=== PATIENT | female | born 2000 | race Caucasian/White ===

== ENCOUNTER 2020-03-08 10:19 | Emergency (ER) | payer MEDICAID, SELFPAY ==
[2020-03-08 10:26] VITALS: BP 109/64; PULSE 88; RESP 16; TEMP 36.6; O2SAT 98; BMI 28.3
--- NOTE | 2020-03-08 10:59 | ED.GENADULT ---
HPI - General Adult General Chief complaint: General Medical Stated complaint: COVID TESTING Time Seen by Provider: 03/08/20 10:22 History of Present Illness HPI narrative: Patient complains of body aches, feeling tired, mild runny nose and wants to be tested for COVID, she denies any close exposure Related Data Allergies Allergy/AdvReac Type Severity Reaction Status Date / Time No Known Allergies Allergy Unverified 01/24/20 19:23 [No Known Allergies*] Review of Systems Review of Systems: Review systems is positive for body aches fatigue and runny nose There is no cough no sputum no fever no chills no shortness of breath no chest pain, no sore throat no abdominal pain no nausea no vomiting no diarrhea, no skin rash Yes all other systems are reviewed and are negative PMFSH Past Medical History Source: nursing notes reviewed Medical History (Updated 03/08/20 @ 11:14 by NICHOLE Samuels) No known health problems Social History Social History Alcohol intake: never Smoked in Last 30 Days: No Use of substances other than those prescribed or required for medical reasons: No Advance Directives: No Advance Directives Information Provided: No Physical Exam Vital Signs: Vital Signs: Vital Signs Temp Pulse Resp BP Pulse Ox 03/08/20 10:26 97.8 F 88 16 109/64 98 Body Mass Index 28.3 General appearance is A&O x3 comfortable no acute distress Facial exam the eyes were not red, no discharge, no sinus tenderness The neck was supple The chest was clear to auscultation bilaterally, no respiratory distress, breath sounds were full and equal The heart was no murmurs rate and rhythm regular Extremities no edema, no calf tenderness No rash Course Course Course Narrative: Well-appearing patient was tested for COVID Discharge Plan Discharge Clinical Impression: Acute viral syndrome Patient Disposition: Home, Self-Care Additional Instructions: We will call you with COVID test results in 1-3 days For return to work you would need a negative COVID test and improvement in symptoms as the testing can miss some cases Return to ER any time any worse condition or any concerns Stand Alone Forms: Work/School Release Interventions: ED Discharge Assessment Last Done: 03/08/20 11:18 Discharge Date/Time: 03/08/20 11:34
== END 2020-03-08 11:34 | disposition home or self-care (01) ==
PROVIDERS: Physician Assistant Medical; Emergency Provider Emergency Medicine
DX: B34.9 Viral infection, unspecified (principal); Z11.59 Encounter for screening for other viral diseases
CPT/HCPCS: 99283; U0003

== ENCOUNTER → 2020-04-15 12:53 | Outpatient (BNVA) | payer MEDICAID, SELFPAY | PROVIDERS: Visit Provider Advanced Practice Midwife | DX: Z32.01 Encounter for pregnancy test, result positive (principal); O26.891 Other specified pregnancy related conditions, first trimester; N92.6 Irregular menstruation, unspecified; Z3A.12 12 weeks gestation of pregnancy | CPT/HCPCS: 81025; 99212 ==

== ENCOUNTER → 2020-04-22 10:08 | Outpatient (BNVA) | payer MEDICAID, SELFPAY | PROVIDERS: Visit Provider Advanced Practice Midwife | DX: Z76.89 Persons encountering health services in other specified circumstances (principal) ==

== ENCOUNTER 2020-04-25 12:50 | Outpatient (REF) | payer MEDICAID, SELFPAY ==
--- NOTE | 2020-04-25 12:57 | US_ITS ---
EXAMINATION: OBSTETRICAL ULTRASOUND, Follow up HISTORY: 19-year-old with unknown LMP COMPARISON: None in this TECHNIQUE: Real time transabdominal imaging with color and M-mode Doppler. PRESENTATION: Breech PLACENTA LOCATION: Posterior without previa AMNIOTIC FLUID: Normal MEASUREMENTS: 1. Biparietal Diameter: 2.8 cm; 15.1 wks 2. Head Circumference: 10.7 cm; 15.1 wks 3. Abdominal Circumference: 8.3 cm; 14.5 wks 4. Femur Length: 1.6 cm; 14.4 wks 5. Heart Rate: 142 beats per minute GESTATIONAL AGE: 1. Established GA: N/A wks 2. GA from [facility]: 15.0 wks ESTIMATED DATE OF DELIVERY: 1. Established KRISTIAN: N/A 2. KRISTIAN from [facility]: 10/17/2020 US/US OB limited IMPRESSION: 1. Single active fetus 2. Biometry is consistent with 15.0 weeks. The best KRISTIAN is 10/17/2020 based on today's examination. RECOMMENDATIONS: 1. f/u in approximately 4 weeks for survey. Thank you very much for this referral.
== END 2020-04-25 12:51 | disposition home or self-care (01) ==
LOC: HO.US 12:50
PROVIDERS: Visit Provider Advanced Practice Midwife
DX: O26.842 Uterine size-date discrepancy, second trimester (principal); Z3A.15 15 weeks gestation of pregnancy
CPT/HCPCS: 76815

== ENCOUNTER → 2020-04-29 13:59 | Outpatient (BNVA) | payer MEDICAID, SELFPAY | PROVIDERS: Visit Provider Advanced Practice Midwife | DX: Z34.82 Encounter for supervision of other normal pregnancy, second trimester (principal) | CPT/HCPCS: 99212 ==

== ENCOUNTER 2020-05-07 10:52 | Outpatient (REF) | payer MEDICAID, SELFPAY ==
[2020-05-10 08:47] LABS: C. trachomatis RNA TMA NOT DETECTED (NOT DETECTED); N. gonorrhoeae RNA TMA NOT DETECTED (NOT DETECTED)
== END 2020-05-07 10:53 | disposition home or self-care (01) ==
LOC: HO.LAB 10:52
PROVIDERS: Visit Provider Advanced Practice Midwife
DX: O99.282 Endocrine, nutritional and metabolic diseases complicating pregnancy, second trimester (principal); O99.342 Other mental disorders complicating pregnancy, second trimester; Z3A.18 18 weeks gestation of pregnancy
CPT/HCPCS: 87491; 87591; 90686; 99212

== ENCOUNTER 2020-05-23 13:21 | Outpatient (REF) | payer MEDICAID, SELFPAY ==
--- NOTE | 2020-05-23 13:43 | US_ITS ---
EXAMINATION: US OBSTETRICAL CLINICAL INFORMATION: 19-year-old at 19.0 weeks of gestation Suspected anomaly COMPARISON: 04/25/2020 TECHNIQUE: Real-time transabdominal ultrasound was performed using C1-5 megahertz transducer. FINDINGS: A single, active, fetus is seen in breech presentation. The placenta is posterior, and the amniotic fluid volume is wnl. MEASUREMENTS: 1. Biparietal Diameter: 3.9 cm; 18.0 wks 2. Occipital Frontal Diameter: 5.6 cm 3. Head Circumference: 16.0 cm; 19.0 wks 4. Abdominal Circumference: 13.3 cm; 18.6 wks 5. Femur Length: 2.8 cm; 18.5 wks 6. Humerus Length: 2.9 cm; 19.3 wks 7. Tibia Length: 2.7 cm; 19.5 wks 8. Ulna Length: 0.8 cm; 20.2 wks 9. Lateral ventricle: 0.6 cm 10. Cerebellum: 1.9 cm; 19.2 wks 11. Cisterna Magna: 0.5 cm 12. Nuchal Fold: 4.12 mm 13. Heart Rate: 144 beats per minute Rt ovary: normal Lt ovary: normal Cervical length 3.6 cm on T/A. GESTATIONAL AGE: 1. Established GA: 19.0 wks 2. GA from [facility]: 18.5 wks ESTIMATED DATE OF DELIVERY: 1. Established KRISTIAN: 10/17/2020 2. KRISTIAN from [facility]: 10/19/2020 ANATOMY: The visualized anatomy includes but not limited to: 1. Cranium: Normal 2. Intracranial anatomy: cavum septum pellucidi, lateral ventricles, choroid plexus, cerebellum, posterior fossa, third and fourth ventricles. 3. face: orbits, lip/palate, profile, nasal bone 4. Heart: four-chamber view of the heart, ventricular septum, foramen ovale, pulmonary vein, left and right outflow tracts, three-vessel view, 3 vessel trachea view, aortic and ductal arches, situs.. 5. Diaphragm: Normal 6. Abdominal wall: Normal 7. Cord Insertion: Normal 8. Spine: Cervical, thoracic, lumbar, sacral. 9. Stomach: Normal size and shape 10. Right Kidney: Normal 11. Left Kidney: Normal 12. 3 vessel cord: Normal 13. Upper extremity: Open hands, fifth digit. 14. Lower extremity: Tibia, fibula, bilateral feet. 15. Bladder: Normal 16. Genitalia: Male, patient aware US/US OB /maternal detail IMPRESSION: 1. Single, living, intrauterine with appropriate biometry. 2. Normal survey DISCUSSION: I reviewed today's ultrasound findings. We discussed the limitations of ultrasound in diagnosing aneuploidy and other congenital abnormalities. I reviewed the differences between screening test and diagnostic test. Amniocentesis was discussed and declined. She was informed that the baseline incidence of congenital abnormalities is approximately 3-5%. Not all these conditions are diagnosable in utero. RECOMMENDATIONS: No further ultrasound has been scheduled today. Thank you for allowing me to participate in her care. Total time 25 minutes (3,10,7)
[2020-05-23 16:29] LABS: MANUAL DIFF FLAG NO
[2020-05-23 16:39] LABS: Basophils Absolute Auto 0.1 X10*3/uL (0.0-0.2); Basophils Percent Auto 0.6 % (0-2); Eosinophils Absolute Auto 0.1 X10*3/uL (0.0-0.4); Eosinophils Percent Auto 1.3 % (0-4); Hematocrit 40.1 % (37-47); Hemoglobin 13.4 g/dl (12.0-16.0); Imm Gran Abs Auto 0.02 X10*3/uL (0.00-0.03); Imm Gran Pct Auto 0.2 % (0.0-0.4); Lymphocytes Absolute Auto 1.6 X10*3/uL (1.2-4.9); Lymphocytes Percent Auto 18.3 % (20-40); Mean Corpuscular HGB Conc 33.4 g/dl (31.0-35.0); Mean Corpuscular Hemoglobin 29.8 pg (27.0-33.0); Mean Corpuscular Volume 89.3 fL (80-98); Mean Platelet Volume 10.8 fL (9.4-12.3); Monocytes Absolute Auto 0.8 X10*3/uL (0.1-1.2); Neutrophils Absolute Auto 6.1 X10*3/uL (2.0-8.3); Neutrophils Percent Auto 70.6 % (45-73); Platelet Count 249 X10*3/uL (160-400); Red Blood Count 4.49 X10*6/uL (4.20-5.50); Red Cell Distribution Width 12.1 % (11.0-16.0); White Blood Count 8.6 X10*3/uL (4.8-10.8)
[2020-05-23 17:29] LABS: Syphilis Screen Nonreactive (Nonreactive)
[2020-05-23 17:35] LABS: TSH reflex Free T4 3.48 mIU/mL (0.32-4.0)
[2020-05-23 17:53] LABS: Amphetamine Screen Urine Not Detected (Not Detect); Barbiturates, Urine Not Detected (Not Detect); Benzodiazepines Screen Urine Not Detected (Not Detect); Cannabinoid Screen Urine Not Detected (Not Detect); Cocaine Screen Urine Not Detected (Not Detect); Opiate Screen Urine Not Detected (Not Detect); Phencyclidine Screen Urine Not Detected (Not Detect)
[2020-05-24 21:52] LABS: Rubella IgG Antibody 7.55 Index
[2020-05-26 08:20] LABS: HBsAGNum1 0.19 S/CO (0.00-0.99); HIV AB/AG Nonreactive (Nonreactive); HIV Num 1 0.09 S/CO (0.00-0.99); Hepatitis B Surface Antigen Negative (Negative)
[2020-05-26 09:05] LABS: ~HepC Num1 0.08 S/CO (0.00-0.79); ~Hepatitis C Antibody Nonreactive (Nonreactive)
[2020-05-26 16:32] LABS: C. trachomatis RNA TMA NOT DETECTED (NOT DETECTED); N. gonorrhoeae RNA TMA NOT DETECTED (NOT DETECTED)
== END 2020-05-23 13:22 | disposition home or self-care (01) ==
LOC: HO.US 13:21
PROVIDERS: Visit Provider Advanced Practice Midwife
DX: O35.9XX0 Maternal care for (suspected) fetal abnormality and damage, unspecified, not applicable or unspecified (principal); Z3A.19 19 weeks gestation of pregnancy
CPT/HCPCS: 76811; 80307; 84443; 85025; 86762; 86780; 86787; 86803; 86850; 86900; 86901; 87086; 87340; 87389; 87491; 87591

== ENCOUNTER → 2020-06-05 12:50 | Outpatient (BNVA) | payer MEDICAID, SELFPAY | PROVIDERS: Visit Provider Advanced Practice Midwife | DX: Z34.92 Encounter for supervision of normal pregnancy, unspecified, second trimester (principal); E66.9 Obesity, unspecified | CPT/HCPCS: 81003; 99212 ==

== ENCOUNTER → 2020-07-02 13:17 | Outpatient (BNVA) | payer MEDICAID, SELFPAY | PROVIDERS: Visit Provider Advanced Practice Midwife | DX: Z34.92 Encounter for supervision of normal pregnancy, unspecified, second trimester (principal) | CPT/HCPCS: 81003; 99212 ==

== ENCOUNTER → 2020-07-24 13:34 | Outpatient (BNVA) | payer MEDICAID, SELFPAY | PROVIDERS: Visit Provider Advanced Practice Midwife | DX: Z34.93 Encounter for supervision of normal pregnancy, unspecified, third trimester (principal); Z13.31 Encounter for screening for depression; Z3A.27 27 weeks gestation of pregnancy | CPT/HCPCS: 81003; 99212 ==

== ENCOUNTER → 2020-08-21 09:55 | Outpatient (BNVA) | payer MEDICAID, SELFPAY | PROVIDERS: Visit Provider Advanced Practice Midwife | DX: Z34.93 Encounter for supervision of normal pregnancy, unspecified, third trimester (principal); Z3A.31 31 weeks gestation of pregnancy | CPT/HCPCS: 99212 ==

== ENCOUNTER 2020-10-03 14:57 | Outpatient (REF) | payer MEDICAID, SELFPAY ==
[2020-10-04 02:28] LABS: CT PCR NOT DETECTED (Not Detect.); NG PCR NOT DETECTED (Not Detect.)
== END 2020-10-03 14:58 | disposition home or self-care (01) ==
LOC: HO.LAB 14:57
PROVIDERS: Visit Provider Advanced Practice Midwife
DX: O99.213 Obesity complicating pregnancy, third trimester (principal); E66.9 Obesity, unspecified; Z3A.38 38 weeks gestation of pregnancy
CPT/HCPCS: 87081; 87491; 87591; 99212

== ENCOUNTER 2020-10-10 10:53 | Outpatient (REF) | payer MEDICAID, SELFPAY ==
[2020-10-10 14:30] LABS: Hematocrit 40.1 % (37-47); Hemoglobin 13.3 g/dl (12.0-16.0); Mean Corpuscular HGB Conc 33.2 g/dl (31.0-35.0); Mean Corpuscular Hemoglobin 28.6 pg (27.0-33.0); Mean Corpuscular Volume 86.2 fL (80-98); Mean Platelet Volume 12.2 fL (9.4-12.3); Platelet Count 188 X10*3/uL (160-400); Red Blood Count 4.65 X10*6/uL (4.20-5.50); Red Cell Distribution Width 13.1 % (11.0-16.0); White Blood Count 8.7 X10*3/uL (4.8-10.8)
[2020-10-10 14:52] LABS: Glucose 1 Hour PP 50gm Dose 76 mg/dL (60-140)
[2020-10-10 14:59] LABS: Syphilis Screen Nonreactive (Nonreactive)
[2020-10-11 12:47] LABS: CT PCR NOT DETECTED (Not Detect.); NG PCR NOT DETECTED (Not Detect.)
== END 2020-10-10 10:54 | disposition home or self-care (01) ==
LOC: HO.LAB 10:53
PROVIDERS: Advanced Practice Midwife; Absent Provider Advanced Practice Midwife; Visit Provider Advanced Practice Midwife
DX: Z34.93 Encounter for supervision of normal pregnancy, unspecified, third trimester (principal); Z20.2 Contact with and (suspected) exposure to infections with a predominantly sexual mode of transmission
CPT/HCPCS: 36415; 81003; 85027; 86780; 87491; 87591; 99212

== ENCOUNTER → 2020-10-17 14:37 | Outpatient (BNVA) | payer MEDICAID, SELFPAY | PROVIDERS: Visit Provider Advanced Practice Midwife | DX: Z34.93 Encounter for supervision of normal pregnancy, unspecified, third trimester (principal); Z3A.40 40 weeks gestation of pregnancy | CPT/HCPCS: 81003; 99212 ==

== ENCOUNTER 2020-11-14 12:35 | Outpatient (REF) | payer MEDICAID, SELFPAY ==
--- NOTE | ~2020-11-14 | XR_ITS ---
EXAMINATION: XR CHEST CLINICAL INFORMATION: Shortness of breath. COMPARISON: None TECHNIQUE: 2 views of the chest were obtained. FINDINGS: The lungs are clear. The cardiomediastinal silhouette is normal in size. There is no pleural effusion or pneumothorax. No acute osseous abnormality. XR/XR chest 2V IMPRESSION: No acute cardiopulmonary findings.
== END 2020-11-14 12:36 | disposition home or self-care (01) ==
LOC: HO.XRAY 12:35
PROVIDERS: PCP Registered Nurse; Visit Provider Nurse Practitioner Family
DX: R06.02 Shortness of breath (principal); R09.89 Other specified symptoms and signs involving the circulatory and respiratory systems
CPT/HCPCS: 71046

== ENCOUNTER 2020-11-28 14:03 | Outpatient (REF) | payer MEDICAID, SELFPAY | END 2020-11-28 14:04 | disposition home or self-care (01) | LOC: HO.LAB 14:03 | PROVIDERS: Visit Provider Advanced Practice Midwife | DX: Z39.2 Encounter for routine postpartum follow-up (principal); Z30.09 Encounter for other general counseling and advice on contraception; Z30.011 Encounter for initial prescription of contraceptive pills | CPT/HCPCS: 88142; 99212 ==

== ENCOUNTER 2021-01-17 09:29 | Emergency (ER) | payer MEDICAID, SELFPAY ==
--- NOTE | ~2021-01-17 | XR_ITS ---
EXAMINATION: XR CHEST CLINICAL INFORMATION: Difficulty breathing COMPARISON: Chest 11/14/2020 TECHNIQUE: Frontal view of the chest was obtained. FINDINGS: The lungs are well-expanded and clear of acute process. The heart size and pulmonary vascularity is normal. No gross bony abnormality seen. XR/XR chest 1V IMPRESSION: Unremarkable chest exam.
--- NOTE | ~2021-01-17 | CT_ITS ---
EXAMINATION: CT ANGIOGRAM OF THE CHEST WITH AND WITHOUT CONTRAST (CT PULMONARY ANGIOGRAM FOR PE) CLINICAL INFORMATION: Reason for Exam S/P Post Pastrum C Sob/Chest Discomfort ? Pe COMPARISON: CXR from 01/17/2021 TECHNIQUE: Prior to contrast administration, noncontrast localization images were obtained. Subsequently, multidetector volumetric imaging was performed from the thoracic inlet to below the diaphragms following the administration of 65 mL Omnipaque 350 intravenous contrast. No contrast reaction reported. Sagittal, coronal, and MIP oblique sagittal reformatted images were obtained on the CT workstation, uploaded to PACS, and reviewed. This CT examination was performed using dose optimization techniques as appropriate, variously including the following: *Automated exposure control *Adjustment of mA and/or kV according to patient size (this includes techniques or standardized protocols for targeted exams where dose is matched to indication/reason for exam; i.e. extremities or head) *Use of iterative reconstruction technique DLP: Total exam dose-length product 272 mGy-cm FINDINGS: LUNGS AND PLEURA: Lungs are well expanded and clear. No pulmonary consolidation, edema or pleural effusion. No pneumothorax. QUALITY OF STUDY/CONTRAST BOLUS: Satisfactory. CARDIOVASCULAR: Pulmonary arteries are normal in size. No embolic filling defects within the main, lobar or segmental vessels. The heart size is normal. No pericardial effusion. Thoracic aorta is normal; no aneurysm or dissection. MEDIASTINUM/LOWER NECK: The esophagus is grossly normal. No mediastinal mass. There is some residual thymic tissue in the anterior mediastinum. LYMPHATICS: No pathologic sized axillary, hilar or mediastinal lymph nodes. UPPER ABDOMEN: Normal. No contrast reflux into the inferior vena cava. OSSEOUS STRUCTURES: No acute or suspicious osseous abnormality. CT/CT angio chest PE protocol IMPRESSION: No acute imaging abnormalities within the chest. No evidence of pulmonary edema, embolism or pneumonia.
[2021-01-17 10:14] VITALS: BP 115/68; PULSE 114; RESP 18; TEMP 37.4; O2SAT 97; BMI 33.9
[2021-01-17 10:42] LABS: IDNOW Serial# 9DD0AD1C; Strep A Nucleic Acid Negative (Negative)
--- NOTE | 2021-01-17 11:03 | ED_ITS ---
HPI - URI/Sore Throat General Chief Complaint: General Medical Stated Complaint: flu like symptons, difficulty breathing Time Seen by Provider: 01/17/21 09:47 Source: patient Mode of arrival: ambulatory Limitations: no limitations History of Present Illness HPI Narrative: 20-year-old female who is currently had a full-term fetus on 10/18/20 no complications who is currently bottle feeding her infant presenting to the ED with complaints of upper respiratory symptoms which include subjective fevers, chills, fatigue, malaise, body aches, sore throat, cough with chest congestion and shortness of breath with deep inspiration for the past few days worse today. Reports that her entire family/household has similar symptoms although she feels like she may be the worst at this point. She denies any recent travel or any other sick contacts. She reports that her family including her mother have been tested for COVID her mother was tested yesterday and was negative and everyone else as tested negative. She denies any measured fevers, dizziness, change in vision, nausea/vomiting, chest pain, dyspnea on exertion, orthopnea, palpitations, abdominal pain, back pain, dysuria, hematuria, black or bloody stools, diarrhea or constipation any focal weakness or any other symptoms complaints or concerns at this time. MD elicited complaint: cough and sore throat Pertinent past history: other ( 10/18/2020) Onset (ago): day(s) (For the past few days worse today) Consistency: constant and progressively worsening Severity: moderate Exacerbating factors: swallowing and deep breaths Relieving factors: nothing Context: sick contacts and recent hospitalization (On 10/18/2020 at [facility]) Associated symptoms: fever, chills, myalgias, rhinorrhea, nasal congestion, sore throat, cough and shortness of breath Treatments prior to arrival: none Related Data Home Medications Medication Instructions Recorded Confirmed prenat.vits,bethel,lwe-ipkh-ludlw 1 tab PO DAILY 04/29/20 10/03/20 Previous Rx's Medication Instructions Recorded levonorgestrel-ethinyl estradiol 1 tab PO DAILY #84 tab 11/28/20 0.1 mg-20 mcg tablet albuterol sulfate 90 mcg/actuation 1 inh INHALATION QID PRN #8.5 g 01/17/21 aerosol inhaler azithromycin 250 mg tablet See Rx Instructions .ROUTE 01/17/21 .COMPLEX #6 tab codeine 10 mg-guaifenesin 100 mg/5 5 ml PO Q6H PRN #120 ml 01/17/21 mL oral liquid (Guaifenesin AC) cyclobenzaprine 10 mg tablet 10 mg PO Q8H #10 tab 01/17/21 Allergies Allergy/AdvReac Type Severity Reaction Status Date / Time No Known Allergies Allergy Verified 11/28/20 14:34 [No Known Allergies*] Review of Systems Review of Systems: Constitutional : Positive subjective fevers/chills/fatigue/malaise, No Weight loss, No Night Sweats ENT/Mouth: Positive sore throat, No ear pain, No Difficulty swallowing Cardiovascular : Positive shortness of breath, No Chest Pain, No Dyspnea on Exertion, No Orthopnea, No Edema, No Palpitations Respiratory : Positive Cough, No Sputum, No Wheezing Gastrointestinal : No Nausea, No Vomiting, No abdominal pain, No Diarrhea, No blood streaked emesis, No coffee-ground emesis, No gross hematemesis, No blood streak stool, No gross hematochezia, No Melena Genitourinary : No irregular bleeding, No Dysuria, No Urinary Frequency, No Hematuria,No Urinary Incontinence, No Urgency, No Flank Pain Musculoskeletal : No joint pain, No Myalgias, No Joint Swelling Skin : No Skin Lesions, No rash Neuro : Positive intermittent headaches, No Weakness, No Numbness, No Paresthesias, No Loss of Consciousness, No Dizziness Psych : No Social Issues, Heme/Lymph: No Bruising, No Bleeding,No Lymphadenopathy Endocrine : No Polyuria, No Polydipsia, No Temperature Intolerance Yes all other systems are reviewed and are negative [facility] Past Medical History Attestation statement: The following information was validated with the patient. Medical History No known health problems Family History Family History Mother No problems noted. Father No problems noted. Maternal Grandfather No problems noted. Maternal Grandmother Hx of diabetes mellitus Paternal Grandfather Hx of coronary artery disease Hx of diabetes mellitus Hx of primary hypertension Paternal Grandmother No problems noted. Sister No problems noted. Paternal Aunt No problems noted. Social History Social History Household Members: Significant Other Alcohol intake: never Advance Directives: No Advance Directives Information Provided: No Current occupational status: employed Current occupational exposures/hazards: No Sexual orientation: Straight/Heterosexual Physical Exam Vital Signs: Vital Signs: Last Vital Signs Temp 99.3 F 01/17/21 10:14 Pulse 94 01/17/21 13:06 Resp 19 01/17/21 13:06 BP 122/71 01/17/21 13:06 Pulse Ox 99 01/17/21 13:06 Body Mass Index 33.9 vital signs have been reviewed as normal and appeared to be correct. Blood pressure normal. Heart rate tachycardic at 114. Respiration rate normal. Temperature normal. Oxygen saturation normal. Appearance: Alert. Oriented X3. No acute distress. Head: Normal external exam. Normocephalic. Atraumatic. Eyes: PERRLA. EOMI. Conjunctiva and sclera normal. Eyelids normal. ENT: EAC normal. TM's Normal. Posterior pharynx mildly erythematous. No exudate is noted. Uvula midline. Moist mucous membranes. No trismus noted. No drooling noted. No muffled voice noted. No stridor. No foreign bodies noted. Neck: Normal inspection. Neck supple. FROM. No adenopathy. Thyroid Normal. No meningeal signs. No neck mass noted. CVS: Normal heart rate and rhythm. Heart sound normal. Pulses normal throughout. No murmurs/rales/gallops. Respiratory: Patient reports pain with deep inspiration otherwise No respiratory distress. Breath sounds normal. No wheezes/rales/rhonchi noted. Chest nontender. No accessory muscle usage noted or decreased air movement noted. Abdomen: Soft and nontender. Bowel sounds normal in all 4 quadrants. No distention noted. No organomegaly noted. No visible injury noted. Back: Full range of motion noted. No rashes/lesion/induration/fluctuance or signs of infection noted. Skin: Skin warm and dry. Normal skin color. Normal skin turgor. No rashes/lesions/lacerations noted. Extremities: No lower extremity edema. No calf tenderness is noted. Extremities exhibit normal range of motion. Extremities nontender. Neuro: Oriented X 3. No motor deficit. No sensory deficit. Reflexes normal. Normal steady gait. No focal neuro deficits noted. Vascular: + radial pulses/+ 2 distal pedal pulses/+2 dorsalis pedis b/l. Normal cap refill. No cyanosis noted to upper extremity nails and lower extremity toes nails. Course Course Course Narrative: 11am - 20-year-old female currently had a full-term fetus on 10/18/2020 no complications presenting to the ED with URI complaints over the past few days worse today. Positive sick contacts at home. They were tested negative for COVID. She is not vaccinated for COVID. Denies recent travel. Plan: Labs including D-dimer if elevated she will have a CTA of chest for PE, chest x-ray, COVID/RSV/flu swab, rapid strep, UA, UHCG. Provide 975 mg of Tylenol and 10 mg of Decadron then re-evaluate. Reevaluation(s) Reevaluation #1: - patient with an elevated white blood cell count at 14,000. Otherwise all other labs are within normal limits. UA within normal limits no evidence of UTI. UHCG negative for . Patient negative for COVID/RSV/flu. Respiratory panel added and pending at this time. Chest x-ray within normal limits no acute processes were noted. CTA of chest for PE negative for PE or any other acute processes. - therefore patient most likely with upper respiratory infection. Will DC home with symptomatic treatment along with instructions return if any new or worsening symptoms to follow up with primary care provider and to self isolate for at least 7-10 days I will give her a work note. Patient understands agrees with this plan. Time: 15:18 MDM - URI/Sore Throat Medical Records Attestation: I reviewed the patient's medical records. Lab Data Attestation: I reviewed the patient's lab results. Result diagrams: 01/17/21 11:18 01/17/21 11:18 Labs: Lab Results 01/17/21 01/17/21 01/17/21 Range/Units 10:30 10:30 11:17 WBC (4.8-10.8) X10*3/uL RBC (4.20-5.50) X10*6/uL Hgb (12.0-16.0) g/dl Hct (37-47) % MCV (80-98) fL MCH (27.0-33.0) pg MCHC (31.0-35.0) g/dl RDW (11.0-16.0) % Plt Count (160-400) X10*3/uL MPV (9.4-12.3) fL Immature Gran % (Auto) (0.0-0.4) % Neut % (Auto) (45-73) % Lymph % (Auto) (20-40) % [place] % (Auto) (2-11) % Eos % (Auto) (0-4) % Baso % (Auto) (0-2) % Lymph # (Auto) (1.2-4.9) X10*3/uL [place] # (Auto) (0.1-1.2) X10*3/uL Eos # (Auto) (0.0-0.4) X10*3/uL Baso # (Auto) (0.0-0.2) X10*3/uL Abs Immat Gran (auto) (0.00-0.03) X10*3/uL Absolute Neuts (auto) (2.0-8.3) X10*3/uL Absolute Nucleated RBC (0.0-0.012) X10*3/uL Nucleated RBC % (auto) (0.0-0.2) /100WBC PT 11.8 (9.9-13.0) SEC INR 1.0 (0.9-1.1) D-Dimer 657 NG/ML Sodium (135-145) mmol/L Potassium (3.3-5.1) mmol/L Chloride (96-108) mmol/L Carbon Dioxide (22-29) mmol/L Anion Gap (12-20) BUN (9-16) mg/dL Creatinine (0.5-1.4) mg/dL Estim Creat Clear Calc Estimated GFR Random Glucose (60-115) mg/dL Calcium (8.4-10.2) mg/dL Magnesium (1.6-2.6) mg/dL Total Bilirubin (0.0-1.0) mg/dL AST (5-31) U/L ALT (0-31) U/L Alkaline Phosphatase (39-117) U/L Total Protein (6.5-8.0) g/dL Albumin (3.5-5.0) g/dL Urine Color Urine Appearance Urine pH (5.0-8.0) Ur Specific [place] (1.005-1.025) Urine Protein (NEG-TRACE) MG/DL Urine Glucose (UA) (NEG) MG/DL Urine Ketones (NEG) MG/DL Urine Blood (NEG) Urine Nitrite (NEG) Ur Leukocyte Esterase (NEG) Urine Test (NEGATIVE) Coronavirus (PCR) NEGATIVE (Negative) Influenza Type A (PCR) NEGATIVE (Negative) Influenza Type B (PCR) NEGATIVE (Negative) RSV RNA Qual (PCR) NEGATIVE (Negative) S. pyogenes GrpA LADONNA Negative (Negative) 01/17/21 01/17/21 01/17/21 Range/Units 11:18 11:18 11:41 WBC 14.7 H (4.8-10.8) X10*3/uL RBC 5.01 (4.20-5.50) X10*6/uL Hgb 15.0 (12.0-16.0) g/dl Hct 44.7 (37-47) % MCV 89.2 (80-98) fL MCH 29.9 (27.0-33.0) pg MCHC 33.6 (31.0-35.0) g/dl RDW 13.3 (11.0-16.0) % Plt Count 269 D (160-400) X10*3/uL MPV 10.0 (9.4-12.3) fL Immature Gran % (Auto) 0.3 (0.0-0.4) % Neut % (Auto) 82.1 H (45-73) % Lymph % (Auto) 6.6 L (20-40) % [place] % (Auto) 5.1 (2-11) % Eos % (Auto) 5.3 H (0-4) % Baso % (Auto) 0.6 (0-2) % Lymph # (Auto) 1.0 L (1.2-4.9) X10*3/uL [place] # (Auto) 0.8 (0.1-1.2) X10*3/uL Eos # (Auto) 0.8 H (0.0-0.4) X10*3/uL Baso # (Auto) 0.1 (0.0-0.2) X10*3/uL Abs Immat Gran (auto) 0.05 H (0.00-0.03) X10*3/uL Absolute Neuts (auto) 12.0 H (2.0-8.3) X10*3/uL Absolute Nucleated RBC 0.000 (0.0-0.012) X10*3/uL Nucleated RBC % (auto) 0.0 (0.0-0.2) /100WBC PT (9.9-13.0) SEC INR (0.9-1.1) D-Dimer NG/ML Sodium 138 (135-145) mmol/L Potassium 4.1 (3.3-5.1) mmol/L Chloride 107 (96-108) mmol/L Carbon Dioxide 23 (22-29) mmol/L Anion Gap 12 (12-20) BUN 7 L (9-16) mg/dL Creatinine 0.68 (0.5-1.4) mg/dL Estim Creat Clear Calc 136.8 Estimated GFR > 60 Random Glucose 95 (60-115) mg/dL Calcium 9.7 (8.4-10.2) mg/dL Magnesium 1.9 (1.6-2.6) mg/dL Total Bilirubin 0.5 (0.0-1.0) mg/dL AST 18 (5-31) U/L ALT 14 (0-31) U/L Alkaline Phosphatase 109 (39-117) U/L Total Protein 7.1 (6.5-8.0) g/dL Albumin 4.4 (3.5-5.0) g/dL Urine Color STRAW Urine Appearance CLEAR Urine pH 6.5 (5.0-8.0) Ur Specific [place] <= 1.005 (1.005-1.025) Urine Protein NEG (NEG-TRACE) MG/DL Urine Glucose (UA) NEG (NEG) MG/DL Urine Ketones NEG (NEG) MG/DL Urine Blood NEG (NEG) Urine Nitrite NEG (NEG) Ur Leukocyte Esterase NEG (NEG) Urine Test (NEGATIVE) Coronavirus (PCR) (Negative) Influenza Type A (PCR) (Negative) Influenza Type B (PCR) (Negative) RSV RNA Qual (PCR) (Negative) S. pyogenes GrpA LADONNA (Negative) 01/17/21 Range/Units 11:49 WBC (4.8-10.8) X10*3/uL RBC (4.20-5.50) X10*6/uL Hgb (12.0-16.0) g/dl Hct (37-47) % MCV (80-98) fL MCH (27.0-33.0) pg MCHC (31.0-35.0) g/dl RDW (11.0-16.0) % Plt Count (160-400) X10*3/uL MPV (9.4-12.3) fL Immature Gran % (Auto) (0.0-0.4) % Neut % (Auto) (45-73) % Lymph % (Auto) (20-40) % [place] % (Auto) (2-11) % Eos % (Auto) (0-4) % Baso % (Auto) (0-2) % Lymph # (Auto) (1.2-4.9) X10*3/uL [place] # (Auto) (0.1-1.2) X10*3/uL Eos # (Auto) (0.0-0.4) X10*3/uL Baso # (Auto) (0.0-0.2) X10*3/uL Abs Immat Gran (auto) (0.00-0.03) X10*3/uL Absolute Neuts (auto) (2.0-8.3) X10*3/uL Absolute Nucleated RBC (0.0-0.012) X10*3/uL Nucleated RBC % (auto) (0.0-0.2) /100WBC PT (9.9-13.0) SEC INR (0.9-1.1) D-Dimer NG/ML Sodium (135-145) mmol/L Potassium (3.3-5.1) mmol/L Chloride (96-108) mmol/L Carbon Dioxide (22-29) mmol/L Anion Gap (12-20) BUN (9-16) mg/dL Creatinine (0.5-1.4) mg/dL Estim Creat Clear Calc Estimated GFR Random Glucose (60-115) mg/dL Calcium (8.4-10.2) mg/dL Magnesium (1.6-2.6) mg/dL Total Bilirubin (0.0-1.0) mg/dL AST (5-31) U/L ALT (0-31) U/L Alkaline Phosphatase (39-117) U/L Total Protein (6.5-8.0) g/dL Albumin (3.5-5.0) g/dL Urine Color Urine Appearance Urine pH (5.0-8.0) Ur Specific [place] (1.005-1.025) Urine Protein (NEG-TRACE) MG/DL Urine Glucose (UA) (NEG) MG/DL Urine Ketones (NEG) MG/DL Urine Blood (NEG) Urine Nitrite (NEG) Ur Leukocyte Esterase (NEG) Urine Test NEGATIVE (NEGATIVE) Coronavirus (PCR) (Negative) Influenza Type A (PCR) (Negative) Influenza Type B (PCR) (Negative) RSV RNA Qual (PCR) (Negative) S. pyogenes GrpA LADONNA (Negative) Imaging Data Chest x-ray: Attestation: I personally reviewed and interpreted this imaging study as follows: Radiologist's impression: FINDINGS: The lungs are well-expanded and clear of acute process. The heart size and pulmonary vascularity is normal. No gross bony abnormality seen. XR/XR chest 1V IMPRESSION: Unremarkable chest exam. CTA of chest for PE: Attestation: I personally reviewed and interpreted this imaging study as follows: Radiologist's impression: FINDINGS: LUNGS AND PLEURA: Lungs are well expanded and clear. No pulmonary consolidation, edema or pleural effusion. No pneumothorax. QUALITY OF STUDY/CONTRAST BOLUS: Satisfactory. CARDIOVASCULAR: Pulmonary arteries are normal in size. No embolic filling defects within the main, lobar or segmental vessels. The heart size is normal. No pericardial effusion. Thoracic aorta is normal; no aneurysm or dissection. MEDIASTINUM/LOWER NECK: The esophagus is grossly normal. No mediastinal mass. There is some residual thymic tissue in the anterior mediastinum. LYMPHATICS: No pathologic sized axillary, hilar or mediastinal lymph nodes. UPPER ABDOMEN: Normal. No contrast reflux into the inferior vena cava. OSSEOUS STRUCTURES: No acute or suspicious osseous abnormality.? CT/CT angio chest PE protocol IMPRESSION: No acute imaging abnormalities within the chest. No evidence of pulmonary edema, embolism or pneumonia. ECG Data Attestation: I personally reviewed and interpreted this ECG as follows: ECG interpretation date: 01/17/21 ECG interpretation time: 11:38 Interpretation: Sinus tachycardia with a ventricular rate of 107 with a normal NE interval normal QRS duration normal QT/QTC interval. No acute ischemic change are noted. Critical Care Time Critical Care Time Critical Care Time: Yes Total Critical Care Time: 60 Attestation: I personally attest to this time spent taking care of the patient Discharge Plan Discharge Clinical Impression: Upper respiratory infection Patient Disposition: Home, Self-Care Instructions: Upper Respiratory Infection (ED) Prescriptions: New cyclobenzaprine 10 mg tablet 10 mg PO Q8H Qty: 10 RF: 0 azithromycin 250 mg tablet See Rx Instructions .ROUTE .COMPLEX Qty: 6 RF: 0 codeine-guaifenesin [Guaifenesin AC] 10-100 mg/5 mL liquid 5 ml PO Q6H PRN (Reason: cold symptoms) Qty: 120 RF: 0 albuterol sulfate 90 mcg/actuation HFA aerosol inhaler 1 inh inhalation QID PRN (Reason: shortness of breath or wheezing) Qty: 8.5 RF: 0 No Action prenat.vits,bethel,[id number] Tablet 1 tab PO DAILY RF: 0 levonorgestrel-ethinyl estrad 0.1-20 mg-mcg tablet 1 tab PO DAILY Qty: 84 RF: 4 Referrals: [facility] [Primary Care Provider] - 2 days Stand Alone Forms: Work/School Release Print Language: French
--- NOTE | 2021-01-17 11:07 | ECG_ITS ---
Test Reason : DYSPNEA Blood Pressure : / mmHG Vent. Rate : 107 BPM Atrial Rate : 107 BPM P-R Int : 134 ms QRS Dur : 080 ms QT Int : 324 ms P-R-T Axes : 043 027 009 degrees QTc Int : 432 ms Sinus tachycardia Otherwise normal ECG No previous ECGs available Referred By: Tova Escalona Electronically Signed By:LARA SOUTH
[2021-01-17 11:17] LABS: Influenza A PCR NEGATIVE (Negative); Influenza B PCR NEGATIVE (Negative); Resp Syncy Virus RNA Qual PCR NEGATIVE (Negative); SARS COV2 PCR INHOUSE NEGATIVE (Negative)
[2021-01-17 11:24] LABS: MANUAL DIFF FLAG NO
[2021-01-17 11:32] LABS: Prothrombin Time 11.8 SEC (9.9-13.0)
[2021-01-17 11:34] LABS: Basophils Absolute Auto 0.1 X10*3/uL (0.0-0.2); Basophils Percent Auto 0.6 % (0-2); Eosinophils Absolute Auto 0.8 X10*3/uL (0.0-0.4); Eosinophils Percent Auto 5.3 % (0-4); Hematocrit 44.7 % (37-47); Imm Gran Abs Auto 0.05 X10*3/uL (0.00-0.03); Imm Gran Pct Auto 0.3 % (0.0-0.4); Lymphocytes Percent Auto 6.6 % (20-40); Mean Corpuscular HGB Conc 33.6 g/dl (31.0-35.0); Mean Corpuscular Hemoglobin 29.9 pg (27.0-33.0); Mean Corpuscular Volume 89.2 fL (80-98); Monocytes Absolute Auto 0.8 X10*3/uL (0.1-1.2); Monocytes Percent Auto 5.1 % (2-11); Neutrophils Percent Auto 82.1 % (45-73); Platelet Count 269 X10*3/uL (160-400); Red Blood Count 5.01 X10*6/uL (4.20-5.50); Red Cell Distribution Width 13.3 % (11.0-16.0); White Blood Count 14.7 X10*3/uL (4.8-10.8)
[2021-01-17 11:35] LABS: D Dimer 657 NG/ML
[2021-01-17 11:40] LABS: Alanine Aminotransferase 14 U/L (0-31); Albumin Level 4.4 g/dL (3.5-5.0); Alkaline Phosphatase 109 U/L (39-117); Anion Gap 12 (12-20); Aspartate Amino Transferase 18 U/L (5-31); Bilirubin Total 0.5 mg/dL (0.0-1.0); Blood Urea Nitrogen 7 mg/dL (9-16); Calcium 9.7 mg/dL (8.4-10.2); Carbon Dioxide 23 mmol/L (22-29); Chloride 107 mmol/L (96-108); Creatinine Clr Calc Pharmacy 136.8; Estimated Glomerular Filt Rate > 60; Glucose Random 95 mg/dL (60-115); Magnesium 1.9 mg/dL (1.6-2.6); Potassium 4.1 mmol/L (3.3-5.1); Sodium 138 mmol/L (135-145); Total Protein 7.1 g/dL (6.5-8.0)
[2021-01-17 11:55] LABS: Appearance Urine CLEAR; Color Urine STRAW; Glucose Urine UA NEG (NEG); Leukocyte Esterase Urine NEG (NEG); Nitrite Urine NEG (NEG); PH 6.5 (5.0-8.0); Specific Gravity - Urine <= 1.005 (1.005-1.025); Urine Blood NEG (NEG); Urine Ketones NEG (NEG); Urine Protein NEG (NEG-TRACE)
[2021-01-17] MEDS: dexAMETHasone 2 MG TABLET 10 MG PO (12:13)
[2021-01-17] MEDS: Acetaminophen 325 MG TABLET 975 MG PO (12:13)
[2021-01-17 12:39] LABS: UPreg QC Valid YES; Urine Pregnancy NEGATIVE (NEGATIVE)
[2021-01-17 13:06] VITALS: BP 122/71; PULSE 94; RESP 19; O2SAT 99
[2021-01-17] MEDS: iohexoL 350 MG/ML 100 ML INFUS..BTL IV (13:46)
[2021-01-17 14:31] LABS: Adenovirus PCR Not Detected (Not Detect.); Bordetella parapertussis PCR Not Detected (Not Detect.); Bordetella pertussis PCR Not Detected (Not Detect.); Chlamydia pneumoniae PCR Not Detected (Not Detect.); Coronavirus 229E PCR Not Detected (Not Detect.); Coronavirus HKU1 PCR Not Detected (Not Detect.); Coronavirus NL63 PCR Not Detected (Not Detect.); Coronavirus OC43 PCR Not Detected (Not Detect.); Human metapneumovirus PCR Not Detected (Not Detect.); Influenza A PCR Not Detected (Not Detect.); Influenza B PCR Not Detected (Not Detect.); Mycoplasma pneumoniae PCR Not Detected (Not Detect.); Parainfluenza 1 PCR Not Detected (Not Detect.); Parainfluenza 2 PCR Not Detected (Not Detect.); Parainfluenza 3 PCR Not Detected (Not Detect.); Parainfluenza 4 PCR Not Detected (Not Detect.); RSV PCR Not Detected (Not Detect.); SARS-CoV-2 PCR Not Detected (Not Detect.)
[2021-01-18 07:09] LABS: Rhino/Enterovirus PCR Detected (Not Detect.)
== END 2021-01-17 15:30 | disposition home or self-care (01) ==
PROVIDERS: Physician Assistant Medical; Emergency Provider Emergency Medicine
DX: J06.9 Acute upper respiratory infection, unspecified (principal); Z20.822 Contact with and (suspected) exposure to COVID-19; R00.0 Tachycardia, unspecified; R50.9 Fever, unspecified; R06.02 Shortness of breath; J02.9 Acute pharyngitis, unspecified
CPT/HCPCS: 0241U; 36415; 71045; 71275; 80053; 81003; 81025; 83735; 85025; 85379; 85610; 87633; 87651; 93005; 99284; 99291; J8540; Q9967

== ENCOUNTER 2021-02-10 13:12 | Outpatient (REF) | payer MEDICAID, SELFPAY | END 2021-02-10 13:13 | disposition home or self-care (01) | LOC: HO.LAB 13:12 | PROVIDERS: Visit Provider Internal Medicine | DX: Z20.822 Contact with and (suspected) exposure to COVID-19 (principal) | CPT/HCPCS: C9803; U0003; U0005 ==

== ENCOUNTER 2021-03-11 07:54 | Emergency (ER) | payer MEDICAID, SELFPAY ==
[2021-03-11 08:10] VITALS: BP 142/76; PULSE 78; RESP 20; TEMP 36.6; O2SAT 98; BMI 34.7
--- NOTE | 2021-03-11 09:10 | ED.GENADULT ---
HPI - General Adult General Chief complaint: General Medical Stated complaint: cough, sore throat, runny nose Time Seen by Provider: 03/11/21 08:55 Source: patient and family (Spouse) Mode of arrival: ambulatory Limitations: no limitations History of Present Illness HPI narrative: 20-year-old female came in for evaluation of runny nose, sore throat, dry coughing. Symptoms started 2 days ago, for months baby son has similar symptoms, no other sick, no recent travel, no fever, no chills no chest pain, no abdominal pain. No recent exposure to sick contacts. Related Data Home Medications Medication Instructions Recorded Confirmed prenat.vits,bethel,[id number] 1 tab PO DAILY 04/29/20 10/03/20 Previous Rx's Medication Instructions Recorded levonorgestrel-ethinyl estradiol 1 tab PO DAILY #84 tab 11/28/20 0.1 mg-20 mcg tablet albuterol sulfate 90 mcg/actuation 1 inh INHALATION QID PRN #8.5 g 01/17/21 aerosol inhaler azithromycin 250 mg tablet See Rx Instructions .ROUTE 01/17/21 .COMPLEX #6 tab codeine 10 mg-guaifenesin 100 mg/5 5 ml PO Q6H PRN #120 ml 01/17/21 mL oral liquid (Guaifenesin AC) cyclobenzaprine 10 mg tablet 10 mg PO Q8H #10 tab 01/17/21 Allergies Allergy/AdvReac Type Severity Reaction Status Date / Time No Known Allergies Allergy Verified 11/28/20 14:34 [No Known Allergies*] Review of Systems Review of Systems: All other systems are reviewed and are negative Constitutional: Reports as per HPI and Reports no additional constitutional complaints Eyes: Reports as per HPI and Reports no additional eye complaints Reports system reviewed and no additional complaints, except as documented Cardiovascular: Reports as per HPI and Reports no additional cardiovascular complaints Respiratory: Reports as per HPI and Reports no additional respiratory complaints Gastrointestinal: Reports as per HPI and Reports no additional gastrointestinal complaints Genitourinary: Reports no additional female genitourinary complaints Musculoskeletal: Reports no additional musculoskeletal complaints Skin/Breast: Reports system reviewed and no additional complaints, except as docu Psychiatric: Reports no additional psychiatric complaints Endocrine: Reports no additional endocrine complaints Hematologic/Lymphatic: Reports no additional hematologic/lymphatic complaints Allergic/Immunologic: Reports no additional allergic/immunologic complaints Reports system reviewed and no additional complaints, except as documented and Reports Abnormal speech present [facility] Past Medical History Medical History No known health problems Family History Family History Mother No problems noted. Father No problems noted. Maternal Grandfather No problems noted. Maternal Grandmother Hx of diabetes mellitus Paternal Grandfather Hx of coronary artery disease Hx of diabetes mellitus Hx of primary hypertension Paternal Grandmother No problems noted. Sister No problems noted. Paternal Aunt No problems noted. Social History Social History Household Members: Significant Other Alcohol intake: never Advance Directives: No Advance Directives Information Provided: No Patient : No Current occupational status: employed Current occupational exposures/hazards: No Sexual orientation: Straight/Heterosexual Physical Exam Vital Signs: Vital Signs: Last Vital Signs Temp 97.8 F 03/11/21 08:10 Pulse 78 03/11/21 08:10 Resp 20 03/11/21 08:10 BP 142/76 H 03/11/21 08:10 Pulse Ox 98 03/11/21 08:10 Body Mass Index 34.7 Vital signs have been reviewed as appeared to be correct. Blood pressure normal. Heart rate normal. Respiration rate normal. Temperature normal. Oxygen saturation normal. Appearance: Alert. Oriented X3. No acute distress. Head: Normal external exam. Normocephalic. Atraumatic. No Glez signs noted. No raccoon eyes noted Eyes: PERRLA. EOMI. Conjunctiva and sclera normal. Eyelids normal. ENT: TM's Normal. Pharynx normal. Uvula midline. Moist mucous membranes. No trismus noted. No drooling noted. No muffled voice noted. Neck: Normal inspection. Neck supple. FROM. No adenopathy. Thyroid Normal. No meningeal signs. No neck mass noted. CVS: Normal heart rate and rhythm. Heart sound normal. No murmurs noted. Pulses normal throughout. Respiratory: No respiratory distress. Painless inspiration. Breath sounds normal. No wheezes/rales/rhonchi noted. Chest nontender. No accessory muscle usage noted or decreased air movement noted. Abdomen: Soft and nontender. Bowel sounds normal in all 4 quadrants. No distention noted. No organomegaly noted. No visible injury noted. Back: No CVA tenderness. Full range of motion noted. Skin: Skin warm and dry. Normal skin color. Normal skin turgor. No rashes/lesions/lacerations noted. Extremities: No lower extremity edema. Extremities exhibit normal range of motion. Extremities nontender. Neuro: Oriented X 3. Cranial nerve exam: II-XII are grossly intact No motor deficit. No sensory deficit. Reflexes normal. Course Course Course Narrative: Assessment and plan. 20-year-old female came in for upper respiratory symptoms, patient with viral upper respiratory infection. Reassure and discharge. Discharge Plan Discharge Clinical Impression: Viral infection Patient Disposition: Home, Self-Care Instructions: Viral Syndrome (ED) Prescriptions: No Action cyclobenzaprine 10 mg tablet 10 mg PO Q8H Qty: 10 RF: 0 azithromycin 250 mg tablet See Rx Instructions .ROUTE .COMPLEX Qty: 6 RF: 0 codeine-guaifenesin [Guaifenesin AC] 10-100 mg/5 mL liquid 5 ml PO Q6H PRN (Reason: cold symptoms) Qty: 120 RF: 0 albuterol sulfate 90 mcg/actuation HFA aerosol inhaler 1 inh inhalation QID PRN (Reason: shortness of breath or wheezing) Qty: 8.5 RF: 0 prenat.vits,bethel,[id number] Tablet 1 tab PO DAILY RF: 0 levonorgestrel-ethinyl estrad 0.1-20 mg-mcg tablet 1 tab PO DAILY Qty: 84 RF: 4 Referrals: [facility] [Primary Care Provider] - 2 days
[2021-03-11 09:44] LABS: IDNOW Serial# 9DD0AD1C; Strep A Nucleic Acid Negative (Negative)
[2021-03-11 10:11] LABS: Influenza A PCR NEGATIVE (Negative); Influenza B PCR NEGATIVE (Negative); Resp Syncy Virus RNA Qual PCR NEGATIVE (Negative); SARS COV2 PCR INHOUSE NEGATIVE (Negative)
== END 2021-03-11 10:52 | disposition home or self-care (01) ==
PROVIDERS: Emergency Provider Emergency Medicine
DX: B34.9 Viral infection, unspecified (principal); Z20.822 Contact with and (suspected) exposure to COVID-19
CPT/HCPCS: 0241U; 36415; 87651; 99283

== ENCOUNTER 2021-07-30 13:27 | Emergency (ER) | payer MEDICAID, SELFPAY ==
[2021-07-30 14:29] VITALS: BP 122/65; PULSE 65; RESP 18; TEMP 37; O2SAT 100; BMI 31.7
--- NOTE | 2021-07-30 14:44 | ED.FEMALEGU ---
HPI - Female Genitourinary General Chief complaint: Urogenital-Female Stated complaint: ?UTI Time Seen by Provider: 07/30/21 14:34 Source: patient Mode of arrival: ambulatory Limitations: no limitations History of Present Illness HPI Narrative: 21-year-old female here with reports of urinary urgency, frequency and burning for the last 1 week. Patient tells me she was tested for STDs on Tuesday of this week and was negative. She believe she may have a urinary tract infection and is requesting testing and treatment. Patient denies any flank pain, fever, vomiting. Related Data Home Medications Medication Instructions Recorded Confirmed prenat.vits,bethel,[id number] 1 tab PO DAILY 04/29/20 10/03/20 Previous Rx's Medication Instructions Recorded levonorgestrel-ethinyl estradiol 1 tab PO DAILY #84 tab 11/28/20 0.1 mg-20 mcg tablet albuterol sulfate 90 mcg/actuation 1 inh INHALATION QID PRN #8.5 g 01/17/21 aerosol inhaler azithromycin 250 mg tablet See Rx Instructions .ROUTE 01/17/21 .COMPLEX #6 tab codeine 10 mg-guaifenesin 100 mg/5 5 ml PO Q6H PRN #120 ml 01/17/21 mL oral liquid (Guaifenesin AC) cyclobenzaprine 10 mg tablet 10 mg PO Q8H #10 tab 01/17/21 doxycycline monohydrate 100 mg 100 mg PO BID #14 tab 07/30/21 tablet Allergies Allergy/AdvReac Type Severity Reaction Status Date / Time No Known Allergies Allergy Verified 11/28/20 14:34 [No Known Allergies*] Review of Systems Review of Systems: Yes all other systems are reviewed and are negative Constitutional: Constitutional: Reports no additional constitutional complaints, Denies body ache(s), Denies chills, Denies fever(s), Denies headache(s) and Denies weakness Eyes: Eyes: Reports no additional eye complaints and Denies change in vision ENT: Reports system reviewed and no additional complaints, except as documented, Denies dizziness, Denies headache(s), Denies nasal congestion, Denies nasal discharge and Denies neck pain Cardiovascular: Cardiovascular: Reports no additional cardiovascular complaints, Denies chest pain, Denies leg edema and Denies dyspnea Respiratory: Respiratory: Reports no additional respiratory complaints, Denies cough and Denies dyspnea Gastrointestinal: Gastrointestinal: Reports no additional gastrointestinal complaints, Denies abdominal pain, Denies diarrhea, Denies nausea and Denies vomiting Genitourinary: Genitourinary: Reports no additional female genitourinary complaints, Reports dysuria, Denies flank pain, Denies urinary incontinence, Reports urinary urgency and Denies vaginal discharge Comments: Urinary frequency Musculoskeletal: Musculoskeletal: Reports no additional musculoskeletal complaints, Denies back pain, Denies arthralgias, Denies joint swelling, Denies neck pain, Denies numbness and Denies tingling Integumentary/Breasts: Skin/Breast: Reports system reviewed and no additional complaints, except as docu and Denies rash Neurologic: Reports system reviewed and no additional complaints, except as documented, Denies Abnormal speech present, Denies dizziness, Denies headache(s), Denies numbness, Denies tingling and Denies weakness PMFSH Past Medical History Attestation statement: The following information was validated with the patient. Source: old records reviewed and nursing notes reviewed Medical History No known health problems Family History Family History Mother No problems noted. Father No problems noted. Maternal Grandfather No problems noted. Maternal Grandmother Hx of diabetes mellitus Paternal Grandfather Hx of coronary artery disease Hx of diabetes mellitus Hx of primary hypertension Paternal Grandmother No problems noted. Sister No problems noted. Paternal Aunt No problems noted. Social History Social History Household Members: Significant Other Alcohol intake: never Advance Directives: No Advance Directives Information Provided: Yes Current occupational status: employed Current occupational exposures/hazards: No Sexual orientation: Straight/Heterosexual Physical Exam Vital Signs: Vital Signs: Last Vital Signs Temp 98.6 F 07/30/21 14:29 Pulse 64 07/30/21 17:01 Resp 18 07/30/21 17:01 BP 120/66 07/30/21 17:01 Pulse Ox 100 07/30/21 17:01 BMI result Body Mass Index 31.7 Const: General: cooperative, healthy appearing, comfortable and no acute distress Orientation/consciousness: patient oriented x3 Limitations: no limitations HEENT: Head: Yes normal to inspection Ears: hearing grossly normal bilaterally General nose exam: Normal external nose present Face and sinus: Yes normal facial exam Mouth: Normal oral and palatal mucosa present Throat: Yes posterior oropharynx normal Eyes: General: appearance normal, both eyes and all related structures Pupils: Equal, round and reactive pupils present Neck: Neck: Yes normal visual inspection Chest: Chest palpation & inspection: normal inspection of the chest Resp: Effort & Inspection: normal respiratory effort Auscultation: clear to auscultation bilaterally Cardio: Rate: regular rate Rhythm: regular rhythm Peripheral pulses: Peripheral pulses 2+ throughout GI: Inspection: Yes normal to inspection Palpation (GI): Soft to palpation and nontender Auscultation: normal bowel sounds : General: Yes no CVA tenderness Back/Spine/Pelvis: Back: no CVA tenderness Thoracic/Lumbar Spine: thoracic and lumbar spine normal to inspection Skin: General skin exam: no rashes or lesions noted Neuro: General: patient oriented x3, no focal motor deficits and normal sensation to monofilament Cranial nerves: Yes Equal, round and reactive pupils present Cognition (Neuro): normal cognition Speech: No Abnormal speech present Gait exam (Neuro): Normal gait present Motor exam (neuro): 5/5 motor strength present throughout Extrem: General: Yes normal to inspection Course Course Course Narrative: 21-year-old female here with complaints of urinary frequency, urgency and dysuria for the last 1 week. Patient was tested for STDs on Tuesday and was negative. Will send UA, urine and reassess [id number] negative for UTI. Will send STI testing Patient will be treated prophylactically with ceftriaxone 500 mg IM and will be sent home with doxycycline 100 mg b.i.d. for 7 days. Reviewed worrisome signs and symptoms of when to return to the emergency department. Comfortable discharge home. MDM - Female Genitourinary Medical Records Attestation: I reviewed the patient's medical records. Lab Data Attestation: I reviewed the patient's lab results. Labs: Lab Results 07/30/21 07/30/21 Range/Units 15:07 15:08 Urine Color YELLOW Urine Appearance CLEAR Urine pH 6.5 (5.0-8.0) Ur Specific [place] 1.010 (1.005-1.025) Urine Protein NEG (NEG-TRACE) MG/DL Urine Glucose (UA) NEG (NEG) MG/DL Urine Ketones NEG (NEG) MG/DL Urine Blood 3+ H (NEG) Urine Nitrite NEG (NEG) Ur Leukocyte Esterase NEG (NEG) Urine RBC 1-4 (0) /HPF Urine WBC 0 (0-4) /HPF Ur Squamous Epith Cells 1+ /LPF Urine Bacteria 1+ /LPF Urine Test NEGATIVE (NEGATIVE) Discharge Plan Discharge Clinical Impression: Concern about STD in female without diagnosis Patient Disposition: Home, Self-Care Instructions: Sexually Transmitted Diseases (ED) Additional Instructions: Your urine did not show any signs of a urinary tract infection We sent testing for STDs we will not have these results for 1-2 days. We will call you if you are positive. We are treating you prophylactically with antibiotics Prescriptions: New doxycycline monohydrate 100 mg tablet 100 mg PO BID Qty: 14 0RF No Action cyclobenzaprine 10 mg tablet 10 mg PO Q8H Qty: 10 0RF azithromycin 250 mg tablet See Rx Instructions .ROUTE .COMPLEX Qty: 6 0RF Rx Instructions: take 500 mg today (day 1), then 250 mg for 4 days (days 2-5) codeine-guaifenesin [Guaifenesin AC] 10-100 mg/5 mL liquid 5 ml PO Q6H PRN (Reason: cold symptoms) Qty: 120 0RF albuterol sulfate 90 mcg/actuation HFA aerosol inhaler 1 inh inhalation QID PRN (Reason: shortness of breath or wheezing) Qty: 8.5 0RF prenat.vits,bethel,[id number] Tablet 1 tab PO DAILY 0RF levonorgestrel-ethinyl estrad 0.1-20 mg-mcg tablet 1 tab PO DAILY Qty: 84 4RF Referrals: [facility] [Primary Care Provider] - 1 week
[2021-07-30 15:20] LABS: Appearance Urine CLEAR; Color Urine YELLOW; Glucose Urine UA NEG (NEG); Leukocyte Esterase Urine NEG (NEG); Nitrite Urine NEG (NEG); PH 6.5 (5.0-8.0); UACC Culture Trigger NO; Urine Blood 3+ (NEG); Urine Ketones NEG (NEG); Urine Protein NEG (NEG-TRACE)
[2021-07-30 15:22] LABS: UPreg QC Valid YES; Urine Pregnancy NEGATIVE (NEGATIVE)
[2021-07-30 15:33] LABS: Bacteria Urine 1+ /LPF; Squamous Epithelial Cell Urine 1+ /LPF; WBC Urine 0 /HPF (0-4)
[2021-07-30 17:01] VITALS: BP 120/66; PULSE 64; RESP 18; O2SAT 100
[2021-07-30] MEDS: cefTRIAXone sodium 500 MG, Lidocaine HCl 1 % MPF 1 ML IM (17:11)
[2021-07-30 21:42] LABS: CT PCR NOT DETECTED (Not Detect.); NG PCR NOT DETECTED (Not Detect.)
[2021-07-31 09:02] LABS: BV Int Neg Control Negative (Negative); BV Int Pos Control Positive (Positive)
== END 2021-07-30 17:16 | disposition home or self-care (01) ==
PROVIDERS: Nurse Practitioner Family; Emergency Provider Emergency Medicine
DX: Z20.2 Contact with and (suspected) exposure to infections with a predominantly sexual mode of transmission (principal)
CPT/HCPCS: 81001; 81025; 87480; 87491; 87510; 87591; 87660; 96372; 99284; J0696

== ENCOUNTER 2021-08-26 15:32 | Emergency (ER) | payer MEDICAID, SELFPAY ==
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
[2021-08-26 16:17] VITALS: BP 104/61; PULSE 76; RESP 19; TEMP 36.1; O2SAT 97; BMI 30.4
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
== END 2021-08-26 18:04 | disposition home or self-care (01) ==
PROVIDERS: Emergency Provider Emergency Medicine
DX: S09.90XA Unspecified injury of head, initial encounter (principal); S29.011A Strain of muscle and tendon of front wall of thorax, initial encounter; S02.5XXA Fracture of tooth (traumatic), initial encounter for closed fracture; T14.8XXA Other injury of unspecified body region, initial encounter; S66.919A Strain of unspecified muscle, fascia and tendon at wrist and hand level, unspecified hand, initial encounter; Y04.2XXA Assault by strike against or bumped into by another person, initial encounter; Y93.9 Activity, unspecified; Y92.009 Unspecified place in unspecified non-institutional (private) residence as the place of occurrence of the external cause; Y99.9 Unspecified external cause status
CPT/HCPCS: 70450; 70486; 71111; 72125; 73060; 73130; 99283; 99291

== ENCOUNTER 2022-01-02 12:45 | Emergency (ER) | payer MEDICAID, SELFPAY ==
--- NOTE | ~2022-01-02 | XR_ITS ---
EXAMINATION: XR CHEST CLINICAL INFORMATION: Cough COMPARISON: August 26, 2021 TECHNIQUE: Frontal view of the chest was obtained. FINDINGS: No significant abnormality is noted involving the heart, lungs, mediastinum, bony thorax or soft tissues. XR/XR chest 1V IMPRESSION: No acute parenchymal disease.
[2022-01-02 12:47] VITALS: BP 117/69; PULSE 102; RESP 17; TEMP 35.8; O2SAT 97; BMI 27.0
[2022-01-02 13:47] LABS: COVID-19 Test Negative (Negative); IDNOW Serial# 16C4AD1C; Influenza A Negative (Negative); Influenza B2 Negative (Negative)
--- NOTE | 2022-01-02 13:53 | ED.URI ---
HPI - URI/Sore Throat General Chief Complaint: Upper Respiratory Symptoms Stated Complaint: Cough Time Seen by Provider: 01/02/22 13:16 Source: patient Mode of arrival: ambulatory Limitations: no limitations History of Present Illness HPI Narrative: 21-year-old female who denies any medical history presenting to the ER with complaints of nasal congestion/rhinorrhea, itchy throat, cough with wheezing and shortness of breath for the past week worse today. Reports that her daughter has similar symptoms. They deny any other sick contacts. She denies any measured fevers, chills, dizziness, headaches, neck pain/stiffness, chest pain, dyspnea on exertion, orthopnea, palpitations, paresthesias, nausea/vomiting/diarrhea constipation, black or bloody stools, abdominal pain, back pain, flank pain, dysuria, hematuria, abnormal vaginal discharge, lower extremity edema or calf tenderness, recent travel or any other symptoms complaints or concerns at this time. MD elicited complaint: cough, sore throat, rhinorrhea and nasal congestion Onset (ago): week(s) (1) Consistency: constant and progressively worsening Severity: moderate Description of mucous: clear, watery and yellow Able to tolerate fluids by mouth: Yes Exacerbating factors: swallowing and deep breaths Relieving factors: nothing Context: sick contacts (Daughter with similar since) Associated symptoms: myalgias, rhinorrhea, nasal congestion, sore throat, cough and shortness of breath Treatments prior to arrival: none Related Data Home Medications Medication Instructions Recorded Confirmed prenat.vits,bethel,[id number] 1 tab PO DAILY 04/29/20 10/03/20 Previous Rx's Medication Instructions Recorded levonorgestrel-ethinyl estradiol 1 tab PO DAILY #84 tabs 11/28/20 0.1 mg-20 mcg tablet albuterol sulfate 90 mcg/actuation 1 inh inhalation QID PRN shortness 01/17/21 aerosol inhaler of breath or wheezing #8.5 grams azithromycin 250 mg tablet See Rx Instructions PO .COMPLEX #6 01/17/21 tabs codeine 10 mg-guaifenesin 100 mg/5 5 ml PO Q6H PRN cold symptoms #120 01/17/21 mL oral liquid (Guaifenesin AC) mL cyclobenzaprine 10 mg tablet 10 mg PO Q8H Muscle spasm #10 tabs 01/17/21 doxycycline monohydrate 100 mg 100 mg PO BID #14 tabs 07/30/21 tablet metronidazole 500 mg tablet 500 mg PO BID 7 days #14 tabs 08/04/21 acetaminophen 500 mg tablet 1,000 mg PO QID PRN fever or pain 08/26/21 (Tylenol Extra Strength) #14 tabs cyclobenzaprine 10 mg tablet 10 mg PO Q8H PRN Muscle spasm #14 08/26/21 tabs albuterol sulfate 90 mcg/actuation 1 inh inhalation QID PRN shortness 01/02/22 aerosol inhaler of breath or wheezing #8.5 grams amoxicillin 875 mg-potassium 1 tab PO BID 7 days #14 tabs 01/02/22 clavulanate 125 mg tablet guaifenesin 200 mg/5 mL oral liquid 200 mg (5 mL) PO Q4H PRN 01/02/22 congestion #118 mL prednisone 20 mg tablet 40 mg PO DAILY Bronchospasm 5 days 01/02/22 #10 tabs Allergies Allergy/AdvReac Type Severity Reaction Status Date / Time No Known Allergies Allergy Verified 08/26/21 16:36 [No Known Allergies*] Review of Systems Review of Systems: Constitutional : No Weight loss, No Fever, No Chills, No Night Sweats, + Fatigue, + Malaise ENT/Mouth : No Hearing loss, No Ear Pain, + Nasal Congestion, No Sinus Pain, No Hoarseness, + sore throat, + Rhinorrhea, No Swallowing Difficulty Eyes: No Eye Pain, No Swelling, No Redness, No Foreign Body, No Discharge, No Vision Changes Cardiovascular : No Chest Pain, + SOB, No Dyspnea on Exertion, No Orthopnea, No Edema, No Palpitations Respiratory : + Cough, No Sputum, + Wheezing, No Smoke Exposure, + Dyspnea Gastrointestinal : No Nausea, No Vomiting, No Diarrhea, No Constipation, No abdominal Pain, No Hematochezia, No Melena Genitourinary : no irregular bleeding, No Dysuria, No Urinary Frequency, No Hematuria, No Urinary Incontinence, No Urgency, No Flank Pain, No Urinary Flow Changes, No Hesitancy Musculoskeletal : No joint pain, + Myalgias, No Joint Swelling Skin : No Skin Lesions, No rash Neuro : No Weakness, No Numbness, No Paresthesias, No Loss of Consciousness, No Dizziness, No Headache Psych : No Anxiety/Panic, No Depression, No SI/HI/AH/VH, No Social Issues, Heme/Lymph: No Bruising, No Bleeding,No Lymphadenopathy Endocrine : No Polyuria, No Polydipsia, No Temperature Intolerance Yes all other systems are reviewed and are negative [facility] Past Medical History Attestation statement: The following information was validated with the patient. Source: old records reviewed and nursing notes reviewed Medical History No known health problems Family History Family History Mother No problems noted. Father No problems noted. Maternal Grandfather No problems noted. Maternal Grandmother Hx of diabetes mellitus Paternal Grandfather Hx of coronary artery disease Hx of diabetes mellitus Hx of primary hypertension Paternal Grandmother No problems noted. Sister No problems noted. Paternal Aunt No problems noted. Social History Social History Household Members: Significant Other Alcohol intake: never Advance Directives: Yes Advance Directives Information Provided: Yes Advance Directives on File: No Current occupational status: employed Current occupational exposures/hazards: No Sexual orientation: Straight/Heterosexual Physical Exam Vital Signs: Vital Signs: Last Vital Signs Temp 96.5 F L 01/02/22 12:47 Pulse 102 H 01/02/22 12:47 Resp 17 01/02/22 12:47 BP 117/69 01/02/22 12:47 Pulse Ox 97 01/02/22 12:47 O2 Del Method 01/02/22 12:47 BMI result Body Mass Index 27.0 vital signs have been reviewed as normal and appeared to be correct. Blood pressure normal. Heart rate 102. Respiration rate normal. Temperature 96.5. Oxygen saturation normal. Appearance: Alert. Oriented X3. No acute distress. Head: Normal external exam. Normocephalic. Atraumatic. Eyes: PERRLA. EOMI. Conjunctiva and sclera normal. Eyelids normal. ENT: EAC normal. TM's Normal. Posterior pharynx/tonsils mildly erythematous although no exudate is noted. Soft and hard palate within normal limits. The rest of the pharynx is within normal limits. Uvula midline. Moist mucous membranes. No lesions/ulcerations or masses noted on the tongue. Normal voice. No trismus noted. No drooling noted. No muffled voice noted. Patient tolerating secretions well. Neck: Normal inspection. Neck supple. FROM. No adenopathy. Thyroid Normal. No tracheal deviation noted. No crepitus is noted. No meningeal signs. No neck mass noted. No signs of trauma noted. CVS: Normal heart rate and rhythm. Heart sound normal. Pulses normal throughout. No murmurs/rales/gallops. Respiratory: No respiratory distress. Painless inspiration. Breath sounds normal. No wheezes/rales/rhonchi noted. Chest nontender. No crepitus is noted. No accessory muscle usage noted or decreased air movement noted. No signs of trauma. Abdomen: Soft and nontender. Nondistended. No guarding. No rigidity. Bowel sounds normal in all 4 quadrants. No distention noted. No organomegaly noted. Back: No CVA tenderness. Full range of motion noted. Nontender. Skin: Skin warm and dry. Normal skin color. Normal skin turgor. No rashes/lesions/lacerations noted. Extremities: No lower extremity edema. No calf tenderness is noted. Extremities exhibit normal range of motion and nontender. Neuro: Oriented X 3. No motor deficit. No sensory deficit. Reflexes normal. Normal steady gait. No focal neuro deficits noted. CN's II-XII intact bilaterally? Vascular: + radial pulses/+ 2 distal pedal pulses/+2 dorsalis pedis b/l. Normal cap refill. No cyanosis noted to upper extremity nails and lower extremity toes nails. Course Course Course Narrative: 13pm - 21-year-old female who denies any medical history presenting to the ER with complaints of nasal congestion/rhinorrhea, itchy throat, cough with wheezing and shortness of breath for the past week worse today. Reports that her daughter has similar symptoms. Plan: Will obtain COVID/strep swab and a chest x-ray. Provide Robitussin 10 mL without codeine, 60 mg of prednisone and albuterol inhaler/2 puffs a re-evaluate. Reevaluation(s) Reevaluation #1: - chest x-ray negative. Patient negative for COVID. Patient negative for influenza. Patient negative for strep. Patient URI/upper respiratory infection. Will DC home with symptomatic treatment instructions return if any new or worsening symptoms follow up with primary care provider. Patient understands agrees with this plan. Time: 14:22 MDM - URI/Sore Throat Medical Records Attestation: I reviewed the patient's medical records. Lab Data Attestation: I reviewed the patient's lab results. Labs: Lab Results 01/02/22 01/02/22 Range/Units 12:58 12:58 COVID-19 (EDWIGE) Negative (Negative) COVID-19 Clin Com See Note Influenza Type A ([facility]ONNA) Negative (Negative) Influenza Type B ([facility]ADONNA) Negative (Negative) Influenza A & B Note See Note Imaging Data Chest x-ray: Attestation: I personally reviewed and interpreted this imaging study as follows: Radiologist's impression: FINDINGS: No significant abnormality is noted involving the heart, lungs, mediastinum, bony thorax or soft tissues. XR/XR chest 1V IMPRESSION: No acute parenchymal disease. Discharge Plan Discharge Clinical Impression: Upper respiratory infection Patient Disposition: Home, Self-Care Instructions: Upper Respiratory Infection (ED) Prescriptions: New amoxicillin-pot clavulanate 875-125 mg tablet 1 tab PO BID 7 Days Qty: 14 0RF guaifenesin 200 mg/5 mL liquid 200 mg PO Q4H PRN (Reason: congestion) Qty: 118 0RF prednisone 20 mg tablet 40 mg PO DAILY 5 Days Qty: 10 0RF albuterol sulfate 90 mcg/actuation HFA aerosol inhaler 1 inh inhalation QID PRN (Reason: shortness of breath or wheezing) Qty: 8.5 0RF No Action cyclobenzaprine 10 mg tablet 10 mg PO Q8H Qty: 10 0RF azithromycin 250 mg tablet See Rx Instructions .ROUTE .COMPLEX Qty: 6 0RF Rx Instructions: take 500 mg today (day 1), then 250 mg for 4 days (days 2-5) codeine-guaifenesin [Guaifenesin AC] 10-100 mg/5 mL liquid 5 ml PO Q6H PRN (Reason: cold symptoms) Qty: 120 0RF albuterol sulfate 90 mcg/actuation HFA aerosol inhaler 1 inh inhalation QID PRN (Reason: shortness of breath or wheezing) Qty: 8.5 0RF doxycycline monohydrate 100 mg tablet 100 mg PO BID Qty: 14 0RF metronidazole 500 mg tablet 500 mg PO BID 7 Days Qty: 14 0RF acetaminophen [Tylenol Extra Strength] 500 mg tablet 1,000 mg PO QID PRN (Reason: fever or pain) Qty: 14 0RF cyclobenzaprine 10 mg tablet 10 mg PO Q8H PRN (Reason: Muscle spasm) Qty: 14 0RF prenat.vits,bethel,[id number] Tablet 1 tab PO DAILY levonorgestrel-ethinyl estrad 0.1-20 mg-mcg tablet 1 tab PO DAILY Qty: 84 4RF Referrals: [facility] [Primary Care Provider] - 2 days Stand Alone Forms: Work/School Release
[2022-01-02] MEDS: guaiFENesin 200 MG/10 ML 10 ML LIQUID PO (14:05)
[2022-01-02] MEDS: predniSONE 20 MG TABLET 60 MG PO (14:05)
[2022-01-02 14:23] LABS: IDNOW Serial# 08D9AD1C; Strep A Nucleic Acid Negative (Negative)
[2022-01-02] MEDS: Albuterol Sulfate 90 MCG 8 GM INHALER 2 PUFF INHALE (14:27)
[2022-01-02 14:29] VITALS: PULSE 99; RESP 16; O2SAT 80
== END 2022-01-02 14:45 | disposition home or self-care (01) ==
PROVIDERS: Physician Assistant Medical; Emergency Provider Emergency Medicine
DX: J06.9 Acute upper respiratory infection, unspecified (principal); Z20.822 Contact with and (suspected) exposure to COVID-19; J02.9 Acute pharyngitis, unspecified; R06.02 Shortness of breath
CPT/HCPCS: 36415; 71045; 87502; 87635; 87651; 94640; 99283; 99284

== ENCOUNTER 2022-02-23 12:54 | Emergency (ER) | payer MEDICAID, SELFPAY ==
[2022-02-23 13:06] VITALS: BP 106/65; PULSE 87; RESP 19; TEMP 36.6; O2SAT 98; BMI 27.3
--- NOTE | 2022-02-23 15:42 | ED_ITS ---
HPI - Eye Problem General Chief complaint: Eye Problems Stated complaint: L eye swollen Time Seen by Provider: 02/23/22 15:09 Source: patient Mode of arrival: ambulatory Limitations: no limitations History of Present Illness HPI Narrative: 21-year-old female who presents emergency department for evaluation of left eye swelling rhinorrhea and cough. Patient states that she has been sick since 02/19/2022 (5 days prior to evaluation). She states that her symptoms started with a runny nose and a nonproductive cough. She then developed swelling of her left eye. She states that yesterday her left eye was swollen shut and there was a crusty discharge on her eye lasts is. She states she continues to have swelling of her left upper eyelid with mild, pressure-like pain. She denied fever, chills, blurred vision or change in her vision. She states she occasionally gets short of breath and was told that she might have asthma but her PCP does not concur with this diagnosis. The patient does not wear contact lenses. Her two children are here in the emergency department. One child has chickenpox and RSV. The second child has RSV. chief complaint: eye redness Onset (ago): day(s) (4) Onset description: gradual Duration: constant Location: left eye Eye Symptoms: redness and pain Place: home Mechanism: none Severity: mild If Pain, Quality: burning Associated symptoms: cough, rhinorrhea and shortness of breath Treatments Prior to Arrival: none Related Data Home Medications Medication Instructions Recorded Confirmed prenat.vits,bethel,[id number] 1 tab PO DAILY 04/29/20 10/03/20 Previous Rx's Medication Instructions Recorded levonorgestrel-ethinyl estradiol 1 tab PO DAILY #84 tabs 11/28/20 0.1 mg-20 mcg tablet albuterol sulfate 90 mcg/actuation 1 inh inhalation QID PRN shortness 01/17/21 aerosol inhaler of breath or wheezing #8.5 grams azithromycin 250 mg tablet See Rx Instructions PO .COMPLEX #6 01/17/21 tabs codeine 10 mg-guaifenesin 100 mg/5 5 ml PO Q6H PRN cold symptoms #120 01/17/21 mL oral liquid (Guaifenesin AC) mL cyclobenzaprine 10 mg tablet 10 mg PO Q8H Muscle spasm #10 tabs 01/17/21 doxycycline monohydrate 100 mg 100 mg PO BID #14 tabs 07/30/21 tablet metronidazole 500 mg tablet 500 mg PO BID 7 days #14 tabs 08/04/21 acetaminophen 500 mg tablet 1,000 mg PO QID PRN fever or pain 08/26/21 (Tylenol Extra Strength) #14 tabs cyclobenzaprine 10 mg tablet 10 mg PO Q8H PRN Muscle spasm #14 08/26/21 tabs albuterol sulfate 90 mcg/actuation 1 inh inhalation QID PRN shortness 01/02/22 aerosol inhaler of breath or wheezing #8.5 grams amoxicillin 875 mg-potassium 1 tab PO BID 7 days #14 tabs 01/02/22 clavulanate 125 mg tablet guaifenesin 200 mg/5 mL oral liquid 200 mg (5 mL) PO Q4H PRN 01/02/22 congestion #118 mL prednisone 20 mg tablet 40 mg PO DAILY Bronchospasm 5 days 01/02/22 #10 tabs erythromycin 5 mg/gram (0.5 %) eye 0.5 inch ophthalmic (eye) TID 7 02/23/22 ointment days #3.5 grams Allergies Allergy/AdvReac Type Severity Reaction Status Date / Time No Known Allergies Allergy Verified 08/26/21 16:36 [No Known Allergies*] Review of Systems Review of Systems: Yes all other systems are reviewed and are negative [facility] Past Medical History [facility] Narrative: Past medical history: None. Past surgical history: None. Social history: She denies tobacco use. She occasionally drinks alcohol. She smokes marijuana daily. Medical History No known health problems Family History Family History Mother No problems noted. Father No problems noted. Maternal Grandfather No problems noted. Maternal Grandmother Hx of diabetes mellitus Paternal Grandfather Hx of coronary artery disease Hx of diabetes mellitus Hx of primary hypertension Paternal Grandmother No problems noted. Sister No problems noted. Paternal Aunt No problems noted. Social History Social History Household Members: Significant Other Alcohol intake: never Advance Directives: No Advance Directives Information Provided: No Current occupational status: employed Current occupational exposures/hazards: No Sexual orientation: Straight/Heterosexual Physical Exam Vital Signs: Vital Signs: Last Vital Signs Temp 98 F 02/23/22 13:06 Pulse 87 02/23/22 13:06 Resp 19 02/23/22 13:06 BP 106/65 02/23/22 13:06 Pulse Ox 98 02/23/22 13:06 O2 Del Method 02/23/22 13:06 BMI result Body Mass Index 27.3 Const: General: cooperative and no acute distress Orientation/consciousness: oriented to person and oriented to place Limitations: no limitations HEENT: Head: Yes normal to inspection, Yes normocephalic and Yes atraumatic Ears: external ears normal General nose exam: Normal external nose present Face and sinus: Yes normal facial exam Mouth: Normal oral and palatal mucosa present Throat: Yes posterior oropharynx normal Eyes: Alignment and Position: alignment normal Periorbital: periorbital findings normal Eyelids: Yes eyelid abnormality (Symmetric swelling upper lid, yellow crust noted on eyelashes) Conjunctivae: conjunctival abnormal left conjunctival injection Sclerae: sclerae normal Pupils: Equal, round and reactive pupils present Neck: Neck: Yes normal visual inspection, Yes no lymphadenopathy, Yes trachea midline and Yes supple Chest: Chest palpation & inspection: normal inspection of the chest and normal palpation of entire chest wall Resp: Effort & Inspection: normal respiratory effort and able to speak in complete sentences Auscultation: clear to auscultation bilaterally Cardio: Rate: regular rate Rhythm: regular rhythm Heart sounds: S1 normal heart sound present, S2 normal heart sound present and no murmurs GI: Inspection: Yes normal to inspection Palpation (GI): Soft to palpation, nontender and no guarding Auscultation: normal bowel sounds : General: Yes no CVA tenderness Back/Spine/Pelvis: Back: no CVA tenderness Skin: General skin exam: no rashes or lesions noted Neuro: General: oriented to person and oriented to place Cranial nerves: Yes CN's II-XII intact bilaterally and Yes Equal, round and reactive pupils present Cognition (Neuro): normal cognition Extrem: General: Yes normal to inspection Psych: Appearance: grossly normal Speech and movement: Normal speech and movement present Affect: normal affect Attitude: cooperative Course Course Course Narrative: 21-year-old female who presents emergency department for evaluation of rhinorrhea, cough and swelling over left upper eyelid with crusting of the left upper eyelash time 2-3 days. The patient's 2 children are here one with RSV and the 2nd with RSV and chickenpox. Patient's physical examination is consistent with left conjunctivitis. I did prescribe erythromycin ointment for the patient. She was given printed and verbal instructions and discharged home. Discharge Plan Discharge Clinical Impression: Conjunctivitis Qualifiers: Conjunctivitis type: acute Acute conjunctivitis type: unspecified Laterality: left Qualified Code(s): H10.32 - Unspecified acute conjunctivitis, left eye Patient Disposition: Home, Self-Care Instructions: Conjunctivitis (ED) Additional Instructions: You most likely have a viral infection causing your runny nose and cough, especially since both her children have RSV.. You do have an infection of your eyelid and the the white part of your eye. Apply asmall amount of baby shampoo to a small amount of warm water. Use a Q-tip to clean both your upper and lower eyelashes. Then apply the erythromycin to the upper and lower eyelashes and blink to get the erythromycin in your eye as well Then apply a warm washcloth for 15 minutes. Repeat this process 3 times a day for 1 week Follow-up with your doctor in 2 days. Please return to the emergency department if your symptoms get worse or if you develop any symptoms that are concerning to you. Prescriptions: New erythromycin 5 mg/gram (0.5 %) ointment 0.5 inch ophthalmic (eye) TID 7 Days Qty: 3.5 0RF Rx Instructions: Left eye No Action cyclobenzaprine 10 mg tablet 10 mg PO Q8H Qty: 10 0RF azithromycin 250 mg tablet See Rx Instructions .ROUTE .COMPLEX Qty: 6 0RF Rx Instructions: take 500 mg today (day 1), then 250 mg for 4 days (days 2-5) codeine-guaifenesin [Guaifenesin AC] 10-100 mg/5 mL liquid 5 ml PO Q6H PRN (Reason: cold symptoms) Qty: 120 0RF albuterol sulfate 90 mcg/actuation HFA aerosol inhaler 1 inh inhalation QID PRN (Reason: shortness of breath or wheezing) Qty: 8.5 0RF amoxicillin-pot clavulanate 875-125 mg tablet 1 tab PO BID 7 Days Qty: 14 0RF guaifenesin 200 mg/5 mL liquid 200 mg PO Q4H PRN (Reason: congestion) Qty: 118 0RF prednisone 20 mg tablet 40 mg PO DAILY 5 Days Qty: 10 0RF albuterol sulfate 90 mcg/actuation HFA aerosol inhaler 1 inh inhalation QID PRN (Reason: shortness of breath or wheezing) Qty: 8.5 0RF doxycycline monohydrate 100 mg tablet 100 mg PO BID Qty: 14 0RF metronidazole 500 mg tablet 500 mg PO BID 7 Days Qty: 14 0RF acetaminophen [Tylenol Extra Strength] 500 mg tablet 1,000 mg PO QID PRN (Reason: fever or pain) Qty: 14 0RF cyclobenzaprine 10 mg tablet 10 mg PO Q8H PRN (Reason: Muscle spasm) Qty: 14 0RF prenat.vits,bethel,[id number] Tablet 1 tab PO DAILY levonorgestrel-ethinyl estrad 0.1-20 mg-mcg tablet 1 tab PO DAILY Qty: 84 4RF
== END 2022-02-23 16:21 | disposition home or self-care (01) ==
PROVIDERS: Emergency Provider Emergency Medicine Emergency Medical Services
DX: H10.32 Unspecified acute conjunctivitis, left eye (principal); Z79.899 Other long term (current) drug therapy
CPT/HCPCS: 99283

== ENCOUNTER 2022-04-08 17:15 | Emergency (ER) | payer MEDICAID, SELFPAY ==
[2022-04-08 17:50] VITALS: BP 120/62; PULSE 66; RESP 16; TEMP 36.6; O2SAT 100; BMI 27.3
[2022-04-08 19:33] LABS: MANUAL DIFF FLAG NO
[2022-04-08 19:34] LABS: Basophils Absolute Auto 0.1 X10*3/uL (0.0-0.2); Basophils Percent Auto 1.1 % (0-2); Eosinophils Absolute Auto 0.1 X10*3/uL (0.0-0.4); Eosinophils Percent Auto 0.9 % (0-4); Hematocrit 43.5 % (37.0-47.0); Hemoglobin 14.5 g/dl (12.0-16.0); Imm Gran Abs Auto 0.01 X10*3/uL (0.00-0.03); Imm Gran Pct Auto 0.1 % (0.0-0.4); Lymphocytes Absolute Auto 2.2 X10*3/uL (1.2-4.9); Lymphocytes Percent Auto 25.2 % (20-40); Mean Corpuscular HGB Conc 33.3 g/dl (31.0-35.0); Mean Corpuscular Hemoglobin 29.7 pg (27.0-33.0); Mean Corpuscular Volume 89.1 fL (80.0-98.0); Mean Platelet Volume 9.9 fL (9.4-12.3); Monocytes Absolute Auto 0.8 X10*3/uL (0.1-1.2); Monocytes Percent Auto 8.7 % (2-11); Neutrophils Absolute Auto 5.7 x10*3/uL (2.0-8.3); Platelet Count 297 X10*3/uL (160-400); Red Blood Count 4.88 X10*6/uL (4.20-5.50); Red Cell Distribution Width 11.9 % (11.0-16.0); White Blood Count 8.9 X10*3/uL (4.8-10.8)
[2022-04-08 19:36] LABS: Appearance Urine Clear; Color Urine Yellow; Glucose Urine UA Negative (Negative); Leukocyte Esterase Urine Negative (Negative); Nitrite Urine Negative (Negative); PH 6.5 (5.0-9.0); Specific Gravity - Urine 1.025 (1.005-1.025); UMIC TRIGGER UACC YES; Urine Blood Moderate (2+) (Negative); Urine Ketones Negative (Negative); Urine Protein Negative (Neg-Trace)
[2022-04-08 19:38] LABS: UPreg QC Valid YES; Urine Pregnancy NEGATIVE (NEGATIVE)
[2022-04-08 19:42] LABS: Partial Thromboplastin Time 31.9 SEC (26.0-36.4)
[2022-04-08 19:43] LABS: Bacteria Urine 1+ (None Seen); Hyaline Casts Urine 0-2 /LPF (0-2); WBC Urine 0-5 /HPF (0-5)
[2022-04-08 20:22] LABS: Alanine Aminotransferase 6 U/L (0-31); Albumin Level 4.6 g/dL (3.5-5.0); Alkaline Phosphatase 89 U/L (39-117); Anion Gap 11 (12-20); Aspartate Amino Transferase 11 U/L (5-31); Bilirubin Total 0.2 mg/dL (0.0-1.0); Blood Urea Nitrogen 12 mg/dL (9-16); Calcium 9.9 mg/dL (8.4-10.2); Carbon Dioxide 27 mmol/L (22-29); Chloride 103 mmol/L (96-108); Estimated Glomerular Filt Rate > 60; Glucose Random 71 mg/dL (60-115); HCG Quantitative < 2 mIU/mL; Potassium 3.9 mmol/L (3.3-5.1); Sodium 137 mmol/L (135-145); Total Protein 7.2 g/dL (6.5-8.0)
--- NOTE | 2022-04-08 22:12 | ED.FEMALEGU ---
HPI - Female Genitourinary General Chief complaint: Urogenital-Female Stated complaint: vaginal bleeding ? Time Seen by Provider: 04/08/22 22:12 Source: patient Mode of arrival: ambulatory Limitations: no limitations History of Present Illness HPI Narrative: 21-year-old female presents for vaginal bleeding, abnormal vaginal discharge, and cramping. She did have a Depo-Provera shot in the beginning of February, and states that this is an abnormal cycle for her. She is concerned about miscarriage in at this time. MD elicited complaint: vaginal bleeding and vaginal discharge Onset (ago): day(s) (2) Severity: mild Quality of pain: cramping Consistency: intermittent Vaginal discharge: other (White tissue) Vaginal bleeding: scant Exacerbating factors: none Relieving factors: none Associated symptoms: denies other symptoms Treatment prior to arrival: none Patient : No Related Data Home Medications Medication Instructions Recorded Confirmed prenat.vits,bethel,[id number] 1 tab PO DAILY 04/29/20 10/03/20 Previous Rx's Medication Instructions Recorded levonorgestrel-ethinyl estradiol 1 tab PO DAILY #84 tabs 11/28/20 0.1 mg-20 mcg tablet albuterol sulfate 90 mcg/actuation 1 inh inhalation QID PRN shortness 01/17/21 aerosol inhaler of breath or wheezing #8.5 grams azithromycin 250 mg tablet See Rx Instructions PO .COMPLEX #6 01/17/21 tabs codeine 10 mg-guaifenesin 100 mg/5 5 ml PO Q6H PRN cold symptoms #120 01/17/21 mL oral liquid (Guaifenesin AC) mL cyclobenzaprine 10 mg tablet 10 mg PO Q8H Muscle spasm #10 tabs 01/17/21 doxycycline monohydrate 100 mg 100 mg PO BID #14 tabs 07/30/21 tablet metronidazole 500 mg tablet 500 mg PO BID 7 days #14 tabs 08/04/21 acetaminophen 500 mg tablet 1,000 mg PO QID PRN fever or pain 08/26/21 (Tylenol Extra Strength) #14 tabs cyclobenzaprine 10 mg tablet 10 mg PO Q8H PRN Muscle spasm #14 08/26/21 tabs albuterol sulfate 90 mcg/actuation 1 inh inhalation QID PRN shortness 01/02/22 aerosol inhaler of breath or wheezing #8.5 grams amoxicillin 875 mg-potassium 1 tab PO BID 7 days #14 tabs 01/02/22 clavulanate 125 mg tablet guaifenesin 200 mg/5 mL oral liquid 200 mg (5 mL) PO Q4H PRN 01/02/22 congestion #118 mL prednisone 20 mg tablet 40 mg PO DAILY Bronchospasm 5 days 01/02/22 #10 tabs erythromycin 5 mg/gram (0.5 %) eye 0.5 inch ophthalmic (eye) TID 7 02/23/22 ointment days #3.5 grams Allergies Allergy/AdvReac Type Severity Reaction Status Date / Time No Known Allergies Allergy Verified 08/26/21 16:36 [No Known Allergies*] Review of Systems Review of Systems: Constitutional: No Fever, No Chills ENT/Mouth: No sore throat, No Rhinorrhea Eyes: No Eye Pain, No Redness Cardiovascular: No Chest Pain, No SOB Respiratory: No Cough, No Sputum, No Wheezing Gastrointestinal: positive Nausea, No Vomiting, No Diarrhea, positive abdominal pain, Genitourinary: positive irregular bleeding, positive cramping, No Dysuria, No Urinary Frequency, no pelvic pain Musculoskeletal: No Myalgias Skin: No rash Neuro: No Weakness, No Headache Psych: No Anxiety/Panic, No Depression Heme/Lymph: No bruising, No Lymphadenopathy Endocrine: No Polyuria, No Polydipsia Yes all other systems are reviewed and are negative [facility] Past Medical History Attestation statement: The following information was validated with the patient. Source: old records reviewed Medical History No known health problems Family History Family History Mother No problems noted. Father No problems noted. Maternal Grandfather No problems noted. Maternal Grandmother Hx of diabetes mellitus Paternal Grandfather Hx of coronary artery disease Hx of diabetes mellitus Hx of primary hypertension Paternal Grandmother No problems noted. Sister No problems noted. Paternal Aunt No problems noted. Social History Social History Household Members: Significant Other Alcohol intake: never Advance Directives: No Patient : No Current occupational status: employed Current occupational exposures/hazards: No Sexual orientation: Straight/Heterosexual Physical Exam Vital Signs: Vital Signs: Last Vital Signs Temp 98.3 F 04/08/22 22:18 Pulse 61 04/08/22 22:18 Resp 16 04/08/22 22:18 BP 104/56 L 04/08/22 22:18 Pulse Ox 100 04/08/22 22:18 O2 Del Method 04/08/22 22:18 BMI result Body Mass Index 27.3 Appearance: Alert. Oriented X3. No acute distress. Eyes: Pupils equal, round and reactive to light. ENT: Pharynx normal. Neck: Normal inspection. Neck supple. CVS: Normal heart rate and rhythm. Pulses normal. Respiratory: No respiratory distress. Breath sounds normal. Abdomen: Soft and nontender. Skin: Skin warm and dry. Normal skin color. Normal skin turgor. Extremities: Gait well balanced well coordinated. Neuro: No motor deficit. No sensory deficit. Cranial nerves 2-12 intact. Course Course Course Narrative: 21-year-old female presents for abnormal vaginal bleeding. States that she had some white tissue clumps and was concerned about miscarriage. Patient's labs were drawn while she was in the emergency department waiting room, hCG was negative, less than 2. Patient is on the Depo-Provera shot, and does have abnormal menstrual cycle. H&H is within normal limits, other lab values are within normal limits. At this time considering hCG is negative, and patient does not have any adnexal pain, ectopic miscarriage are ruled out. Patient does not have any significant vaginal bleeding at this time, pelvic exam was deferred by this patient. Patient verbalized understanding of and agrees to plan of care discharge home. Verbalized understanding of signs symptoms indicating need for emergent intervention MDM - Female Genitourinary MDM Narrative Medical decision making narrative: Miscarriage, ectopic Differential Diagnosis Differential diagnosis: Likely cervicitis, vaginitis and dysmenorrhea Medical Records Attestation: I reviewed the patient's medical records. Lab Data Attestation: I reviewed the patient's lab results. Result diagrams: 04/08/22 19:24 04/08/22 19:24 Labs: Lab Results 04/08/22 04/08/22 12 Range/Units 19:24 19:24 19:24 WBC 8.9 (4.8-10.8) X10*3/uL RBC 4.88 (4.20-5.50) X10*6/uL Hgb 14.5 (12.0-16.0) g/dl Hct 43.5 (37.0-47.0) % MCV 89.1 (80.0-98.0) fL MCH 29.7 (27.0-33.0) pg MCHC 33.3 (31.0-35.0) g/dl RDW 11.9 (11.0-16.0) % Plt Count 297 (160-400) X10*3/uL MPV 9.9 (9.4-12.3) fL Immature Gran % (Auto) 0.1 (0.0-0.4) % Neut % (Auto) 64.0 (45-73) % Lymph % (Auto) 25.2 (20-40) % [place] % (Auto) 8.7 (2-11) % Eos % (Auto) 0.9 (0-4) % Baso % (Auto) 1.1 (0-2) % Lymph # (Auto) 2.2 (1.2-4.9) X10*3/uL [place] # (Auto) 0.8 (0.1-1.2) X10*3/uL Eos # (Auto) 0.1 (0.0-0.4) X10*3/uL Baso # (Auto) 0.1 (0.0-0.2) X10*3/uL Abs Immat Gran (auto) 0.01 (0.00-0.03) X10*3/uL Absolute Neuts (auto) 5.7 (2.0-8.3) x10*3/uL Absolute Nucleated RBC 0.000 (0.0-0.012) X10*3/uL Nucleated RBC % (auto) 0.0 (0.0-0.2) /100WBC PT 12.0 (10.0-13.1) SEC INR 1.0 (0.9-1.1) APTT 31.9 (26.0-36.4) SEC Sodium 137 (135-145) mmol/L Potassium 3.9 (3.3-5.1) mmol/L Chloride 103 (96-108) mmol/L Carbon Dioxide 27 (22-29) mmol/L Anion Gap 11 L (12-20) BUN 12 (9-16) mg/dL Creatinine 0.78 (0.5-1.4) mg/dL Estim Creat Clear Calc 106.0 Estimated GFR > 60 Random Glucose 71 (60-115) mg/dL Calcium 9.9 (8.4-10.2) mg/dL Total Bilirubin 0.2 (0.0-1.0) mg/dL AST 11 (5-31) U/L ALT 6 (0-31) U/L Alkaline Phosphatase 89 (39-117) U/L Total Protein 7.2 (6.5-8.0) g/dL Albumin 4.6 (3.5-5.0) g/dL Beta HCG, Quant < 2 mIU/mL Urine Color Urine Appearance Urine pH (5.0-9.0) Ur Specific Frost (1.005-1.025) Urine Protein (Neg-Trace) mg/dL Urine Glucose (UA) (Negative) mg/dL Urine Ketones (Negative) mg/dL Urine Blood (Negative) Urine Nitrite (Negative) Ur Leukocyte Esterase (Negative) Urine RBC (0-2) /HPF Urine WBC (0-5) /HPF Ur Squamous Epith Cells (0-2) /HPF Urine Bacteria (None Seen) Hyaline Casts (0-2) /LPF Urine Test (NEGATIVE) Blood Type 04/08/22 04/08/22 04/08/22 Range/Units 19:24 19:24 19:24 WBC (4.8-10.8) X10*3/uL RBC (4.20-5.50) X10*6/uL Hgb (12.0-16.0) g/dl Hct (37.0-47.0) % MCV (80.0-98.0) fL MCH (27.0-33.0) pg MCHC (31.0-35.0) g/dl RDW (11.0-16.0) % Plt Count (160-400) X10*3/uL MPV (9.4-12.3) fL Immature Gran % (Auto) (0.0-0.4) % Neut % (Auto) (45-73) % Lymph % (Auto) (20-40) % [place] % (Auto) (2-11) % Eos % (Auto) (0-4) % Baso % (Auto) (0-2) % Lymph # (Auto) (1.2-4.9) X10*3/uL [place] # (Auto) (0.1-1.2) X10*3/uL Eos # (Auto) (0.0-0.4) X10*3/uL Baso # (Auto) (0.0-0.2) X10*3/uL Abs Immat Gran (auto) (0.00-0.03) X10*3/uL Absolute Neuts (auto) (2.0-8.3) x10*3/uL Absolute Nucleated RBC (0.0-0.012) X10*3/uL Nucleated RBC % (auto) (0.0-0.2) /100WBC PT (10.0-13.1) SEC INR (0.9-1.1) APTT (26.0-36.4) SEC Sodium (135-145) mmol/L Potassium (3.3-5.1) mmol/L Chloride (96-108) mmol/L Carbon Dioxide (22-29) mmol/L Anion Gap (12-20) BUN (9-16) mg/dL Creatinine (0.5-1.4) mg/dL Estim Creat Clear Calc Estimated GFR Random Glucose (60-115) mg/dL Calcium (8.4-10.2) mg/dL Total Bilirubin (0.0-1.0) mg/dL AST (5-31) U/L ALT (0-31) U/L Alkaline Phosphatase (39-117) U/L Total Protein (6.5-8.0) g/dL Albumin (3.5-5.0) g/dL Beta HCG, Quant mIU/mL Urine Color Yellow Urine Appearance Clear Urine pH 6.5 (5.0-9.0) Ur Specific Frost 1.025 (1.005-1.025) Urine Protein Negative (Neg-Trace) mg/dL Urine Glucose (UA) Negative (Negative) mg/dL Urine Ketones Negative (Negative) mg/dL Urine Blood Moderate (2+) H (Negative) Urine Nitrite Negative (Negative) Ur Leukocyte Esterase Negative (Negative) Urine RBC 3-5 H (0-2) /HPF Urine WBC 0-5 (0-5) /HPF Ur Squamous Epith Cells 6-10 (0-2) /HPF Urine Bacteria 1+ (None Seen) Hyaline Casts 0-2 (0-2) /LPF Urine Test NEGATIVE (NEGATIVE) Blood Type O Positive Discharge Plan Discharge Clinical Impression: Abnormal vaginal bleeding Patient Disposition: Home, Self-Care Instructions: Dysfunctional Uterine Bleeding (ED) Additional Instructions: You were evaluated for abnormal vaginal bleeding. Your hCG level is 0. Follow-up with contact center rep and your primary care physician for further workup. Thank you for choosing this emergency department for evaluation. Please follow-up with primary care physician as needed. Return to the emergency department for any new, concerning, or worsening symptoms. Prescriptions: No Action cyclobenzaprine 10 mg tablet 10 mg PO Q8H Qty: 10 0RF azithromycin 250 mg tablet See Rx Instructions .ROUTE .COMPLEX Qty: 6 0RF Rx Instructions: take 500 mg today (day 1), then 250 mg for 4 days (days 2-5) codeine-guaifenesin [Guaifenesin AC] 10-100 mg/5 mL liquid 5 ml PO Q6H PRN (Reason: cold symptoms) Qty: 120 0RF albuterol sulfate 90 mcg/actuation HFA aerosol inhaler 1 inh inhalation QID PRN (Reason: shortness of breath or wheezing) Qty: 8.5 0RF amoxicillin-pot clavulanate 875-125 mg tablet 1 tab PO BID 7 Days Qty: 14 0RF guaifenesin 200 mg/5 mL liquid 200 mg PO Q4H PRN (Reason: congestion) Qty: 118 0RF prednisone 20 mg tablet 40 mg PO DAILY 5 Days Qty: 10 0RF albuterol sulfate 90 mcg/actuation HFA aerosol inhaler 1 inh inhalation QID PRN (Reason: shortness of breath or wheezing) Qty: 8.5 0RF erythromycin 5 mg/gram (0.5 %) ointment 0.5 inch ophthalmic (eye) TID 7 Days Qty: 3.5 0RF Rx Instructions: Left eye doxycycline monohydrate 100 mg tablet 100 mg PO BID Qty: 14 0RF metronidazole 500 mg tablet 500 mg PO BID 7 Days Qty: 14 0RF acetaminophen [Tylenol Extra Strength] 500 mg tablet 1,000 mg PO QID PRN (Reason: fever or pain) Qty: 14 0RF cyclobenzaprine 10 mg tablet 10 mg PO Q8H PRN (Reason: Muscle spasm) Qty: 14 0RF prenat.vits,bethel,[id number] Tablet 1 tab PO DAILY levonorgestrel-ethinyl estrad 0.1-20 mg-mcg tablet 1 tab PO DAILY Qty: 84 4RF Interventions: ED Discharge Assessment Last Done: 04/08/22 22:46 Discharge Date/Time: 04/08/22 22:47
[2022-04-08 22:18] VITALS: BP 104/56; PULSE 61; RESP 16; TEMP 36.8; O2SAT 100
== END 2022-04-08 22:47 | disposition home or self-care (01) ==
PROVIDERS: Physician Assistant; Emergency Provider Emergency Medicine
DX: N93.9 Abnormal uterine and vaginal bleeding, unspecified (principal)
CPT/HCPCS: 36415; 80053; 81001; 81025; 84702; 85025; 85610; 85730; 86900; 86901; 99283

== ENCOUNTER 2023-01-25 11:45 | Outpatient (REF) | payer MEDICAID, SELFPAY | END 2023-01-25 11:46 | disposition home or self-care (01) | LOC: HO.HHCLNP 11:45 | PROVIDERS: Visit Provider Registered Nurse | DX: N89.8 Other specified noninflammatory disorders of vagina (principal) | CPT/HCPCS: 36415; 81513 ==

== ENCOUNTER 2023-02-24 18:55 | Outpatient (REF) | payer MEDICAID, SELFPAY ==
[2023-02-25 08:55] LABS: CT PCR NOT DETECTED (Not Detect.); NG PCR NOT DETECTED (Not Detect.)
[2023-02-25 11:14] LABS: BV Int Neg Control Negative (Negative); BV Int Pos Control Positive (Positive)
== END 2023-02-24 18:56 | disposition home or self-care (01) ==
LOC: HO.HHCLNP 18:55
PROVIDERS: Visit Provider Family Medicine
DX: N76.0 Acute vaginitis (principal); B96.89 Other specified bacterial agents as the cause of diseases classified elsewhere
CPT/HCPCS: 0353U; 87480; 87510; 87660

== ENCOUNTER 2023-04-06 14:26 | Outpatient (REF) | payer MEDICAID, SELFPAY ==
[2023-04-09 14:38] LABS: TS Negative Control Passed; TS Panel A 0; TS Panel B 1; TS Positive Control Passed; TSpotTB Negative (Negative)
== END 2023-04-06 14:27 | disposition home or self-care (01) ==
LOC: HO.HHCL 14:26
PROVIDERS: Visit Provider Registered Nurse
DX: Z11.1 Encounter for screening for respiratory tuberculosis (principal)
CPT/HCPCS: 36415; 86481

== ENCOUNTER 2023-07-04 13:55 | Outpatient (REF) | payer MEDICAID, SELFPAY ==
[2023-07-04 16:15] LABS: MANUAL DIFF FLAG NO
[2023-07-04 16:35] LABS: Basophils Absolute Auto 0.1 X10*3/uL (0.0-0.2); Basophils Percent Auto 0.9 % (0-2); Eosinophils Absolute Auto 0.1 X10*3/uL (0.0-0.4); Eosinophils Percent Auto 1.5 % (0-4); Hematocrit 42.7 % (37.0-47.0); Hemoglobin 14.1 g/dl (12.0-16.0); Imm Gran Abs Auto 0.02 X10*3/uL (0.00-0.03); Imm Gran Pct Auto 0.3 % (0.0-0.4); Lymphocytes Percent Auto 26.1 % (20-40); Mean Corpuscular Hemoglobin 29.4 pg (27.0-33.0); Mean Platelet Volume 10.5 fL (9.4-12.3); Monocytes Absolute Auto 0.7 X10*3/uL (0.1-1.2); Monocytes Percent Auto 9.7 % (2-11); Neutrophils Absolute Auto 4.6 x10*3/uL (2.0-8.3); Neutrophils Percent Auto 61.5 % (45-73); Platelet Count 280 X10*3/uL (160-400); Red Cell Distribution Width 12.7 % (11.0-16.0); White Blood Count 7.5 X10*3/uL (4.8-10.8)
[2023-07-04 16:52] LABS: Alanine Aminotransferase < 5 U/L (0-31); Albumin Level 4.4 g/dL (3.5-5.0); Alkaline Phosphatase 81 U/L (39-117); Anion Gap 11 (12-20); Aspartate Amino Transferase 12 U/L (5-31); Bilirubin Total 0.4 mg/dL (0.0-1.0); Blood Urea Nitrogen 10 mg/dL (9-16); Calcium 9.5 mg/dL (8.4-10.2); Carbon Dioxide 27 mmol/L (22-29); Chloride 104 mmol/L (96-108); Estimated Glomerular Filt Rate > 60; Glucose Random 85 mg/dL (60-115); Sodium 138 mmol/L (135-145); Total Protein 6.9 g/dL (6.5-8.0)
[2023-07-04 17:07] LABS: TSH reflex Free T4 2.24 uIU/mL (0.32-4.0)
[2023-07-05 11:48] LABS: CT PCR NOT DETECTED (Not Detect.); NG PCR NOT DETECTED (Not Detect.)
== END 2023-07-04 13:56 | disposition home or self-care (01) ==
LOC: HO.HHCL 13:55
PROVIDERS: Visit Provider Nurse Practitioner Family
DX: R10.2 Pelvic and perineal pain (principal); R53.83 Other fatigue
CPT/HCPCS: 0353U; 36415; 80053; 84443; 85025

== ENCOUNTER 2023-09-23 16:13 | Outpatient (REF) | payer MEDICAID, SELFPAY ==
[2023-09-24 09:35] LABS: Bacterial Vaginosis PCR POSITIVE (Negative); Candida Group PCR NOT DETECTED (Not Detect); Candida glab krusei PCR NOT DETECTED (Not Detect); Trichomonas vaginalis PCR NOT DETECTED (Not Detect)
== END 2023-09-23 16:14 | disposition home or self-care (01) ==
LOC: HO.HHCLNP 16:13
PROVIDERS: Visit Provider Registered Nurse
DX: N89.8 Other specified noninflammatory disorders of vagina (principal)
CPT/HCPCS: 0352U

== ENCOUNTER 2024-01-03 17:05 | Outpatient (REF) | payer MEDICAID, SELFPAY ==
[2024-01-03 18:27] LABS: Bacterial Vaginosis PCR POSITIVE (Negative); Candida Group PCR NOT DETECTED (Not Detect); Candida glab krusei PCR NOT DETECTED (Not Detect); Trichomonas vaginalis PCR NOT DETECTED (Not Detect)
[2024-01-03 18:57] LABS: CT PCR NOT DETECTED (Not Detect.); NG PCR NOT DETECTED (Not Detect.)
== END 2024-01-03 17:06 | disposition home or self-care (01) ==
LOC: HO.HHCLNP 17:05
PROVIDERS: Visit Provider Nurse Practitioner Family
DX: N89.8 Other specified noninflammatory disorders of vagina (principal)
CPT/HCPCS: 0352U; 87070; 87491; 87591

== ENCOUNTER 2024-02-17 10:07 | Outpatient (REF) | payer MEDICAID, SELFPAY ==
[2024-02-17 12:08] LABS: HBS Num1 5.95 mIU/mL (0-7.99); HBsAGNum1 0.38 S/CO (0.00-0.99); HIV AB/AG Nonreactive (Nonreactive); HIV Num 1 0.06 S/CO (0.00-0.99); Hepatitis B Surface Antigen Negative (Negative); ~HepC Num1 0.11 S/CO (0.00-0.79); ~Hepatitis B Surface Antibody NONREACTIVE (Nonreactive); ~Hepatitis C Antibody Nonreactive (Nonreactive)
[2024-02-18 05:24] LABS: CT PCR NOT DETECTED (Not Detect.); NG PCR NOT DETECTED (Not Detect.)
[2024-02-18 11:58] LABS: Bacterial Vaginosis PCR POSITIVE (Negative); Candida Group PCR DETECTED (Not Detect); Candida glab krusei PCR NOT DETECTED (Not Detect); Trichomonas vaginalis PCR NOT DETECTED (Not Detect)
[2024-02-21 12:43] LABS: RPR Rapid Plasma Reagin NON-REACTIVE (NON-REACTIVE)
== END 2024-02-17 10:08 | disposition home or self-care (01) ==
LOC: HO.HHCL 10:07
PROVIDERS: Visit Provider Family Medicine
DX: Z11.3 Encounter for screening for infections with a predominantly sexual mode of transmission (principal); N89.8 Other specified noninflammatory disorders of vagina
CPT/HCPCS: 0352U; 36415; 86592; 86706; 86803; 87340; 87389; 87491; 87591

== ENCOUNTER 2024-05-23 16:39 | Outpatient (REF) | payer MEDICAID, SELFPAY ==
[2024-05-23 20:10] LABS: Bacterial Vaginosis PCR POSITIVE (Negative); Candida Group PCR NOT DETECTED (Not Detect); Candida glab krusei PCR NOT DETECTED (Not Detect); Trichomonas vaginalis PCR NOT DETECTED (Not Detect)
== END 2024-05-23 16:40 | disposition home or self-care (01) ==
LOC: HO.HHCLNP 16:39
PROVIDERS: Visit Provider Advanced Practice Midwife
DX: N89.8 Other specified noninflammatory disorders of vagina (principal)
CPT/HCPCS: 81515

== ENCOUNTER 2024-07-18 09:09 | Outpatient (REF) | payer MEDICAID, SELFPAY ==
--- OUTSIDE RECORDS SUMMARY | 2024-07-18 09:47 | XMS_ITS | Clinical Summary ---
Author Organization [facility] it Address [address] [place] [address] Care Team Providers Care Bus Steward Name Role Phone Unavailable Primary Care Provider Unavailabl e Surgical History Surgery Date Site/Laterality Comments OTHER SURGICAL HISTORY PROCEDURE: DENIES PREVIOUS SURGERY Medical History Medical History Date Comments Obesity DX:Obesity Social History Tobacco Use Types Packs/Day Years Used Date Smoking Tobacco: Never Assessed Comments Unknown Sex and Gender Information Value Date Recorded Sex Assigned at Not on file Legal Sex Female 5:00 AM EST Gender Identity Not on file Sexual Orientation Not on file Obstetrics History Plan of Treatment Health Maintenance Due Date Last Done Comments HPV Vaccines (1 - 3-dose series) 2014 DTaP,Tdap,and Td Vaccines (1 - Tdap) 2018 Hepatitis B Vaccines (1 of 3 - 19+ 3-dose series) 2018 Cervical Cancer Screening: P ap Smear 2020 COVID-19 Vaccine ( - 2023-2 5 season) 2024 Influenza Vaccine (#1) 2024 HIB Vaccines Aged Out No longer eligi ble based on patient's age to complete this topic Hepatitis A Vaccines Aged Out No long er eligible based on patient's age to complete this topic IPV Vaccines Aged Out No longer eligi ble based on patient's age to complete this topic MMR Vaccines Aged Out No longer eligi ble based on patient's age to complete this topic Meningococcal ACWY Vaccine Aged Out N o longer eligible based on patient's age to complete this topic Meningococcal B Vacine Aged Out No lo nger eligible based on patient's age to complete this topic Pneumococcal Vaccine: Pediat rics (0 to 5 Years) and At-Risk Patients (6 to 64 Years) Aged Out No longer eligible b ased on patient's age to complete this topic RSV Immunization Patients Un [place] 20 months Aged Out No longer eligible b ased on patient's age to complete this topic Varicella Vaccines Aged Out No longer eligible based on patient's age to complete this topic
--- OUTSIDE RECORDS SUMMARY | 2024-07-18 09:47 | XMS_ITS | Clinical Summary ---
Author Organization [employer] Address [address] [facility] 7t [place] [address] Care Team Providers Care Recreational Assistant Name Role Phone Karon Powell [facility] Primary Care Provider [phone] Allergies No known active allergies Medications emtricitabine-ten ofovir DF (Truvada) 200-300 MG tablet Take 1 tablet by mouth at bed time. 2 Active fluticasone (Flonase Allergy Relief) 50 MCG/ACT nasal spray Administer 2 sprays into affected nostril(s) at bed time. 2 Active loratadine (Claritin) 10 MG tablet Take 1 tablet by mouth at bed time. 2 Active Methylcellulose, Laxative, (Citrucel) 500 MG tablet Take 2 capsules by mouth in the morning. 2 Active polyethylene glycol, PEG, 3350 (MiraLax) 17 GM/SCOOP powder Take 17 g by mouth 1 (one) time each day. 2 Active Fzwfql-FR-Rdjhcdn n-Petrolatum 1-0.25-14.4-15 % cream Apply to area 2x daily 2 Active hydrocortisone (Anusol-HC) 2.5 % rectal creamIndications: External hemorrhoids Apply small quantity to skin around anus twice daily 28 g 3 Active Additional Information Patient not taking.Reported on 08/29/2023 escitalopram (Lexapro) 5 MG tablet Take 5 mg by mouth at bedtime. 3 Active benzoyl peroxide (PanOxyl Foaming Wash) 10 % external washIndications:F olliculitis Apply topically 2 times daily. 142 g 1 4 025 Active FLUoxetine (PROzac) 20 MG capsule Take 20 mg by mouth in the morning. 4 Active etonogestrel-ethi nyl estradiol (NuvaRing) 0.12-0.015 MG/24HR vaginal ringIndications:E ncounter for surveillance of vaginal ring hormonal contraceptive device Insert vaginally and leave in place for 3 consecutive weeks, then remove for 1 week. Discard old ring. Repeat cycle. 1 Ring. 11 5 Active Active Problems Problem Noted Date Diagnosed Date Dysmenorrhea 07/04/2023 Assessment & Plan (07/04/2023 5:47 PM EST): Requesting nuva ring, poc hcg negative, however pt aware that it may be too soon to detect , aware to consider waiting until next menses, or repeating test at home Side effects reviewed Mild intermittent asthma 12/11/2022 Overview (12/11/2022): ?? PRN albuterol Anxiety and depression 07/09/2022 Overview (12/11/2022): ?? Escitalopram ?? Established with therapist Resolved Problems Problem Noted Date Diagnosed Date Resolved Date Vaginal pain 07/04/2023 02/17/2024 Assessment & Plan (07/04/2023 5:46 PM EST): Labs as ordered below, no discharge Fatigue 07/04/2023 02/17/2024 Assessment & Plan (07/04/2023 5:45 PM EST): Vague symptom of fatigue, possible viral infection which caused recent cough, no current symptoms except fatigue, tsh and cbc ordered Encounters Date Type Department Care Team Description 07/17/2024 1:00 PM EDT Office Visit [facility] MEDICINE [address] [place] [phone] Ene Elmore CNM Galactorrhea (Primary Dx) 07/17/2024 Travel 06/15/[address] [facility] MEDICINE [address] [place] [address] Karon Powell FNP No Show 06/04/2024 Patient Outreach [address] [address] Karon Powell FNP Care Coordination (CHW outreach for SDOH foodn and utilities - LVM ) 06/04/2024 Patient Outreach [facility] [place] [address] Karon Powell FNP Pre-visit Planning (SDOH screening negative and tobacco screening negative) 05/24/2024 Orders Only [address] [address] Ene Elmore CNM 05/23/2024 11:30 AM EST Office Visit [address] [address] Ene Elmore CNM Vaginal odor (Primary Dx); Encounter for surveillance of vaginal ring hormonal contraceptive device; Abnormal uterine bleeding (AUB) 05/23/2024 Travel 05/14/2024 Travel from Last 3 Months Immunizations Name Administration Dates Next Due Tdap 08/07/2018,01/08/2011 Family History Medical History Relation Name Comments Breast cancer Neg Hx Colon cancer Neg Hx Social History Tobacco Use Types Packs/Day Years Used Date Smoking Tobacco: Never Passive Smoke Exposure: Never Smokeless Tobacco: Never Tobacco Cessation:Counseling Given: Not Answered Alcohol Use Standard Drinks/Week Comments Yes 6 (1 standard drink = 0.6 oz pur e alcohol) Depression Answer Date Recorded Patient Health Questionnaire-9 Score 0 09/23/2023 Patient Health Questionnaire-9 Score 0 09/23/2023 Last PHQ-9: Questionnaire Data Not on file 0 09/23/2023 Housing Stability Answer Date Recorded What is your housing situation today? I have delorismodesto camargo 06/04/[address] you li ve. Do you have problems with any of the following? None of the above 06/04/2024 Food Insecurity Answer Date Recorded Within the past 12 months, y ou worried that your food would run out before you got money to buy more: Never True 06/04/2024 Within the past 12 months,th e food you bought just didn't last and you didn't have enough money to get more: Never True Transportation Answer Date Recorded In the past 12 months, has l ack of transportation kept you from medical appts, meetings, work or from getting things needed for daily living? No 06/04/2024 Utilities Answer Date Recorded In the past 12 months, has t he electric, gas, oil or water company threatened to shut off services in your home? Yes 06/04/2024 Depression Answer Date Recorded Patient Health Questionnaire-2 Score 0 09/23/2023 Internet Access Answer Date Recorded Internet Access Q1 Yes 06/04/2024 Internet Access Q2 Not on file 06/04/2024 Comments No Sex and Gender Information Value Date Recorded Sex Assigned at Female 03/08/2022 10:32 AM EDT Legal Sex Female 10:32 AM EDT Gender Identity Female 03/08/2022 10:32 AM EDT Sexual Orientation Straight 03/08/2022 10 :32 AM EDT Last Filed Vital Signs Vital Sign Reading Time Taken Comments Blood Pressure 100/70 07/17/2024 1:08 PM EDT Pulse 60 07/17/2024 1:08 PM EDT Temperature 35.6 ??C (96.1 ??F) 05/23/2024 11:[address] Respiratory Rate 15 07/17/2024 1:08 PM EDT Oxygen Saturation 99% 05/23/2024 11:50 AM EST Inhaled Oxygen Concentration - - Weight 55.5 kg (122 lb 6.4 oz) 07/17/2024 1:08 P M EDT Height 161.3 cm (5' 3.5 ) 05/23/2024 11:50 AM ES T Body Mass Index 21.34 05/23/2024 11:50 AM EST Plan of Treatment Upcoming Encounters Date Type Department Care Team (Late st Contact Info) Description 08/03/2024 11:00 AM EDT Office Visit [facility] ADULT DENTAL [address] [place] [address] Gustavo Pa, MECHE [address] [place] [address] 08/07/2024 1:45 PM EDT Procedure Visit [facility] MEDICINE [address] [place] [address] Ene Elmore CNM [address] [place] [address] Health Maintenance Due Date Last Done Comments Dental Prophylaxis 1999 Alcohol/Substance Use Screening 2011 Pneumococcal Vaccine: Pediatrics (0 to 5 Years) and At-Risk Patients (6 to 49) Years) (1 of 2 - PCV) 2018 Dental Oral Exam 10/26/2023 04/25/2023 Pap Smear 11/29/2023 11/28/2020 COVID-19 Vaccine (3 - season) 2024 01/07/2022, 12/04/2021 Influenza Vaccine (#1) 2024 , 04/18/2018, 04/05/2017, Additional history exists Depression Screening 09/22/2024 09/23/2023, 09/23/19 Dental X-Ray: Bitewings 12/05/2024 12/05/19 24, 04/25/2023, 04/13/2022 SDOH Screening 06/04/2025 06/04/2024 Family Planning (PISQ) 07/17/2025 07/17/2024 Tobacco Screening 07/17/2025 07/17/2024 Dental X-Ray: Full Mouth 04/26/2026 04/25/2023 DTaP/Tdap/Td Vaccines (7 - Td or Tdap) 08/07/2028 08/07/2018, 01/08/2011, 11/06/2003, Additional history exists Zoster Vaccines (1 of 2) 2049 RSV Patients and Patients Aged 60 years or older (1 - 1-dose 75+ series) 2074 Hepatitis B Vaccines Completed 01/23/2000, 1999, 1999 HIB Vaccines Completed 09/29/2000, 01/07, 1999, Additional history exists IPV Vaccines Completed 07/04/2003, 10/1999, 1999, Additional history exists Hepatitis A Vaccines Completed 11/02/2011, 02/02/20 11 HPV Vaccines Completed 12/01/2011, 09/2011, 01/08/2011 Meningococcal Vaccine Completed 10/22/2016, 011 HIV Screening Completed 02/17/2024, 08/07, 12/23/2021 Hepatitis C Screening Completed 02/17/2024, 023 RSV under 20 months Aged Out No longe r eligible based on patient's age to complete this topic Rotavirus Vaccines Aged Out No longer eligible based on patient's age to complete this topic Procedures Procedure Name Priority Date/Time Associated Diagnosis Comments POCT , URINE Routine 07/17/2024 1:18 PM EDT Galactorrhea POCT , URINE Routine 05/23/2024 12:43 PM EST Abnormal uterine bleeding (AUB) BACTERIAL VAGINOSIS PANEL Routine 05/23/2024 12:35 PM EST Vaginal odor HEPATITIS C AB W/REFL TO HCV RNA, QN, PCR Routine 02/17/2024 10:10 AM EDT Routine screening for STI (sexually transmitted infection) HIV 1/2 ANTIGEN/ANTIBODY, FOURTH GENERATION W/RFL Routine 02/17/2024 10:10 AM EDT Routine screening for STI (sexually transmitted infection) BITEWING - SINGLE RADIOGRAPHIC IMAGE Routine 12/05/2023 1:00 PM EDT INTRAORAL - COMPLETE SERIES OF RADIOGRAPHIC IMAGES Routine 04/25/2023 1:00 PM EST PERIODIC ORAL EVALUATION - ESTABLISHED PATIENT Routine 04/25/2023 1:00 PM EST PAP SMEAR Routine 11/28/2020 12:00 AM EDT from Last 3 Months or Most Recently Relevant to Health Maintenance Results * POCT , urine manually resulted (07/17/2024 1:18 PM EDT) Only the most recent of2 resultswithin the time period is included. Preg Test, Ur Negative Negative, Indeterminate, None Detected, Invalid, Specimen unsatisfactory for evaluation, Weakly Positive QC Media Lot # [id number] Lot# Expiration Date [id number] Urine 07/17/2024 1:18 PM EDT Ene HUANG POINT OF CARE TEST ENTER/ EDIT ORDERABLES Final Result * (ABNORMAL) Bacterial Vaginosis Panel (05/23/2024 12:35 PM EST) TRICHOMONAS VAGINALIS DETECTION BY PCR NOT DETECTED Not Detect [facility] BACTERIAL VAGINOSIS DETECTION BY PCR POSITIVE(A) Negative [facility] Comment:The BV organism targ ets of the Xpert Xpress MVP test can becommensal in women; Xpert Xpress MVP positive results forbacterial vaginosis should be considered in conjunction withother clinical and patient information to determine thedisease status. Organisms that are not detected by the XpertXpress MVP test have also been reported to be associatedwith BV and aerobic vaginitis.The Xpert Xpress MVP test performance has not been evaluatedin patients under the age of 14. TATA GROUP DETECTION BY PCR NOT DETECTED Not Detect [facility] Tata glab krusei PCR NOT DETECTED Not Detect [facility] Swab Vaginal structure / Unknown 05/23/2024 12:35 PM EST 05/23/2024 4:40 PM EST Ene HUANG LAB MICROBIOLOGY - GENERA L ORDERABLES Final Result Performing Organization Address City/[facility] Co de Phone Number [facility] [address] [place] [phone] * Hepatitis C Antibody with Reflex to HCV, RNA, Quantitative, Real-Time PCR (02/17/2024 10:10 AM EDT) Pathologist [facility] Hepatitis C Antibody Nonreactive Nonreactive [facility] Comment:Antibodies to HCV no t detected; does not exclude early acuteHCV infection. Blood Venous blood specimen / Unknown 02/17/2024 10:10 AM EDT 02/17/2024 11:09 AM EDT Princess Kaufman DO LAB BLOOD ORDERABLES Final R esult Performing Organization Address City/[facility]/ZIP Co de Phone Number [facility] [address] [place] [address] [phone] * HIV-1/2 Antigen and Antibodies, Fourth Generation, with Reflexes (02/17/2024 10:10 AM EDT) HIV AB/AG Nonreactive Nonreactive [facility] Comment:HIV-1 p24 Ag and/or HIV-1/HIV-2 Ab not detected.A test result that is nonreactive does not exclude thepossibility of exposure to or infection with HIV-1 and/orHIV-2. Nonreactive results in this assay for individualswith prior exposure to HIV-1 and/or HIV-2 may be due toantigen and antibody levels that are below the limit ofdetection of this assay.The Runscope HIV Ag/Ab Combo assay result andsupplemental assay results should be interpreted inconjunction with the patient's clinical presentation,history and other laboratory results. If the results areinconsistent with clinical evidence, additional testing issuggested to confirm the result. Blood Venous blood specimen / Unknown 02/17/2024 10:10 AM EDT 02/17/2024 11:09 AM EDT Princess Kaufman DO LAB BLOOD ORDERABLES Final R esult [facility] [address] [place] [phone] * Pap Smear (11/28/2020 12:00 AM EDT) Swab us Historical Provider LAB CYTOLOGY ORDERABLES F inal Result Performing Organization Address City/[facility]/ZIP Co de Phone Number [facility] [address] [place] [phone] from Last 3 Months or Most Recently Relevant to Health Maintenance Insurance [facility] C3 D[facility]AL[facility] MEDICAID STAND ADULT DENTAL - HSN PARTIAL (MEDICAID) * Guarantor: Maicol Krishna Account Type Relation to Patient Date of Phone Billing Address Personal/Family Self [place] [address] [place] [address] Care Teams Recreational Assistant Relationship Specialty Start Date End Date H[facility]Karon [facility] [address] [place] [phone] PCP - General Family Medicine 11/03/21
--- OUTSIDE RECORDS SUMMARY | 2024-07-18 09:47 | XMS_ITS | Encounter Summary ---
Author Organization [employer] Address [address] [facility] 7t [place] [address] Care Team Providers Care Pegger Dobby Looms Name Role Phone Karon Powell INSURANCE PLAN SPECIALIST Primary Care Provider [phone] Encounter Details Date Type Department Care Team (Latest Contact Info) Description 07/17/2024 Travel Social History Tobacco Use Types Packs/Day Years Used Date Smoking Tobacco: Never Passive Smoke Exposure: Never Smokeless Tobacco: Never Alcohol Use Standard Drinks/Week Comments Yes 6 (1 standard drink = 0.6 oz pur e alcohol) Depression Answer Date Recorded Patient Health Questionnaire-9 Score 0 09/23/2023 Patient Health Questionnaire-9 Score 0 09/23/2023 Last PHQ-9: Questionnaire Data Not on file 0 09/23/2023 Housing Stability Answer Date Recorded What is your housing situation today? I have deloris camargo 06/04/[address] you [...] Orientation Straight 03/08/2022 10 :32 AM EDT documented as of this encounter Plan of Treatment Upcoming Encounters Date Type Department Care Team (Late st Contact Info) Description 08/03/2024 11:00 AM EDT Office Visit [facility] ADULT DENTAL [address] [place] [address] Gustavo Pa, MECHE [address] [place] [address] 08/07/2024 1:45 PM EDT Procedure Visit [facility] MEDICINE [address] [place] [address] Ene Elmore CNM [address] [place] [address] documented as of this encounter Visit Diagnoses Not on filedocumented in this encounter Additional Health Concerns Assessment Noted Time PHQ-9 Depression Total Score: 0 09/23/19 24 9:24 AM EDT documented as of this encounter Care Teams Pegger Dobby Looms Relationship Specialty Start Date End Date Karon Powell FNP [address] [place] [address] PCP - General Family Medicine 11/03/21 documented as of this encounter
--- OUTSIDE RECORDS SUMMARY | 2024-07-18 09:47 | XMS_ITS | Encounter Summary ---
Author Organization [employer] [facility] Address [address] [place] [address] 7t [place] [address] Care Team Providers Care Ultrasound Technol Name Role Phone [facility] Primary Care Provider [phone] Reason for Visit * Reason Onset Date Comments Results 05/14/2022 triage 05/14/2022 Encounter Details Date Type Department Care Team ([facility] st Contact Info) Description 05/14/[address] [facility] MEDICINE [address] [place], [place] [phone] [facility] [address] [place], [place] [phone] Results; triage Social History Tobacco Use Types Packs/Day Years Used Date Smoking Tobacco: Never Passive Smoke Exposure: Never Smokeless Tobacco: Never Alcohol Use Standard Drinks/Week Comments Yes 6 (1 standard drink = 0.6 oz pur e alcohol) Comments Unknown Sex and Gender Information Value Date Recorded Sex Assigned at Female 03/08/2022 10:32 AM EDT Legal Sex Female 10:32 AM EDT Gender Identity Female 03/08/2022 10:32 AM EDT Sexual Orientation Straight 03/08/2022 10 :32 AM EDT COVID-19 Exposure Response Date Recorded In the last 10 days, have yo u been in contact with someone who was confirmed or suspected to have Coronavirus/COVID-19? No / Unsure 05/14/2022 2:50 PM EST documented as of this encounter Miscellaneous Notes * Telephone Encounter - Katy Mixon RN - 05/25/2022 10:14 AM EST T/C to pt. Advised nurse visit for Depo rv cancelled this morning as pt is scheduled this afternoonwith pcp and Depo can be given at that appointment. Pt verbalized understanding. * Telephone Encounter - Khalida Lopez RN - 05/14/2022 4:11 PM EST Triage call Pt reports hemorrhoids are not going away. Pt reports this has been a problem for a year. Neg for bleeding. Pt does have some rectal pain and reports has diarrhea and this irritates it. Pt hasn't taken the powder described because would rather have the diarrhea than difficulty passing bm. Pt would like to speak to PCP about how to remove these hemorrhoids. scheduleded appt with PCP05/25 @ 315pm, insurance is verified as active prior to booking. Protocol Used: Rectal Symptoms (Adult) Protocol-Based Disposition: See in Office or Video Visit within 2 Weeks Positive Triage Question: * Painless lump in rectal area * All higher-acuity triage questions were negative Care Advice Discussed: * Reassurance and Education - Mild Rectal Pain or Irritation * Warm Saline SITZ Baths - For Rectal Symptoms * Warm Saline Sitz Bath - How to Make a Sitz Bath * Stool Softener (Colace) for Hard Bowel Movements * Stool Softener - Extra Notes and Warnings * Preventing Constipation * Expected Course * Reasons To Call Back - Severe rectal pain - Rectal pain not improved after 3 days - Rectal bleeding is more than minor (e.g., more than just blood on toilet paper or few drops) - Rectal bleeding is minor but is ongoing (e.g., occurs over 2 times) - You become worse * Telephone Encounter - Ricardo Manzano - 05/14/2022 12:33 PM EST Symptom: Rectal Symptoms - Not Bleeding Outcome: Schedule an urgent appointment (within 1 hour) or talk to a nurse or provider soon Reason: Severe pain now The caller accepted this outcome * Telephone Encounter - Ricardo Manzano - 05/14/2022 12:28 PM EST Tc from pt requesting lab work results Please contact pt at [phone] documented in this encounter Plan of Treatment Upcoming Encounters Date Type Department Care Team (Late st Contact Info) Description 08/03/2024 11:00 AM EDT Office Visit [facility] ADULT DENTAL [address] [place] [address] Gustavo Pa, MECHE [address] [place] [address] 08/07/2024 1:45 PM EDT Procedure Visit [facility] MEDICINE [address] [place] [address] Ene Elmore CNM [address] [place] [address] documented as of this encounter Visit Diagnoses Not on filedocumented in this encounter Care Teams Ultrasound Technol Relationship Specialty Start Date End Date Karon Powell FNP [address] [place] [address] PCP - General Family Medicine 11/03/21 documented as of this encounter
--- OUTSIDE RECORDS SUMMARY | 2024-07-18 09:47 | XMS_ITS | Encounter Summary ---
Author Organization [employer] Address [address] [facility] 7t [place] [address] Care Team Providers Care Master Automotive Glass Technician Name Role Phone Karon Powell HOSPITAL TELEVISION RENTAL CLERK Primary Care Provider [phone] Encounter Details Date Type Department Care Team ([facility] st Contact Info) Description 07/17/2024 1:00 PM EDT Office Visit [facility] MEDICINE [address] [place], [place] [phone] Ene Elmore, SAL [address] [place], [place] [phone] Galactorrhea (Primary Dx) Social History Tobacco Use Types Packs/Day Years [...] AM EDT documented as of this encounter Last Filed Vital Signs Vital Sign Reading Time Taken Comments Blood Pressure 100/70 07/17/2024 1:08 PM EDT Pulse 60 07/17/2024 1:08 PM EDT Temperature - - Respiratory Rate 15 07/17/2024 1:08 PM EDT Oxygen Saturation - - Inhaled Oxygen Concentration - - Weight 55.5 kg (122 lb 6.4 oz) 07/17/2024 1:08 P M EDT Height - - Body Mass Index 21.34 05/23/2024 11:50 AM EST documented in this encounter Progress Notes * Ene Elmore, RJ - 07/17/2024 1:00 PM EDT Subjective Patient ID: Maicol Eddy is a 24 y.o. female who presents for breast symptoms Notes new onset right breast pain, bilateral expressive galactorrhea, not bloody or abnormally colored. No other breast symptoms. Started on NuvaRing 05/2024. Happy with method, denies ACHES. Just took ring out for ring free week. Treated for bacterial vaginosis 05/2024. Gonorrhea/Chlamydia/trichomonas, HIV, syphilis, Hep C neg 02/2024. Negative test 05/23/2024. Pap NIL 11/2020. Will schedule for pap at front clerk. Normal TSH 06/2023. Surgical termination at 7wks on 04/11/2024 Review of Systems Eyes: Negative for visual disturbance. Respiratory: Negative for shortness of breath. Cardiovascular: Negative for chest pain and leg swelling. Skin: Negative for color change. Neurological: Negative for headaches. Objective BP 100/70 Pulse 60 Resp 15 Wt 122 lb 6.4 oz (55.5 kg) LMP 06/15/2024 (Exact Date) BMI 21.34 kg/m?? Physical Exam Constitutional: Appearance: Normal appearance. Chest: Breasts: Right: Normal. No swelling, bleeding, inverted nipple, mass, nipple discharge, skin change or tenderness. Left: Normal. No swelling, bleeding, inverted nipple, mass, nipple discharge, skin change or tenderness. Lymphadenopathy: Upper Body: Right upper body: No supraclavicular or axillary adenopathy. Left upper body: No supraclavicular or axillary adenopathy. Neurological: Mental Status: She is alert. Psychiatric: Mood and Affect: Mood normal. Behavior: Behavior normal. Assessment/Plan Diagnoses and all orders for this visit: Galactorrhea - POCT , urine manually resulted - TSH W/Reflex to FT4; Future - Prolactin; Future Negative test today. Sounds more bilateral and expressive than spontaneous. No new medications. Will check fasting TSH/Prl as precaution and contact with results. If all normal, consider breast ultrasound. Schedule pap at front clerk. documented in this encounter Plan of Treatment Upcoming Encounters Date Type Department Care Team (Late st Contact Info) Description 08/03/2024 11:00 AM EDT Office Visit [facility] ADULT DENTAL [address] [place] [address] Gustavo Pa, MECHE [address] [place] [address] 08/07/2024 1:45 PM EDT Procedure Visit [facility] MEDICINE [address] [place], [place] [phone] Ene Elmore CNM [address] [place] [address] Scheduled Orders Name Type Priority Associated Diagnoses Orde r Schedule TSH W/Reflex to FT4 Lab Routine Galactorrhea Expected: 07/17/2024 (Approximate), Expires: 07/17/2025 Prolactin Lab Routine Galactorrhea Expected: 07/17/2024 (Approximate), Expires: 07/17/2025 documented as of this encounter Procedures Procedure Name Priority Date/Time Associated Diagnosis Comments POCT , URINE Routine 07/17/2024 1:18 PM EDT Galactorrhea documented in this encounter Results * POCT , urine manually resulted (07/17/2024 1:18 PM EDT) Preg Test, Ur Negative Negative, Indeterminate, None Detected, Invalid, Specimen unsatisfactory for evaluation, Weakly Positive QC Media Lot # [id number] Lot# Expiration Date [id number] Urine 07/17/2024 1:18 PM EDT Ene Elmore CNM POINT OF CARE TEST ENTER/ EDIT ORDERABLES Final Result documented in this encounter Visit Diagnoses Diagnosis Galactorrhea- Primary Galactorrhea not associated with childbirth documented in this encounter Additional Health Concerns Assessment Noted Time PHQ-9 Depression Total Score: 0 09/23/19 24 9:24 AM EDT documented as of this encounter Care Teams Master Automotive Glass Technician Relationship Specialty Start Date End Date Karon Powell FNP [address] [place] [phone] PCP - General Family Medicine 11/03/21 documented as of this encounter
--- OUTSIDE RECORDS SUMMARY | 2024-07-18 09:47 | XMS_ITS | Encounter Summary ---
Author Organization [employer] Address [address] [facility] [address]t [place] [address] Care Team Providers Care Quality Assurance Auditor Name Role Phone [facility] Primary Care Provider [phone] Encounter Details Date Type Department Care Team ([facility] st Contact Info) Description 05/11/2023 Orders Only [facility] [address] [place], [place] [phone] [facility] [address] [place] [address] Social History Tobacco Use Types Packs/Day Years Used Date Smoking Tobacco: Never Passive Smoke Exposure: Never Smokeless Tobacco: Never Alcohol Use Standard Drinks/Week Comments Yes 6 (1 standard drink = 0.6 oz pur e alcohol) Depression Answer Date Recorded Patient Health Questionnaire-9 Score 0 12/02/2022 Housing Stability Answer Date Recorded What is your housing situation today? I have deloris camargo 02/24/[address] you li ve. Do you have problems with any of the following? None of the above 02/24/2023 Food Insecurity Answer Date Recorded Within the past 12 months, y ou worried that your food would run out before you got money to buy more: Never True 02/24/2023 Within the past 12 months,th e food you bought just didn't last and you didn't have enough money to get more: Never True Transportation Answer Date Recorded In the past 12 months, has l ack of transportation kept you from medical appts, meetings, work or from getting things needed for daily living? No 02/24/2023 Utilities Answer Date Recorded In the past 12 months, has t he electric, gas, oil or water [employer] threatened to shut off services in your home? No 02/24/2023 Depression Answer Date Recorded Patient Health Questionnaire-2 Score 0 12/02/2022 Comments No Sex and Gender Information Value [...] Description 08/03/2024 11:00 AM EDT Office Visit [facility] [address] [place] [address] Gustavo Pa, MECHE [address] [place] [address] 08/07/2024 1:45 PM EDT Procedure Visit [facility] [address] [place] [address] Ene Elmore, RJ [address] [place] [address] documented as of this encounter Visit Diagnoses Not on filedocumented in this encounter Additional Health Concerns Assessment Noted Time PHQ-9 Depression Total Score: 0 12/03/19 23 2:52 PM EDT documented as of this encounter Care Teams Quality Assurance Auditor Relationship Specialty Start Date End Date Karon Powell FNP [address] [place] [address] PCP - General Family Medicine 11/03/21 documented as of this encounter
--- OUTSIDE RECORDS SUMMARY | 2024-07-18 09:47 | XMS_ITS | Encounter Summary ---
Author Organization [employer] Address [address] [facility] 7[address] [place] [address] Care Team Providers Care Mule Rider Name Role Phone Karon Powell MOLD REPAIR TECHNICIAN Primary Care Provider [phone] Encounter Details Date Type Department Care Team (Late st Contact Info) Description 11/25/2023 1:30 PM EDT Office Visit [facility] [address] [place], [place] [phone] Gustavo Pa, MECHE [address] [place], [place] [phone] Social History Tobacco Use Types Packs/Day Years [...] AM EDT documented as of this encounter Progress Notes * Gustavo Pa DMD - 11/25/2023 1:30 PM EDT C/C: still sensitive #3 after RCT#3 I.O.E: extreme sensitive to percussion of #3, intact temp filling #3, no sign of broken filling E.O.E: wnl Radiographic: existing RCT looks wnl Follow up with Dr. Brambila on existing RCT#3 before proceeding to core build up and crown Gualberto documented in this encounter Plan of Treatment Upcoming Encounters Date Type Department Care Team (Late st Contact Info) Description 08/03/2024 11:00 AM EDT Office Visit [facility] [address] [place] [address] Gustavo Pa DMD [address] [place] [address] 08/07/2024 1:45 PM EDT Procedure Visit [facility] [address] [place] [address] Ene Elmore CNM [address] [place] [address] documented as of this encounter Procedures Procedure Name Priority Date/Time Associated Diagnosis Comments NO CHARGE VISIT Routine 11/25/2023 1:30 PM EDT documented in this encounter Visit Diagnoses Not on filedocumented in this encounter Additional Health Concerns Assessment Noted Time PHQ-9 Depression Total Score: 0 09/23/19 24 9:24 AM EDT documented as of this encounter Care Teams Mule Rider Relationship Specialty Start Date End Date Karon Powell FNP [address] [place] [address] PCP - General Family Medicine 11/03/21 documented as of this encounter
--- OUTSIDE RECORDS SUMMARY | 2024-07-18 09:47 | XMS_ITS | Encounter Summary ---
Author Organization [employer] Address [address] [facility] 7[address] [place] [address] Care Team Providers Care Spray Mixer Name Role Phone Karon Powell EXPERIMENTAL WELDER Primary Care Provider [phone] Encounter Details Date Type Department Care Team (Late st Contact Info) Description 01/03/2024 Orders Only [facility] [address] [place], [place] [phone] Ysabel Thakkar FNP [address] [place], [place] [phone] Social History Tobacco Use Types Packs/Day Years [...] Recorded Patient Health Questionnaire-2 Score 0 09/23/2023 Comments No Sex and Gender Information Value [...] Description 08/03/2024 11:00 AM EDT Office Visit [facility] [address] [place] [address] Gustavo Pa, DMD [address] [place] [address] 08/07/2024 1:45 PM EDT Procedure Visit [facility] [address] [place] [address] Ene Elmore, RJ [address] [place] [address] documented as of this encounter Visit Diagnoses Not on filedocumented in this encounter Additional Health Concerns Assessment Noted Time PHQ-9 Depression Total Score: 0 09/23/19 24 9:24 AM EDT documented as of this encounter Care Teams Spray Mixer Relationship Specialty Start Date End Date Karon Powell FNP 230 [place] [address] PCP - General Family Medicine 11/03/21 documented as of this encounter
--- OUTSIDE RECORDS SUMMARY | 2024-07-18 09:47 | XMS_ITS | Encounter Summary ---
Author Organization [employer] Address [address] [facility] [address] [place] [address] Care Team Providers Care Wharf Hand Name Role Phone [facility] Primary Care Provider [phone] Encounter Details Date Type Department Care Team ([facility] st Contact Info) Description 05/06/2023 Orders Only [facility] [address] [place], [place] [phone] [facility] 230 [place], [place] [phone] Social History Tobacco Use Types Packs/Day Years [...] Description 08/03/2024 11:00 AM EDT Office Visit [facility] [address] [place] [address] Gustavo Pa, MECHE [address] [place] [address] 08/07/2024 1:45 PM EDT Procedure Visit [facility] [address] [place] [address] Ene Elmore, RJ [address] [place] [address] documented as of this encounter Visit Diagnoses Not on filedocumented in this encounter Additional Health Concerns Assessment Noted Time PHQ-9 Depression Total Score: 0 12/03/19 23 2:52 PM EDT documented as of this encounter Care Teams Wharf Hand Relationship Specialty Start Date End Date Karon Powell FNP [address] [place] [address] PCP - General Family Medicine 11/03/21 documented as of this encounter
[2024-07-18 12:47] LABS: TSH reflex Free T4 4.36 uIU/mL (0.32-4.0)
[2024-07-18 14:36] LABS: Free T4 (Free Thyroxine) 0.96 ng/dL (0.71-1.85)
[2024-07-19 06:53] LABS: Prolactin 19.6 ng/mL
== END 2024-07-18 09:10 | disposition home or self-care (01) ==
LOC: HO.HHCL 09:09
PROVIDERS: Visit Provider Advanced Practice Midwife
DX: N64.3 Galactorrhea not associated with childbirth (principal)
CPT/HCPCS: 36415; 84146; 84439; 84443

== ENCOUNTER 2024-08-23 16:54 | Outpatient (REF) | payer MEDICAID, SELFPAY ==
--- OUTSIDE RECORDS SUMMARY | 2024-08-23 18:27 | XMS_ITS | Encounter Summary ---
Author Organization [employer] Address [address] [facility] 7[address] [place] [address] Care Team Providers Care Procurement Coordinator Name Role Phone Karon Powell CHIMNEY BUILDER BRICK Primary Care Provider [phone] Gustavo Pa DMD Unavailable Encounter Details Date Type Department Care Team (Late st Contact Info) Description 01/03/2024 Orders Only [facility] [address] [place], [place] [phone] Ysabel Thakkar FNP [address] [place], [place] [phone] Social History Tobacco Use Types Packs/Day Years [...] as of this encounter Plan of Treatment Not on file documented as of this encounter Visit Diagnoses Not on filedocumented in this encounter Additional Health Concerns Assessment Noted Time PHQ-9 Depression Total Score: 0 09/23/19 24 9:24 AM EDT documented as of this encounter Care Teams Procurement Coordinator Relationship Specialty Start Date End Date Karon Powell FNP [address] [place] [address] PCP - General Family Medicine 11/03/21 Gustavo Pa DMD 230 [place] [address] Dental Coremaker 07/26/24 documented as of this encounter
--- OUTSIDE RECORDS SUMMARY | 2024-08-23 18:27 | XMS_ITS | Encounter Summary ---
Author Organization [employer] Address [address] [facility] 7t [place] [address] Care Team Providers Care Pharmacy Clerk Name Role Phone Karon Powell PHYSICAL PLANT EMPLOYEE Primary Care Provider [phone] Gustavo Pa DMD Unavailable Reason for Visit * Reason Comments Vaginal Discharge Encounter Details Date Type Department Care Team ([facility] st Contact Info) Description 08/23/2024 9:40 AM EDT Office Visit [facility] [address] [place], [place] [phone] Princess Kaufman DO [address] [place], [place] [phone] Acute UTI (Primary Dx); Vaginal discharge Social History Tobacco Use Types Packs/Day Years [...] Sign Reading Time Taken Comments Blood Pressure 113/66 08/23/2024 9:26 AM EDT Pulse 56 08/23/2024 9:26 AM EDT Temperature 36.2 ??C (97.2 ??F) 08/23/2024 9:26 AM ED T Respiratory Rate 18 08/23/2024 9:26 AM EDT Oxygen Saturation 98% 08/23/2024 9:26 AM EDT Inhaled Oxygen Concentration - - Weight 53.6 kg (118 lb 3.2 oz) 08/23/2024 9:26 A M EDT Height - - Body Mass Index 20.61 05/23/2024 11:50 AM EST documented in this encounter Progress Notes * Princess Kaufman, - 08/23/2024 9:40 AM EDT RADAMES Eddy is a 24 y.o. female who presents for Sick Visit. She presents to [place] today c/o vaginal discharge x 5 days. She reports vaginal discharge for the last few days. She has h/o BV but this feels different. She denies any odor or vaginal itching. She c/o intermittent pain with urination. She denies any burning or odor. She says she is urinatinga smaller amount more frequently. She denies any hematuria. She has mild pelvic pain. No fevers. NoN/V. She says she is nervous because this vaginal discharge is different than her usual BV sx. LMP August 09. She is sexually active with partner of 5 mos. She uses vaginal ring for contraception. History provided by: Patient egg pasteurizer used: Yes UTI Onset quality: Sudden Timing: Intermittent Progression: Unchanged Chronicity: New Associated symptoms: no abdominal pain, no chest pain, no cough, no diarrhea, no fever, no headaches, no nausea, no shortness of breath and no vomiting Vaginal Discharge Quality: Thin and clear Severity: Mild Onset quality: Sudden Timing: Intermittent Progression: Unchanged Chronicity: New Context: recent antibiotic use Ineffective treatments: None tried Associated symptoms: dysuria Associated symptoms: no abdominal pain, no dyspareunia, no fever, no genital lesions, no nausea, nourinary incontinence, no vaginal itching and no vomiting Review of Systems Constitutional: Negative for activity change, appetite change, chills, fever and unexpected weight change. Respiratory: Negative for cough and shortness of breath. Cardiovascular: Negative for chest pain, palpitations and leg swelling. Gastrointestinal: Negative for abdominal pain, diarrhea, nausea and vomiting. Genitourinary: Positive for difficulty urinating, dysuria, frequency, menstrual problem, pelvic pain and vaginal discharge. Negative for bladder incontinence, dyspareunia and hematuria. Neurological: Negative for weakness and headaches. Patient Active Problem List Diagnosis Anxiety and depression Mild intermittent asthma Dysmenorrhea No Known Allergies OBJECTIVE Visit Vitals BP 113/66 (BP Location: Left arm, Patient Position: Sitting, BP Cuff Size: Adult) Pulse 56 Temp 97.2 ??F (36.2 ??C) (Temporal) Resp 18 Wt 118 lb 3.2 oz (53.6 kg) SpO2 98% BMI 20.61 kg/m?? OB Status Having periods Smoking Status Never BSA 1.55 m?? Physical Exam Constitutional: General: She is not in acute distress. Appearance: Normal appearance. Cardiovascular: Rate and Rhythm: Normal rate and regular rhythm. Heart sounds: Normal heart sounds. No murmur heard. Pulmonary: Effort: Pulmonary effort is normal. Breath sounds: Normal breath sounds. No wheezing or rhonchi. Abdominal: General: Bowel sounds are normal. Palpations: Abdomen is soft. There is no mass. Tenderness: There is no abdominal tenderness. There is no right CVA tenderness, left CVA tenderness, guarding or rebound. Neurological: General: No focal deficit present. Mental Status: She is alert and oriented to person, place, and time. Cranial Nerves: No cranial nerve deficit. Motor: No weakness. Gait: Gait normal. Psychiatric: Mood and Affect: Mood normal. Office Visit on 08/23/2024 Component Date Value Ref Range Status Color, UA 08/23/2024 Yellow Final Clarity, UA 08/23/2024 Clear Final Glucose, UA 08/23/2024 Negative Final Bilirubin, UA 08/23/2024 Negative Final Ketones, UA 08/23/2024 Negative Final Spec Grav, UA 08/23/2024 1.020 Final Blood, UA 08/23/2024 Positive (A) Negative, None Detected Final moderate pH, UA 08/23/2024 6.5 Final Protein, UA 08/23/2024 Negative Final Urobilinogen, UA 08/23/2024 1.0 Final Leukocytes, UA 08/23/2024 Negative Negative, Rare, Trace Final Nitrite, UA 08/23/2024 Negative Negative, None Detected Final Preg Test, Ur 08/23/2024 Negative Negative, Indeterminate, None Detected, Invalid, Specimen unsatisfactory for evaluation, Weakly Positive Final Assessment/Plan Diagnoses and all orders for this visit: Acute UTI -treat empirically with bactrim -send Ucx for sensitivities -advised contact C if sx do not resolve Vaginal discharge With h/o recurrent BV -send BV panel -send GC/CT -advised pt will treat pending results, she agrees with plans --Follow-up with PCP as scheduled or sooner prn-- Current Outpatient Medications: amoxicillin (Amoxil) 500 MG capsule, Take 1 tab po bid for 10 days, Disp: 20 capsule, Rfl: 0 benzoyl peroxide (PanOxyl Foaming Wash) 10 % external wash, Apply topically 2 times daily., Disp: 142 g, Rfl: 1 emtricitabine-tenofovir DF (Truvada) 200-300 MG tablet, Take 1 tablet by mouth at bed time., Disp: , Rfl: escitalopram (Lexapro) 5 MG tablet, Take 5 mg by mouth at bedtime., Disp: , Rfl: etonogestrel-ethinyl estradiol (NuvaRing) 0.12-0.015 MG/24HR vaginal ring, Insert vaginally and leave in place for 3 consecutive weeks, then remove for 1 week. Discard old ring. Repeat cycle., Disp: 1 Ring. , Rfl: 11 FLUoxetine (PROzac) 20 MG capsule, Take 20 mg by mouth in the morning., Disp: , Rfl: fluticasone (Flonase Allergy Relief) 50 MCG/ACT nasal spray, Administer 2 sprays into affected nostril(s) at bed time., Disp: , Rfl: hydrocortisone (Anusol-HC) 2.5 % rectal cream, Apply small quantity to skin around anus twice daily(Patient not taking: Reported on 08/29/2023), Disp: 28 g, Rfl: 0 loratadine (Claritin) 10 MG tablet, Take 1 tablet by mouth at bed time., Disp: , Rfl: Methylcellulose, Laxative, (Citrucel) 500 MG tablet, Take 2 capsules by mouth in the morning., Disp: , Rfl: polyethylene glycol, PEG, 3350 (MiraLax) 17 GM/SCOOP powder, Take 17 g by mouth 1 (one) time each day., Disp: , Rfl: Gnjsos-OL-Lklrymcv-Petrolatum 1-0.25-14.4-15 % cream, Apply to area 2x daily, Disp: , Rfl: sulfamethoxazole-trimethoprim (Bactrim DS) 800-160 MG tablet, Take 1 tablet by mouth 2 times daily for 3 days., Disp: 6 tablet, Rfl: 0 Scribe Attestation: Noah Carr, am serving as a scribe to document services personally performed by Princess Pablo, based on the patient's response to questions by provider and provider's statements to me. 08/23/24 12:10 PM Physicians Attestation: Princess Carr DO, have reviewed the information by the scribe, Noah Stewart, for accuracy and agree with its content. documented in this encounter Plan of Treatment Scheduled Orders Name Type Priority Associated Diagnoses Orde r Schedule Bacterial Vaginosis Panel Microbiology Routine Vaginal discharge Ordered: 08/23/2024 Chlamydia/N. Gonorrhoeae RNA, TMA, Urogenitial Microbiology Routine Vaginal discharge Ordered: 08/23/2024 Culture, Urine, Routine Microbiology Routine Vaginal discharge Ordered: 08/23/2024 documented as of this encounter Procedures Procedure Name Priority Date/Time Associated Diagnosis Comments POCT , URINE Routine 08/23/2024 10:14 AM EDT Vaginal discharge POCT URINALYSIS DIPSTICK Routine 08/23/2024 9:52 AM EDT Vaginal discharge documented in this encounter Results * POCT , urine manually resulted (08/23/2024 10:14 AM EDT) Preg Test, Ur Negative Negative, Indeterminate, None Detected, Invalid, Specimen unsatisfactory for evaluation, Weakly Positive Urine 08/23/2024 10:1 4 AM EDT Princess Kaufman DO POINT OF CARE TEST ENTER/IVORY T ORDERABLES Final Result * (ABNORMAL) POCT urinalysis dipstick manually resulted (08/23/2024 9:52 AM EDT) Color, UA Yellow Clarity, UA Clear Glucose, UA Negative Bilirubin, UA Negative Ketones, UA Negative Spec Grav, UA 1.020 Blood, UA Positive(A) Negative, None Detected Comment:moderate pH, UA 6.5 Protein, UA Negative Urobilinogen, UA 1.0 Leukocytes, UA Negative Negative, Rare, Trace Nitrite, UA Negative Negative, None Detected Urine 08/23/2024 9:52 AM EDT Add2paper DO POINT OF CARE TEST ENTER/IVORY T ORDERABLES Final Result documented in this encounter Visit Diagnoses Diagnosis Acute UTI- Primary Urinary tract infection, site not specified Vaginal discharge Leukorrhea, not specified as infective documented in this encounter Additional Health Concerns Assessment Noted Time PHQ-9 Depression Total Score: 0 09/23/19 24 9:24 AM EDT documented as of this encounter Care Teams Pharmacy Clerk Relationship Specialty Start Date End Date Karon Powell FNP [address] [place] [address] PCP - General Family Medicine 11/03/21 Gustavo Pa DMD [address] [place] [address] Dental Quality Engineering Manager 07/26/24 documented as of this encounter
--- OUTSIDE RECORDS SUMMARY | 2024-08-23 18:27 | XMS_ITS | Clinical Summary ---
Author Organization [employer] Address [address] [facility] 7t [place] [address] Care Team Providers Care Processes Chemical Design Engineer Name Role Phone Karon Powell TIN DIPPER Primary Care Provider [phone] YandelGustavo adames DMD Unavailable Allergies No known active allergies Medications emtricitabine-ten ofovir DF (Truvada) 200-300 MG tablet Take 1 tablet by mouth at bed time. 02/24/20 22 Active fluticasone (Flonase Allergy Relief) 50 MCG/ACT nasal spray Administer 2 sprays into affected nostril(s) at bed time. 12/25/19 22 Active loratadine (Claritin) 10 MG tablet Take 1 tablet by mouth at bed time. 12/25/19 22 Active Methylcellulose, Laxative, (Citrucel) 500 MG tablet Take 2 capsules by mouth in the morning. 10/22/19 22 Active polyethylene glycol, PEG, 3350 (MiraLax) 17 GM/SCOOP powder Take 17 g by mouth 1 (one) time each day. 10/22/19 22 Active Ynxkem-ZH-Ejkhlfn n-Petrolatum 1-0.25-14.4-15 % cream Apply to area 2x daily 10/22/19 22 Active hydrocortisone (Anusol-HC) 2.5 % rectal creamIndications: External hemorrhoids Apply small quantity to skin around anus twice daily 28 g 05/25/19 23 Active Additional Information Patient not taking.Reported on 08/29/2023 escitalopram (Lexapro) 5 MG tablet Take 5 mg by mouth at bedtime. 06/04/19 23 Active benzoyl peroxide (PanOxyl Foaming Wash) 10 % external washIndications:F olliculitis Apply topically 2 times daily. 142 g 1 09/23/19 24 025 Active FLUoxetine (PROzac) 20 MG capsule Take 20 mg by mouth in the morning. 09/13/19 24 Active etonogestrel-ethi nyl estradiol (NuvaRing) 0.12-0.015 MG/24HR vaginal ringIndications:E ncounter for surveillance of vaginal ring hormonal contraceptive device Insert vaginally and leave in place for 3 consecutive weeks, then remove for 1 week. Discard old ring. Repeat cycle. 1 Ring. 11 05/23/19 25 Active amoxicillin (Amoxil) 500 MG capsuleIndication s:Cough in adult patient Take 1 tab po bid for 10 days 20 capsule 08/15/19 25 Active sulfamethoxazole- trimethoprim (Bactrim DS) 800-160 MG tablet Take 1 tablet by mouth 2 times daily for 3 days. 6 tablet 08/24/19 25 025 Active carbamide peroxide (Debrox) 6.5 % otic solutionIndicatio ns:Cough in adult patient Administer 3-5 drops into affected ear(s) 2 times daily for 4 days. 15 mL 08/15/19 25 025 Active Problems Problem Noted Date Diagnosed Date [...] Encounters Date Type Department Care Team Description 08/23/2024 9:40 AM EDT Office Visit [facility] [address] [place] [phone] Princess Kaufman DO Acute UTI (Primary Dx); Vaginal discharge 08/14/2024 11:20 AM EDT Office Visit [facility] [address] [place] [address] Sofia Bee MD Right otitis media, unspecified otitis media type (Primary Dx); Cough in adult patient; Acute URI 08/07/2024 Telephone [facility] [address] [place] [phone] Ene Elmore CNM 07/26/2024 Orders Only [facility] [address] [place] [address] Ene Elmore CNM Galactorrhea (Primary Dx) 07/20/2024 Orders Only [facility] [address] [place] [address] Ene Elmore CNM Elevated TSH (Primary Dx) 07/20/2024 Population Health Risk Score [facility] () Department [address] [place] [phone] Provider, Population Health Generic 07/19/2024 Orders Only [facility] [address] [place] [phone] Ene Elmore CNM Galactorrhea (Primary Dx); Breast pain, right 07/18/2024 Orders Only [facility] [address] [place] [address] Ene Elmore CNM 07/17/2024 1:00 PM EDT Office Visit [address] [address] Ene Elmore CNM Galactorrhea (Primary Dx) 07/17/2024 Travel 06/15/2024 Telephone [facility] [address] [place] [address] [place] Karon [facility] No Show 06/04/2024 Patient Outreach [facility] [address] [place] [address] [place] [facility] Care Coordination (CHW outreach for SDOH foodn and utilities - LVM ) 06/04/2024 Patient Outreach [facility] [address] [place] [address] [place] [facility] Pre-visit Planning (SDOH screening negative and tobacco screening negative) from Last 3 Months Immunizations Name Administration [...] oz) 08/23/2024 9:26 A M EDT Height 161.3 cm (5' 3.5 ) 05/23/2024 11:50 AM ES T Body Mass Index 20.61 05/23/2024 11:50 AM EST Plan of Treatment Health Maintenance Due Date Last Done Comments Dental Prophylaxis 1999 Alcohol/Substance Use Screening 2011 Pneumococcal Vaccine: Pediatrics (0 to 5 Years) and At-Risk Patients (6 to 49) Years) (1 of 2 - PCV) 2018 Dental Oral Exam 10/26/2023 04/25/2023 Pap Smear 11/29/2023 11/28/2020 COVID-19 Vaccine (2023- season) 2024 01/07/2022, 12/04/2021 Influenza Vaccine (#1) 2024 , 04/18/2018, 04/05/2017, Additional history exists Depression Screening 09/22/2024 09/23/2023, 09/23/19 Dental X-Ray: Bitewings 12/05/2024 12/05/19 24, 04/25/2023, 04/13/2022 SDOH Screening 06/04/2025 06/04/2024 Family Planning (PISQ) 07/17/2025 07/17/2024 Tobacco Screening 08/23/2025 08/23/2024 Dental X-Ray: Full Mouth 04/26/2026 04/25/2023 DTaP/Tdap/Td [...] Routine 08/23/2024 9:52 AM EDT Vaginal discharge POCT INFLUENZA B (ID NOW RAPID MOLECULAR) Routine 08/14/2024 10:48 AM EDT Cough in adult patient POCT INFLUENZA A (ID NOW RAPID MOLECULAR) Routine 08/14/2024 10:48 AM EDT Cough in adult patient POCT RAPID COVID ANTIGEN Routine 08/14/2024 10:40 AM EDT Cough in adult patient T4, FREE Routine 07/18/2024 9:12 AM EDT TSH W/REFLEX TO FT4 Routine 07/18/2024 9 :12 AM EDT Galactorrhea PROLACTIN Routine 07/18/2024 12:00 AM EDT Galactorrhea POCT , URINE Routine 07/17/2024 1:18 PM EDT Galactorrhea HEPATITIS C AB W/REFL TO HCV RNA, [...] urine manually resulted (08/23/2024 10:14 AM EDT) Only the most recent of2 resultswithin [...] None Detected Urine 08/23/2024 9:52 AM EDT Princess Kaufman DO POINT OF CARE TEST ENTER/IVORY T ORDERABLES Final Result * Influenza B (ID NOW Rapid Molecular) (08/14/2024 10:48 AM EDT) [facility] Influenza B Negative Negative, Indeterminate [facility] Swab 08/14/2024 10:4 8 AM EDT Sofia Bee MD POINT OF CARE TEST ENTER/E DIT ORDERABLES Final Result Performing Organization Address City/[facility]/ZIP Co de Phone Number [facility] [address] [place] [phone] * Influenza A (ID NOW Rapid Molecular) (08/14/2024 10:48 AM EDT) [facility] Influenza A Negative Negative, Indeterminate [facility] Swab 08/14/2024 10:4 8 AM EDT Sofia Bee MD POINT OF CARE TEST ENTER/E DIT ORDERABLES Final Result Performing Organization Address [facility] Co de Phone Number [facility] [address] [place] [phone] * POCT Rapid COVID Ag (08/14/2024 10:40 AM EDT) [facility] Rapid COVID Ag Negative Swab 08/14/2024 10:4 0 AM EDT Sofia Bee MD POINT OF CARE TEST ENTER/E DIT ORDERABLES Final Result * (ABNORMAL) TSH W/Reflex to FT4 (07/18/2024 9:12 AM EDT) TSH reflex Free T4 4.36(H) 0.32 - 4.0 uIU/mL [facility] Blood Venous blood specimen / Unknown 07/18/2024 9:12 AM EDT 07/18/2024 11:40 AM EDT [facility]AB[facility] Marisel l Result [facility] [address] [place] [address] [phone] * T4, Free (07/18/2024 9:12 AM EDT) Free T4 (Free Thyroxine) 0.96 0.71 - 1.85 ng/dL [facility] 07/18/2024 9:12 AM EDT 07/18/2024 11:40 AM EDT [facility] BLOOD ORDERABLES Marisel l Result Performing Organization Address City/[facility]/ZIP Co de Phone Number [facility] [address] [place] [address] [phone] * Prolactin (07/18/2024 12:00 AM EDT) Prolactin 19.6 ng/mL [facility] Comment:Reference Range Fema les Non- 3.0-30.0 10.0-209.0 Postmenopausal 2.0-20.0THIS TEST WAS PERFORMED AT:[employer] [place] [phone] KAMINSKI MD Blood Venous blood specimen / Unknown 07/18/2024 07/18/2024 [facility] LAB BLOOD ORDERABLES Marisel l Result Performing Organization Address [facility] Co de Phone Number [facility] [address] [place] [address] [phone] * Hepatitis C Antibody with Reflex to HCV, RNA, Quantitative, Real-Time PCR (02/17/2024 10:10 AM EDT) Hepatitis C Antibody Nonreactive Nonreactive [facility] Comment:Antibodies to HCV no t detected; does not exclude early acuteHCV infection. Blood Venous blood specimen / Unknown 02/17/2024 10:10 AM EDT 02/17/2024 11:09 AM EDT Princess Kaufman DO LAB BLOOD ORDERABLES Final R esult Performing Organization Address [facility] Co de Phone Number [facility] [address] [place] [phone] * HIV-1/2 Antigen and Antibodies, Fourth Generation, with Reflexes (02/17/2024 10:10 AM EDT) HIV AB/AG Nonreactive Nonreactive [facility] Comment:HIV-1 p24 Ag and/or HIV-1/HIV-2 Ab not detected.A test result that is nonreactive does not exclude thepossibility of exposure to or infection with HIV-1 and/orHIV-2. Nonreactive results in this assay for individualswith prior exposure to HIV-1 and/or HIV-2 may be due toantigen and antibody levels that are below the limit ofdetection of this assay.[employer] HIV Ag/Ab Combo assay result andsupplemental assay results should be interpreted inconjunction with the patient's clinical presentation,history and other laboratory results. If the results areinconsistent with clinical evidence, additional testing issuggested to confirm the result. Blood Venous blood specimen / Unknown 02/17/2024 10:10 AM EDT 02/17/2024 11:09 AM EDT us Princess Kaufman DO LAB BLOOD ORDERABLES Final R esult [facility] [address] [place] [phone] [phone] * Pap Smear (11/28/2020 12:00 AM EDT) Swab us Historical Provider LAB CYTOLOGY ORDERABLES F inal Result Performing Organization Address City/[facility]/ZIP Co de Phone Number [facility] [address] [place] [address] [phone] from Last 3 Months or Most Recently Relevant to Health Maintenance Insurance [facility] C3 DENTAL-[facility] [place] [phone] DENTAL - HSN PARTIAL (MEDICAID) Care Teams Processes Chemical Design Engineer Relationship Specialty Start Date End Date Karon Powell FNP [address] [place] [address] PCP - General Family Medicine 11/03/21 Gustavo Pa DMD [address] [place], [place] [phone] Dental Roll Former 07/26/24
--- OUTSIDE RECORDS SUMMARY | 2024-08-23 18:27 | XMS_ITS | Encounter Summary ---
Author Organization [employer] Address [address] [facility] 7[address] [place] [address] Care Team Providers Care Gaming Investigator Name Role Phone Sherry, [facility] Primary Care Provider [phone] Gustavo Pa DMD Unavailable Encounter Details Date Type Department Care Team (Late st Contact Info) Description 05/11/2023 Orders Only [facility] [address] [place], [place] [phone] [place] Karon [facility] [address] [place], [place] [phone] Social History Tobacco Use Types Packs/Day Years [...] documented as of this encounter Care Teams Gaming Investigator Relationship Specialty Start Date End Date Karon Powell FNP [address] [place] [address] PCP - General Family Medicine 11/03/21 Gustavo Pa DMD [address] [place] [address] Dental Accounts Payable Clerk 07/26/24 documented as of this encounter
--- OUTSIDE RECORDS SUMMARY | 2024-08-23 18:27 | XMS_ITS | Encounter Summary ---
Author Organization [employer] Address [address] [facility] [address]t [place] [address] Care Team Providers Care Civil Engineer In Training Name Role Phone Karon Powell [facility] Primary Care Provider [phone] Gustavo Pa DMD Unavailable Encounter Details Date Type Department Care Team (Late st Contact Info) Description 05/06/2023 Orders Only [facility] [address] [place], [place] [phone] [place] Karon [facility] [address] [place], [place] [phone] Social History Tobacco Use Types Packs/Day Years [...] documented as of this encounter Care Teams Civil Engineer In Training Relationship Specialty Start Date End Date Karon Powell FNP [address] [place] [address] PCP - General Family Medicine 11/03/21 Gustavo Pa DMD [address] [place] [address] Dental Tool Lapper Hand 07/26/24 documented as of this encounter
--- OUTSIDE RECORDS SUMMARY | 2024-08-23 18:27 | XMS_ITS | Clinical Summary ---
Author Organization [facility] Address [address] [place] [address] Care Team Providers Care [employer] Name Role Phone Unavailable Primary Care Provider [...] - 2023-2 5 season) 2024 Influenza Vaccine (Season Ended) 2025 HIB Vaccines Aged Out No longer eligi [...] age to complete this topic Meningococcal B Vaccine Aged Out No l onger eligible based on patient's age to complete [...]
--- OUTSIDE RECORDS SUMMARY | 2024-08-23 18:27 | XMS_ITS | Encounter Summary ---
Author Organization [employer] [facility] Address [address] [place] [address] 7t [place] [address] Care Team Providers Care Corporate Strategy Analyst Name Role Phone Karon Powell [facility] Primary Care Provider [phone] Gustavo Pa DMD Unavailable Reason for Visit * Reason Onset Date Comments Results 05/14/2022 triage 05/14/2022 Encounter Details Date Type Department Care Team ([facility] st Contact Info) Description 05/14/2022 Telephone [facility] [address] [place], [place] [phone] [place] Karon [facility] [address] [place], [place] [phone] Results; triage Social History Tobacco Use Types [...] lab work results Please contact pt at [phone] documented in this encounter Plan of Treatment Not on file documented as of this encounter Visit Diagnoses Not on filedocumented in this encounter Care Teams Corporate Strategy Analyst Relationship Specialty Start Date End Date SherryKaron bishop FNP [address] [place] [address] PCP - General Family Medicine 11/03/21 Gustavo Pa DMD [address] [place], [place] [phone] Dental Physicist [place] 07/26/24 documented as of this encounter
[2024-08-24 14:05] LABS: CT PCR NOT DETECTED (Not Detect.); NG PCR NOT DETECTED (Not Detect.)
[2024-08-24 16:19] LABS: Bacterial Vaginosis PCR NEGATIVE (Negative); Candida Group PCR NOT DETECTED (Not Detect); Candida glab krusei PCR NOT DETECTED (Not Detect); Trichomonas vaginalis PCR NOT DETECTED (Not Detect)
== END 2024-08-23 16:55 | disposition home or self-care (01) ==
LOC: HO.HHCLNP 16:54
PROVIDERS: Visit Provider Family Medicine
DX: N89.8 Other specified noninflammatory disorders of vagina (principal)
CPT/HCPCS: 81515; 87086; 87491; 87591

== ENCOUNTER 2024-08-31 16:30 | Outpatient (REF) | payer MEDICAID, SELFPAY ==
--- OUTSIDE RECORDS SUMMARY | 2024-08-31 16:34 | XMS_ITS | Clinical Summary ---
Author Organization [employer] Address 75 [facility] 7t [place] [address] Care Team Providers Care Rfid Strategist Name Role Phone Karon Powell PROCESS CONTROLS TECHNICIAN Primary Care Provider [phone] YandelGustavo adames DMD Unavailable Allergies No known [...] (one) time each day. 10/22/19 22 Active Bowjii-DZ-Ftlrvuw n-Petrolatum 1-0.25-14.4-15 % cream Apply to area [...] 10 days 20 capsule 08/15/19 25 Active amoxicillin-clavu lanate (Augmentin) 875-125 MG tabletIndications :Recurrent acute suppurative otitis media of right ear without spontaneous rupture of tympanic membrane Take 1 tablet by mouth 2 times daily for 10 days. 20 tablet 09/01/19 25 025 Active carbamide peroxide (Debrox) 6.5 % otic solutionIndicatio ns:Cough in adult patient Administer 3-5 drops into affected ear(s) 2 times daily for 4 days. 15 mL 08/15/19 25 025 sulfamethoxazole- trimethoprim (Bactrim DS) 800-160 MG tablet Take 1 tablet by mouth 2 times daily for 3 days. 6 tablet 08/24/19 25 025 Active Problems Problem Noted Date Diagnosed Date Recurrent acute suppurative otitis media of right ear without spontaneous rupture of tympanic membrane 08/31/2024 Pelvic pain 08/31/2024 Vaginal discharge 08/31/2024 Irregular periods 08/31/2024 Dysmenorrhea 07/04/2023 Assessment & Plan (07/04/2023 5:47 [...] Encounters Date Type Department Care Team Description 08/31/2024 3:00 PM EDT Office Visit [facility] [address] [place] [phone] Recurrent acute suppurative otitis media of right ear without spontaneous rupture of tympanic membrane (Primary Dx); UTI symptoms; Pelvic pain; Vaginal discharge; Irregular periods 08/23/2024 9:40 AM EDT Office Visit [facility] [address] [place] [address] Princess Kaufman DO Acute UTI (Primary Dx); Vaginal discharge 08/14/2024 11:20 AM EDT Office Visit [facility] [address] [place] [phone] Sofia Bee MD Right otitis media, unspecified otitis media type (Primary Dx); Cough in adult patient; Acute URI 08/07/2024 Telephone [facility] MEDICINE [address] [place] [address] Ene Elmore CNM 07/26/2024 Orders Only [facility] MED[facility]INE [address] [place] [address] Ene Elmore CNM Galactorrhea (Primary Dx) 07/20/2024 Orders Only [address] [address] Ene Elmore CNM Elevated TSH (Primary Dx) 07/20/2024 Population Health Risk Score [facility] Department [address] [place] [phone] Provider, Population Health Generic 07/19/2024 Orders Only [facility] [place] [address] Ene Elmore CNM Galactorrhea (Primary Dx); Breast pain, right 07/18/2024 Orders Only [facility] [place] [address] Ene Elmore CNM 07/17/2024 1:00 PM EDT Office Visit [facility] [place] [address] Ene Elmore CNM Galactorrhea (Primary Dx) 07/17/2024 Travel 06/15/2024 Telephone [facility] [place] [place] [address] Karon Powell FNP No Show 06/04/2024 Patient Outreach [facility] [place] [address] Karon Powell FNP Care Coordination (CHW outreach for SDOH foodn and utilities - LVM ) 06/04/2024 Patient Outreach [facility] [place] [address] Karon Powell FNP Pre-visit Planning (SDOH screening [...] Sign Reading Time Taken Comments Blood Pressure 107/64 08/31/2024 2:47 PM EDT Pulse 78 08/31/2024 2:47 PM EDT Temperature 36.6 ??C (97.8 ??F) 08/31/2024 2:47 PM ED T Respiratory Rate 17 08/31/2024 2:47 PM EDT Oxygen Saturation 98% 08/31/2024 2:47 PM EDT Inhaled Oxygen Concentration - - Weight 56.1 kg (123 lb 9.6 oz) 08/31/2024 2:47 P M EDT Height 161.3 cm (5' 3.5 ) 05/23/2024 11:50 AM ES T Body Mass Index 21.55 05/23/2024 11:50 AM EST Plan of Treatment Upcoming Encounters Date Type Department Care Team (Late st Contact Info) Description 09/25/2024 2:45 PM EDT Office Visit [facility] MEDICINE [address] [place] [address] Ene Elmore, CNM [address] [place] [address] 11/07/2024 2:00 PM EDT Office Visit [facility] MED[facility]INE [address] [place] [address] [place], Karon, PROCESS CONTROLS TECHNICIAN [address] [place], [place] [phone] Health Maintenance Due Date Last Done Comments Dental Prophylaxis 1999 Alcohol/Substance Use Screening 2011 Pneumococcal Vaccine: Pediatrics (0 to 5 Years) and At-Risk Patients (6 to 49) Years) (1 of 2 - PCV) 2018 Dental Oral Exam 10/26/2023 04/25/2023 Pap Smear 11/29/2023 11/28/2020 COVID-19 Vaccine ( season) 2024 01/07/2022, 12/04/2021 Influenza Vaccine (#1) [...] Name Priority Date/Time Associated Diagnosis Comments POCT URINALYSIS DIPSTICK Routine 08/31/2024 2:59 PM EDT UTI symptoms POCT , URINE Routine 08/23/2024 10:14 AM EDT Vaginal discharge POCT URINALYSIS DIPSTICK Routine 08/23/2024 9:52 AM EDT Vaginal discharge CULTURE, URINE, ROUTINE Routine 08/23/2024 9:52 AM EDT Vaginal discharge CHLAMYDIA/N. GONORRHOEAE RNA, TMA, UROGENITAL Routine 08/23/2024 9:52 AM EDT Vaginal discharge BACTERIAL VAGINOSIS PANEL Routine 08/23/2024 9:52 AM EDT Vaginal discharge [...] Recently Relevant to Health Maintenance Results * (ABNORMAL) POCT urinalysis dipstick manually resulted (08/31/2024 2:59 PM EDT) Only the most recent of2 resultswithin the time period is included. Color, UA Yellow Clarity, UA Clear Glucose, UA Negative Bilirubin, UA Negative Ketones, UA Negative Spec Grav, UA 1.010 Blood, UA Positive(A) Negative, None Detected Comment:Large pH, UA 7.0 Protein, UA Negative Urobilinogen, UA 0.2 Leukocytes, UA Negative Negative, Rare, Trace Nitrite, UA Negative Negative, None Detected Urine 08/31/2024 2:59 PM EDT us Ele Schneider MD POINT OF CARE TEST EN TER/EDIT ORDERABLES Final Result * POCT , urine manually resulted (08/23/2024 10:14 AM EDT) Only the most recent of2 resultswithin the time period is included. Pathologist [facility] Preg Test, Ur Negative Negative, Indeterminate, None Detected, Invalid, Specimen unsatisfactory for evaluation, Weakly Positive Urine 08/23/2024 10:1 4 AM EDT Princess Kaufman DO POINT OF CARE TEST ENTER/IVORY T ORDERABLES Final Result * Bacterial Vaginosis Panel (08/23/2024 9:52 AM EDT) [facility] TRICHOMONAS VAGINALIS DETECTION BY PCR NOT DETECTED Not Detect [facility] BACTERIAL VAGINOSIS DETECTION BY PCR NEGATIVE Negative [facility] Comment:The BV organism targ ets [...] DETECTION BY PCR NOT DETECTED Not Detect [facility] Tata glab krusei PCR NOT DETECTED Not Detect [facility] Swab Vaginal structure / Unknown 08/23/2024 9:52 AM EDT 08/23/2024 4:56 PM EDT Princess Kaufman DO LAB MICROBIOLOGY - GENERAL O RDERABLES Final Result [facility] [address] [place] [phone] * Chlamydia/N. Gonorrhoeae RNA, TMA, Urogenitial (08/23/2024 9:52 AM EDT) [facility] CT PCR NOT DETECTED Not Detect. [facility] Comment:A not detected test result does not exclude the possibilityof infection because test results can be affected byimproper specimen collection, concurrent antibiotic therapy,or the number of organisms in the specimen which may bebelow the sensitivity of the test. As with many diagnostictests, results from the Xpert CT/NG assay should beinterpreted in conjunction with other laboratory andclinical data available to the clinician.Xpert CT/NG performance has not been evaluated in patientsless than 14 years of age. The assay should not be used forthe evaluationof suspected sexual abuse or for other medico-legalindications. Additional testing is recommended in anycircumstance when false positive or false negative resultscould lead to adverse medical, social or psychologicalconsequences. NG PCR NOT DETECTED Not Detect. [facility] Comment:A not detected test result does not exclude the possibilityof infection because test results can be affected byimproper specimen collection, concurrent antibiotic therapy,or the number of organisms in the specimen which may bebelow the sensitivity of the test. As with many diagnostictests, results from the Xpert CT/NG assay should beinterpreted in conjunction with other laboratory andclinical data available to the clinician.Xpert CT/NG performance has not been evaluated in patientsless than 14 years of age. The assay should not be used forthe evaluationof suspected sexual abuse or for other medico-legalindications. Additional testing is recommended in anycircumstance when false positive or false negative resultscould lead to adverse medical, social or psychologicalconsequences. Swab (Vaginal Swab) 08/23/2024 9:52 AM EDT 08/23/2024 4:56 PM EDT Narrative [facility] - 08/24/2024 2:06 PM EDT Vaginal us Princess Kaufman DO LAB MICROBIOLOGY - GENERAL O RDERABLES Final Result [facility] [address] [place] [phone] * Culture, Urine, Routine (08/23/2024 9:52 AM EDT) Urine Urine specimen obtained by clean catch procedure / Unknown 08/23/2024 9:52 AM EDT 08/23/2024 4:56 PM EDT Comment:UACC Narrative [facility] - 08/25/2024 11:45 AM EDT Urine Culture No growth. Specimen Source: Urine clean catch Princess Kaufman DO LAB MICROBIOLOGY - GENERAL O RDERABLES Final Result Performing Organization Address [facility] Co de Phone Number [facility] [address] [place] [phone] * Influenza B (ID NOW Rapid Molecular) (08/14/2024 10:48 AM EDT) [facility] Influenza B Negative Negative, Indeterminate [facility] Swab 08/14/2024 10:4 8 AM EDT Sofia Bee MD POINT OF CARE TEST ENTER/E DIT ORDERABLES Final Result Performing Organization Address [facility] Co de Phone Number [facility] [address] [place] [phone] * Influenza A (ID NOW Rapid Molecular) (08/14/2024 10:48 AM EDT) [facility] Influenza A Negative Negative, Indeterminate [facility] Swab 08/14/2024 10:4 8 AM EDT Sofia Bee MD POINT OF CARE TEST ENTER/E DIT ORDERABLES Final Result Performing Organization Address [facility] Co de Phone Number [facility] [address] [place] [phone] * POCT Rapid COVID Ag (08/14/2024 10:40 AM EDT) Pathologist [facility] Rapid COVID Ag Negative Swab 08/14/2024 10:4 0 AM EDT Sofia Bee MD POINT OF CARE TEST ENTER/E DIT ORDERABLES Final Result * (ABNORMAL) TSH W/Reflex to FT4 (07/18/2024 9:12 AM EDT) TSH reflex Free T4 4.36(H) 0.32 - 4.0 uIU/mL [facility] Blood Venous blood specimen / Unknown 07/18/2024 9:12 AM EDT 07/18/2024 11:[address] [facility] BLOOD ORDERABLES Marisel l Result Performing Organization Address City/[facility]/ZIP Co de Phone Number [facility] [address] [place] [phone] * T4, Free (07/18/2024 9:12 AM EDT) Pathologist [facility] Free T4 (Free Thyroxine) 0.96 0.71 - 1.85 ng/dL [facility] 07/18/2024 9:12 AM EDT 07/18/2024 11:[address] [facility] BLOOD ORDERABLES Marisel l Result Performing Organization Address City/[facility]/ZIP Co de Phone Number [facility] [address] [place] [phone] * Prolactin (07/18/2024 12:00 AM EDT) Pathologist [facility] Prolactin 19.6 ng/mL [facility] Comment:Reference Range Fema les Non- 3.0-30.0 10.0-209.0 Postmenopausal 2.0-20.0THIS TEST WAS PERFORMED AT:[facility] [place] [phone] KAMINSKI MD Blood Venous blood specimen / Unknown 07/18/2024 07/18/2024 Ene HUANG LAB BLOOD ORDERABLES Marisel l Result Performing Organization Address [facility] Co de Phone Number [facility] [address] [place] [phone] * Hepatitis C Antibody with Reflex to HCV, RNA, Quantitative, Real-Time PCR (02/17/2024 10:10 AM EDT) Hepatitis C Antibody Nonreactive Nonreactive [facility] Comment:Antibodies to HCV no t detected; does not exclude early acuteHCV infection. Blood Venous blood specimen / Unknown 02/17/2024 10:10 AM EDT 02/17/2024 11:09 AM EDT Princess Kaufman DO LAB BLOOD ORDERABLES Final R esult Performing Organization Address [facility] Co de Phone Number [facility] [address] [place] [phone] * HIV-1/2 Antigen and Antibodies, Fourth Generation, with Reflexes (02/17/2024 10:10 AM EDT) HIV AB/AG Nonreactive Nonreactive [facility] Comment:HIV-1 p24 Ag and/or HIV-1/HIV-2 Ab not detected.A test result that is nonreactive does not exclude thepossibility of exposure to or infection with HIV-1 and/orHIV-2. Nonreactive results in this assay for individualswith prior exposure to HIV-1 and/or HIV-2 may be due toantigen and antibody levels that are below the limit ofdetection of this assay.The Plum ([employer]niSpockly HIV Ag/Ab Combo assay result andsupplemental assay results should be interpreted inconjunction with the patient's clinical presentation,history and other laboratory results. If the results areinconsistent with clinical evidence, additional testing issuggested to confirm the result. Blood Venous blood specimen / Unknown 02/17/2024 10:10 AM EDT 02/17/2024 11:09 AM EDT Princess Kaufman DO LAB BLOOD ORDERABLES Final R esult [facility] [address] [place] [phone] * Pap Smear (11/28/2020 12:00 AM EDT) Swab us Historical Provider LAB CYTOLOGY ORDERABLES F inal Result Performing Organization Address City/[facility]/ZIP Co de Phone Number [facility] [address] [place] [phone] from Last 3 Months or Most Recently Relevant to Health Maintenance Insurance [facility] C3 DENTAL-[facility] MEDICAID STAND ADULT DENTAL - HSN PARTIAL (MEDICAID) Care Teams Rfid Strategist Relationship Specialty Start Date End Date Karon Powell FNP [address] [place] [address] PCP - General Family Medicine 11/03/21 Gustavo Pa DMD [address] [place] [address] Dental Lead Engineer 07/26/24
--- OUTSIDE RECORDS SUMMARY | 2024-08-31 16:34 | XMS_ITS | Encounter Summary ---
Author Organization [employer] Address 75 [facility] 7t [place] [address] Care Team Providers Care Ep Specialist Name Role Phone Karon Powell FIBERGLASS MACHINE OPERATOR Primary Care Provider [phone] Gustavo Pa DMD Unavailable Encounter Details Date Type Department Care Team (Late st Contact Info) Description 01/03/[address] [facility] [address] [place], [place] [phone] Ysabel Thakkar FNP [address] [place], [place] [phone] Social History Tobacco Use Types Packs/Day Years [...] Description 09/25/2024 2:45 PM EDT Office Visit [facility] MEDICINE [address] [place] [phone] Ene Elmore CNM [address] [place] [address] 11/07/2024 2:00 PM EDT Office Visit [facility] MED[facility] [address] [place] [phone] Karon Powell FNP [address] [place] [address] documented as of this encounter Visit Diagnoses Not on filedocumented in this encounter Additional Health Concerns Assessment Noted Time PHQ-9 Depression Total Score: 0 09/23/19 24 9:24 AM EDT documented as of this encounter Care Teams Ep Specialist Relationship Specialty Start Date End Date Karon Powell FNP [address] [place] [phone] PCP - General Family Medicine 11/03/21 Gustavo Pa DMD [address] [place] [phone] Dental Telegraph Office Manager 07/26/24 documented as of this encounter
--- OUTSIDE RECORDS SUMMARY | 2024-08-31 16:34 | XMS_ITS | Encounter Summary ---
Author Organization [employer] Address 75 [facility] 7t [place] [address] Care Team Providers Care Director Of Parks And Recreation Name Role Phone Karon Powell [facility] Primary Care Provider [phone] Gustavo Pa DMD Unavailable Encounter Details Date Type Department Care Team (Late st Contact Info) Description 05/06/2023 Orders Only [facility] MEDICINE [address] [place], [place] [phone] [place] Karon [facility] [address] [place], [place] [phone] Social History Tobacco Use Types Packs/Day Years [...] Description 09/25/2024 2:45 PM EDT Office Visit [facility] MEDIC[facility] [address] [place] [address] nEe Elmore CNM [address] [place] [address] 11/07/2024 2:00 PM EDT Office Visit [facility] [address] [place] [address] Karon Powell FNP [address] [place] [address] documented as of this encounter Visit Diagnoses Not on filedocumented in this encounter Additional Health Concerns Assessment Noted Time PHQ-9 Depression Total Score: 0 12/03/19 23 2:52 PM EDT documented as of this encounter Care Teams Director Of Parks And Recreation Relationship Specialty Start Date End Date Karon Powell FNP [address] [place] [phone] PCP - General Family Medicine 11/03/21 Gustavo Pa DMD [address] [place] [address] Dental Linoleum Mechanic 07/26/24 documented as of this encounter
--- OUTSIDE RECORDS SUMMARY | 2024-08-31 16:34 | XMS_ITS | Encounter Summary ---
Author Organization [employer] [facility] Address 75 [facility] 7t [place] [address] Care Team Providers Care Dining Room Hostess Name Role Phone Karon Powell FIELD ASSISTANT Primary Care Provider [phone] EmberGustavo MECHE Unavailable Reason for Referral * Consultation (Routine) - Pending Review Specialty Diagnoses / Procedures Referred By Contac t Referred To Contact Obstetrics and Gynecology Diagnoses Pelvic pain Vaginal discharge Irregular periods Ele Monroy MD [address] [place] [address] Phone: tel: fax: Referral ID Status Reason Start Date Expiration Date Visits Requested Visits Authorized [id number] Pending Review Specialty Services Required 08/31/2024 08/31/2025 1 1 * Consultation (Routine) - Pending Review Specialty Diagnoses / Procedures Referred By Contac t Referred To Contact Otolaryngology Diagnoses Recurrent acute suppurative otitis media of right ear without spontaneous rupture of tympanic membrane Ele Monroy MD [address] [place] [address] Phone: tel: fax: Referral ID Status Reason Start Date Expiration Date Visits Requested Visits Authorized [id number] Pending Review Specialty Services Required 08/31/2024 08/31/2025 1 1 Reason for Visit * Reason Comments Earache uti symptoms Encounter Details Date Type Department Care Team (Late st Contact Info) Description 08/31/2024 3:00 PM EDT [facility] [address] [phone] Recurrent acute suppurative otitis media of right ear without spontaneous rupture of tympanic membrane (Primary Dx); UTI symptoms; Pelvic pain; Vaginal discharge; Irregular periods Social History Tobacco Use Types Packs/Day Years [...] oz) 08/31/2024 2:47 P M EDT Height - - Body Mass Index 21.55 05/23/2024 11:50 AM EST documented in this encounter Plan of Treatment Upcoming Encounters Date Type Department Care Team (Late st Contact Info) Description 09/25/2024 2:45 PM EDT Office Visit [facility] [address] [place] [address] Ene [place], SAL [address] [place] [address] 11/07/2024 2:00 PM EDT Office Visit [facility] [address] [place] [address] [place], Karon, FIELD ASSISTANT [address] [place] [address] Scheduled Orders Name Type Priority Associated Diagnoses Orde r Schedule Bacterial Vaginosis Panel Microbiology Routine Vaginal discharge Ordered: 08/31/2024 Chlamydia/N. Gonorrhoeae RNA, TMA, Urogenitial Microbiology Routine Vaginal discharge Ordered: 08/31/2024 Scheduled Referrals Name Type Priority Associated Diagnoses Orde r Schedule Referral to ENT Outpatient Referral Routine Recurrent acute suppurative otitis media of right ear without spontaneous rupture of tympanic membrane Expected: 08/31/2024 (Approximate), Expires: 08/31/2025 Referral to Obstetrics / Gynecology Outpatient Referral Routine Pelvic pain Vaginal discharge Irregular periods Expected: 08/31/2024 (Approximate), Expires: 08/31/2025 documented as of this encounter Procedures Procedure Name Priority Date/Time Associated Diagnosis Comments POCT URINALYSIS DIPSTICK Routine 08/31/2024 2:59 PM EDT UTI symptoms documented in this encounter Results * (ABNORMAL) POCT urinalysis dipstick manually resulted (08/31/2024 2:59 PM EDT) Color, UA Yellow Clarity, UA Clear Glucose, UA Negative Bilirubin, UA Negative Ketones, UA Negative Spec Grav, UA 1.010 Blood, UA Positive(A) Negative, None Detected Comment:Large pH, UA 7.0 Protein, UA Negative Urobilinogen, UA 0.2 Leukocytes, UA Negative Negative, Rare, Trace Nitrite, UA Negative Negative, None Detected Urine 08/31/2024 2:59 PM EDT Ele Schneider MD POINT OF CARE TEST EN TER/EDIT ORDERABLES Final Result documented in this encounter Visit Diagnoses Diagnosis Recurrent acute suppurative otitis media of right ear without spontaneous rupture of tympanic membrane- Primary UTI symptoms Pelvic pain Vaginal discharge Leukorrhea, not specified as infective Irregular periods documented in this encounter Additional Health Concerns Assessment Noted Time PHQ-9 Depression Total Score: 0 09/23/19 24 9:24 AM EDT documented as of this encounter Care Teams Dining Room Hostess Relationship Specialty Start Date End Date Karon Powell FNP [address] [place] [address] PCP - General Family Medicine 11/03/21 Gustavo Pa DMD [address] [place] [address] Dental Police Inspector 07/26/24 documented as of this encounter
--- OUTSIDE RECORDS SUMMARY | 2024-08-31 16:34 | XMS_ITS | Clinical Summary ---
Author Organization [facility] Address [address] [place] [address] Care Team Providers Care Tender Labor Name Role Phone Unavailable Primary Care Provider [...]
--- OUTSIDE RECORDS SUMMARY | 2024-08-31 16:34 | XMS_ITS | Encounter Summary ---
Author Organization [employer] Address 75 [facility] 7t [place] [address] Care Team Providers Care Mortgage Funder Name Role Phone Sherry, [facility] Primary Care Provider [phone] Gustavo Pa DMD Unavailable Encounter Details Date Type Department Care Team (Late st Contact Info) Description 05/11/2023 Orders Only [facility] [address] [place], [place] [phone] [place] Karon [facility] [address] [place], [place] [phone] Social History Tobacco Use Types Packs/Day Years [...] Description 09/25/2024 2:45 PM EDT Office Visit [facility] [address] [place] [address] Ene Elmore CNM [address] [place] [address] 11/07/2024 2:00 PM EDT Office Visit [facility] [address] [place] [address] Karon Powell [facility] [address] [place] [address] documented as of this encounter Visit Diagnoses Not on filedocumented in this encounter Additional Health Concerns Assessment Noted Time PHQ-9 Depression Total Score: 0 12/03/19 23 2:52 PM EDT documented as of this encounter Care Teams Mortgage Funder Relationship Specialty Start Date End Date Karon Powell FNP [address] [place] [address] PCP - General Family Medicine 11/03/21 Gustavo Pa DMD [address] [place] [phone] Dental Pool Manager 07/26/24 documented as of this encounter
--- OUTSIDE RECORDS SUMMARY | 2024-08-31 16:34 | XMS_ITS | Encounter Summary ---
Author Organization [employer] [facility] Address [address] [place] [address] 7t [place] [address] Care Team Providers Care Waste Oil Pumper Name Role Phone Karon Powell [facility] Primary Care Provider [phone] Gustavo Pa DMD Unavailable Reason for Visit * Reason Onset Date Comments Results 05/14/2022 triage 05/14/2022 Encounter Details Date Type Department Care Team ([facility] st Contact Info) Description 05/14/2022 Telephone [facility] [address] [place], [place] [phone] [place], Karon [facility] [address] [place], [place] [phone] Results; triage Social History Tobacco Use Types [...] lab work results Please contact pt at [phone] documented in this encounter Plan of Treatment Upcoming Encounters Date Type Department Care Team (Late st Contact Info) Description 09/25/2024 2:45 PM EDT Office Visit [facility] [address] [place] [address] Ene Elmore CNM [address] [place] [address] 11/07/2024 2:00 PM EDT Office Visit [facility] [address] [place] [address] Karon Powell FNP [address] [place] [address] documented as of this encounter Visit Diagnoses Not on filedocumented in this encounter Care Teams Waste Oil Pumper Relationship Specialty Start Date End Date [place] [address] PCP - General Family Medicine 11/03/21 Gust[place] [address] Dental Rn Otolaryngology 07/26/24 documented as of this encounter
[2024-08-31 18:12] LABS: Bacterial Vaginosis PCR NEGATIVE (Negative); Candida Group PCR NOT DETECTED (Not Detect); Candida glab krusei PCR NOT DETECTED (Not Detect); Trichomonas vaginalis PCR NOT DETECTED (Not Detect)
[2024-09-01 05:32] LABS: CT PCR NOT DETECTED (Not Detect.); NG PCR NOT DETECTED (Not Detect.)
== END 2024-08-31 16:31 | disposition home or self-care (01) ==
LOC: HO.HHCLNP 16:30
PROVIDERS: Visit Provider Internal Medicine
DX: N89.8 Other specified noninflammatory disorders of vagina (principal)
CPT/HCPCS: 81515; 87491; 87591

== ENCOUNTER 2024-09-04 10:55 | Outpatient (REF) | payer MEDICAID, SELFPAY ==
--- NOTE | ~2024-09-04 | US_ITS ---
EXAMINATION: US DIAGNOSTIC ULTRASOUND BREAST, RIGHT CLINICAL INFORMATION: Bony 4-year-old female who has right nipple discharge screening and yellowish as well as pruritis of the nipple.. COMPARISON: Comparison is made with relevant prior imaging. TECHNIQUE: Ultrasound of the breast is performed with real-time brumfield scale imaging and color Doppler. FINDINGS: Targeted color Doppler ultrasound scanning in the retroareolar region demonstrates normal fibronodular breast tissue. There is no sonographic abnormality to account for the nipple discharge. Results are discussed with the patient at time of visit. US/US breast RT limited mamm only IMPRESSION: No sonographic abnormality to account for the patient's screening L nipple discharge. Recommend clinical evaluation and follow-up. ASSESSMENT: BI-RADS 1: Negative RECOMMENDATION: 1. Patient should be managed based on the clinical impression. Decision to proceed with biopsy should be based on clinical grounds and degree of clinical concern. This patient's information was entered into a reminder system with a target due date for their next mammogram. Electronically signed by: Alexa Washington DO 09/04/2024 11:36 AM EDT
--- OUTSIDE RECORDS SUMMARY | 2024-09-04 12:40 | XMS_ITS | Clinical Summary ---
Author Organization [facility] it[facility] Address [address] [place] [address] Care Team Providers Care Psychology Fellow Name Role Phone Unavailable Primary Care Provider [...]
== END 2024-09-04 10:56 | disposition home or self-care (01) ==
LOC: HO.MAMMO 10:55
PROVIDERS: PCP Registered Nurse; Visit Provider Advanced Practice Midwife
DX: N64.4 Mastodynia (principal); N64.3 Galactorrhea not associated with childbirth
CPT/HCPCS: 76642

== ENCOUNTER → 2024-09-04 11:00 | Outpatient (BNV) | payer MEDICAID, SELFPAY | PROVIDERS: PCP Registered Nurse; Visit Provider Internal Medicine | DX: N64.52 Nipple discharge (principal) | CPT/HCPCS: 76642 ==

== ENCOUNTER 2024-09-06 09:09 | Emergency (ER) | payer MEDICAID, SELFPAY ==
--- NOTE | ~2024-09-06 | US_ITS ---
EXAMINATION: US PELVIS TRANSABDOMINAL AND TRANSVAGINAL HISTORY: pelvic pain, increased vag bleed COMPARISON: There are no prior studies for comparison. TECHNIQUE: Transabdominal and endovaginal real-time 2D brumfield-scale ultrasound was performed. Color and spectral Doppler evaluation of the ovaries was performed. FINDINGS: Uterus: The uterus is normal in size, measuring 9.4 x 4.0 x 5.0 cm. Myometrium has a normal echotexture. No fibroids are identified. Endometrium: The endometrial stripe measures 1 mm in thickness. Right ovary: The right ovary measures 2.4 x 1.9 x 1.9 cm. The right ovary is normal in size and echotexture. Left ovary: The left ovary measures 2.6 x 1.6 x 2.7 cm. The left ovary is normal in size and echotexture. Normal color and spectral Doppler wave forms were documented in the bilateral ovarian arteries and veins. Pelvic fluid: none. US/US pelvic ovarian doppler IMPRESSION: Unremarkable pelvic ultrasound. Electronically signed by: Oscar Tao MD 09/06/2024 12:01 PM EDT
--- NOTE | ~2024-09-06 | US_ITS ---
EXAMINATION: US PELVIS TRANSABDOMINAL AND TRANSVAGINAL HISTORY: pelvic pain, increased vag bleed COMPARISON: There are no prior studies for comparison. TECHNIQUE: Transabdominal and endovaginal real-time 2D brumfield-scale ultrasound was performed. Color and spectral Doppler evaluation of the ovaries was performed. FINDINGS: Uterus: The uterus is normal in size, measuring 9.4 x 4.0 x 5.0 cm. Myometrium has a normal echotexture. No fibroids are identified. Endometrium: The endometrial stripe measures 1 mm in thickness. Right ovary: The right ovary measures 2.4 x 1.9 x 1.9 cm. The right ovary is normal in size and echotexture. Left ovary: The left ovary measures 2.6 x 1.6 x 2.7 cm. The left ovary is normal in size and echotexture. Normal color and spectral Doppler wave forms were documented in the bilateral ovarian arteries and veins. Pelvic fluid: none. US/US pelvic and transvaginal IMPRESSION: Unremarkable pelvic ultrasound. Electronically signed by: Oscar Tao MD 09/06/2024 12:01 PM EDT
[2024-09-06 09:19] VITALS: BP 98/45; PULSE 59; RESP 16; TEMP 36.2; O2SAT 99; BMI 21.3
[2024-09-06 09:39] LABS: MANUAL DIFF FLAG NO
[2024-09-06 09:40] LABS: Basophils Absolute Auto 0.1 X10*3/uL (0.0-0.2); Basophils Percent Auto 1.1 % (0-2); Eosinophils Absolute Auto 0.2 X10*3/uL (0.0-0.4); Eosinophils Percent Auto 3.2 % (0-4); Hematocrit 38.6 % (37.0-47.0); Hemoglobin 12.9 g/dl (12.0-16.0); Imm Gran Abs Auto 0.02 X10*3/uL (0.00-0.03); Imm Gran Pct Auto 0.4 % (0.0-0.4); Lymphocytes Absolute Auto 1.8 X10*3/uL (1.2-4.9); Lymphocytes Percent Auto 31.7 % (20-40); Mean Corpuscular HGB Conc 33.4 g/dl (31.0-35.0); Mean Corpuscular Hemoglobin 30.4 pg (27.0-33.0); Mean Corpuscular Volume 90.8 fL (80.0-98.0); Mean Platelet Volume 9.6 fL (9.4-12.3); Monocytes Absolute Auto 0.5 X10*3/uL (0.1-1.2); Neutrophils Absolute Auto 3.1 x10*3/uL (2.0-8.3); Neutrophils Percent Auto 55.6 % (45-73); Platelet Count 249 X10*3/uL (160-400); Red Blood Count 4.25 X10*6/uL (4.20-5.50); Red Cell Distribution Width 12.5 % (11.0-16.0); White Blood Count 5.6 X10*3/uL (4.8-10.8)
[2024-09-06 09:42] LABS: Appearance Urine Cloudy; Color Urine Other; Glucose Urine UA Negative (Negative); Leukocyte Esterase Urine Trace (Negative); Nitrite Urine Negative (Negative); PH 6.5 (5.0-9.0); UMIC TRIGGER UACC YES; Urine Blood Large (3+) (Negative); Urine Ketones Negative (Negative); Urine Protein Negative (Neg-Trace)
[2024-09-06 09:43] LABS: Bacteria Urine None Seen (None Seen); Hyaline Casts Urine 0-2 /LPF (0-2); RBC Urine >20 /HPF (0-2); WBC Urine 0-5 /HPF (0-5)
[2024-09-06 10:27] LABS: Alanine Aminotransferase < 6 U/L (0-31); Albumin Level 3.9 g/dL (3.5-5.0); Alkaline Phosphatase 60 U/L (39-117); Anion Gap 11 (12-20); Aspartate Amino Transferase 13 U/L (5-31); Bilirubin Total 0.2 mg/dL (0.0-1.0); Blood Urea Nitrogen 8 mg/dL (9-16); Calcium 9.2 mg/dL (8.4-10.2); Carbon Dioxide 25 mmol/L (22-29); Chloride 107 mmol/L (96-108); Creatinine Clr Calc Pharmacy 101.6; Estimated Glomerular Filt Rate > 60; Glucose Random 96 mg/dL (60-115); HCG Quantitative < 2 mIU/mL; Potassium 3.7 mmol/L (3.3-5.1); Sodium 139 mmol/L (135-145); Total Protein 6.5 g/dL (6.5-8.0)
--- OUTSIDE RECORDS SUMMARY | 2024-09-06 10:33 | XMS_ITS | Encounter Summary ---
Author Organization [employer] Address [address] [facility] 7t [place] [address] Care Team Providers Care Ton Container Shipper Name Role Phone Karon Powell WORKFORCE DEVELOPMENT VICE PRESIDENT Primary Care Provider [phone] Gustavo Pa DMD Unavailable Encounter Details Date Type Department Care Team (Late st Contact Info) Description 01/03/2024 Orders Only [facility] [address] [place], [place] [phone] Ysabel Thakkar FNP [address] [place], [place] [phone] Social History Tobacco Use Types Packs/Day Years [...] Description 09/25/2024 2:45 PM EDT Office Visit [facility] [address] [place] [address] Ene Elmore CNM [address] [place] [address] 11/07/2024 2:00 PM EDT Office Visit [facility] [address] [place] [address] Karon Powell FNP [address] [place] [phone] documented as of this encounter Visit Diagnoses Not on filedocumented in this encounter Additional Health Concerns Assessment Noted Time PHQ-9 Depression Total Score: 0 09/23/19 24 9:24 AM EDT documented as of this encounter Care Teams Ton Container Shipper Relationship Specialty Start Date End Date Karon Powell FNP [address] [place] [address] PCP - General Family Medicine 11/03/21 Gustavo Pa DMD [address] [place] [address] Dental Outdoor Emergency Care Technician 07/26/24 documented as of this encounter
--- OUTSIDE RECORDS SUMMARY | 2024-09-06 10:33 | XMS_ITS | Encounter Summary ---
Author Organization [employer] Address [address] [facility] 7t [place] [address] Care Team Providers Care Private Sector Executive Name Role Phone Karon Powell TERRITORY MANAGER Primary Care Provider [phone] Gustavo Pa DMD Unavailable Encounter Details Date Type Department Care Team (Late st Contact Info) Description 09/06/2024 Orders Only GENERIC EXTERNAL DATA DEPARTMENT Provider, Generic External Data Social History Tobacco Use Types Packs/Day Years [...] Description 09/25/2024 2:45 PM EDT Office Visit [facility] [address] [place] [address] Ene Elmore, RJ [address] [place] [address] 11/07/2024 2:00 PM EDT Office Visit [facility] [address] [place] [address] [facility] [address] [place] [address] documented as of this encounter Procedures Procedure Name Priority Date/Time Associated Diagnosis Comments URINALYSIS, COMPLETE, WITH REFLEX TO CULTURE Routine 09/06/2024 9:34 AM EDT URINALYSIS WITH REFLEX MICROSCOPIC Routine 09/06/2024 9:34 AM EDT CBC WITH AUTO DIFFERENTIAL Routine 09/06/2024 9:33 AM EDT documented in this encounter Results * (ABNORMAL) Urinalysis, Complete, with Reflex to Culture (09/06/2024 9:34 AM EDT) Color Urine Other(A) [facility] Comment:PINK Appearance Urine Cloudy [facility] PH 6.5 5.0 - 9.0 [facility] Glucose Urine UA Negative Negative mg/dL [facility] Urine Blood Large (3+)(A) Negative [facility] Specific Daphne - Urine 1.010 1.005 - 1.025 [facility] Urine Protein Negative Neg-Trace mg/dL [facility] Urine Ketones Negative Negative mg/dL [facility] Nitrite Urine Negative Negative [facility] Leukocyte Esterase Urine Trace(A) Negative [facility] RBC Urine >20(A) 0 - 2 /HPF [facility] Urine WBC 0-5 0 - 5 /HPF [facility] Urine Squamous Epithelial Cell 3-5 0 - 2 /HPF [facility] Urine Bacteria None Seen None Seen [facility] Hyaline Casts, Urine 0-2 0 - 2 /LPF [facility] 09/06/2024 9:34 AM EDT 09/06/2024 9:38 AM EDT Narrative [facility] - 09/06/2024 9:44 AM EDT Urine, Clean Catch us Generic External Data Provider LAB URINE ORDERAB LES Final Result [facility] [address] [place] [phone] * (ABNORMAL) Urinalysis w/reflex microscopic (09/06/2024 9:34 AM EDT) Color Urine Other(A) [facility] Comment:PINK Appearance Urine Cloudy [facility] PH 6.5 5.0 - 9.0 [facility] Glucose Urine UA Negative Negative mg/dL [facility] Urine Blood Large (3+)(A) Negative [facility] Specific Daphne - Urine 1.010 1.005 - 1.025 [facility] Urine Protein Negative Neg-Trace mg/dL [facility] Urine Ketones Negative Negative mg/dL [facility] Nitrite Urine Negative Negative [facility] Leukocyte Esterase Urine Trace(A) Negative [facility] 09/06/2024 9:34 AM EDT 09/06/2024 9:38 AM EDT Narrative [facility] - 09/06/2024 9:43 AM EDT Urine, Clean Catch us Generic External Data Provider LAB URINE ORDERAB LES Final Result [facility] [address] [place] [address] [phone] * CBC auto differential (09/06/2024 9:33 AM EDT) White Blood Count 5.6 4.8 - 10.8 X10*3/uL [facility] Red Blood Count 4.25 4.20 - 5.50 X10*6/uL [facility] Hemoglobin 12.9 12.0 - 16.0 g/dl [facility] Hematocrit 38.6 37.0 - 47.0 % [facility] Mean Corpuscular Volume 90.8 80.0 - 98.0 fL [facility] Mean Corpuscular Hemoglobin 30.4 27.0 - 33.0 pg [facility] Mean Corpuscular HGB Conc 33.4 31.0 - 35.0 g/dl [facility] Red Cell Distribution Width 12.5 11.0 - 16.0 % [facility] Platelet Count 249 160 - 400 X10*3/uL [facility] Mean Platelet Volume 9.6 9.4 - 12.3 fL [facility] Neutrophils Percent Auto 55.6 45 - 73 % [facility] Imm Gran Pct Auto 0.4 0.0 - 0.4 % [facility] Lymphocytes Percent Auto 31.7 20 - 40 % [facility] Monocytes Percent Auto 8.0 2 - 11 % [facility] Eosinophils Percent Auto 3.2 0 - 4 % [facility] Basophils Percent Auto 1.1 0 - 2 % [facility] NRBC Pct Auto 0.0 0.0 - 0.2 /100WBC [facility] Neutrophils Absolute Auto 3.1 2.0 - 8.3 x10*3/uL [facility] Imm Gran Abs Auto 0.02 0.00 - 0.03 X10*3/uL [facility] Lymphocytes Absolute Auto 1.8 1.2 - 4.9 X10*3/uL [facility] Monocytes Absolute Auto 0.5 0.1 - 1.2 X10*3/uL [facility] Eosinophils Absolute Auto 0.2 0.0 - 0.4 X10*3/uL [facility] Basophils Absolute Auto 0.1 0.0 - 0.2 X10*3/uL [facility] NRBC Abs Auto 0.000 0.0 - 0.012 X10*3/uL [facility] 09/06/2024 9:33 AM EDT 09/06/2024 9:38 AM EDT us Generic External Data Provider LAB BLOOD ORDERAB LES Final Result Performing Organization Address City/State/[facility] Co de Phone Number [facility] [address] [place] [address] [phone] documented in this encounter Visit Diagnoses Not on filedocumented in this encounter Additional Health Concerns Assessment Noted Time PHQ-9 Depression Total Score: 0 09/23/19 24 9:24 AM EDT documented as of this encounter Care Teams Private Sector Executive Relationship Specialty Start Date End Date Karon Powell FNP [address] [place] [address] PCP - General Family Medicine 11/03/21 Gustavo Pa DMD [address] [place] [address] Dental Ditch Digger 07/26/24 documented as of this encounter
--- OUTSIDE RECORDS SUMMARY | 2024-09-06 10:33 | XMS_ITS | Encounter Summary ---
Author Organization [employer] [facility] Address [address] [place] [address] 7t [place] [address] Care Team Providers Care Field Nurse Case Manager Name Role Phone Karon Powell [facility] Primary Care Provider [phone] Gustavo Pa DMD Unavailable Reason for Visit * Reason Onset Date Comments Results 05/14/2022 triage 05/14/2022 Encounter Details Date Type Department Care Team ([facility] st Contact Info) Description 05/14/2022 Telephone [facility] [address] [place], [place] [phone] [place], Karon [facility] [address] [place], [place] [phone] Results; triage Social History Tobacco Use Types [...] lab work results Please contact pt at [phone] documented in this encounter Plan of Treatment Upcoming Encounters Date Type Department Care Team (Late st Contact Info) Description 09/25/2024 2:45 PM EDT Office Visit [facility] [address] [place] [address] Ene Elmore CNM [address] [place] [address] 11/07/2024 2:00 PM EDT Office Visit [facility] [address] [place] [address] Karon Powell FNP [address] [place] [address] documented as of this encounter Visit Diagnoses Not on filedocumented in this encounter Care Teams Field Nurse Case Manager Relationship Specialty Start Date End Date Karon [place] [address] PCP - General Family Medicine 11/03/21 Gust[place] [address] Dental Collection Advisor 07/26/24 documented as of this encounter
--- OUTSIDE RECORDS SUMMARY | 2024-09-06 10:33 | XMS_ITS | Encounter Summary ---
Author Organization [employer] Address [address] [facility] 7t [place] [address] Care Team Providers Care Teller Coordinator Name Role Phone Karon Powell [facility] Primary Care Provider [phone] Gustavo Pa DMD Unavailable Encounter Details Date Type Department Care Team (Late st Contact Info) Description 05/06/2023 Orders Only [facility] [address] [place], [place] [phone] [place] Karon [facility] [address] [place], [place] [phone] Social History Tobacco Use Types Packs/Day Years [...] Description 09/25/2024 2:45 PM EDT Office Visit [facility] [address] [place] [address] Ene Elmore CNM [address] [place] [address] 11/07/2024 2:00 PM EDT Office Visit [facility] [address] [place] [address] Karon Powell FNP [address] [place] [address] documented as of this encounter Visit Diagnoses Not on filedocumented in this encounter Additional Health Concerns Assessment Noted Time PHQ-9 Depression Total Score: 0 12/03/19 23 2:52 PM EDT documented as of this encounter Care Teams Teller Coordinator Relationship Specialty Start Date End Date Karon Powell FNP [address] [place] [address] PCP - General Family Medicine 11/03/21 Gustavo Pa DMD [address] [place] [address] Dental Senior Accountant 07/26/24 documented as of this encounter
--- OUTSIDE RECORDS SUMMARY | 2024-09-06 10:33 | XMS_ITS | Encounter Summary ---
Author Organization [employer] Address [address] [facility] 7t [place] [address] Care Team Providers Care Criminal Lawyer Name Role Phone Sherry, [facility] Primary Care Provider [phone] Gustavo Pa DMD Unavailable Encounter Details Date Type Department Care Team (Late st Contact Info) Description 05/11/2023 Orders Only [facility] [address] [place], [place] [phone] [place] Karon [facility] [address] [place], [place] [phone] Social History Tobacco Use Types Packs/Day Years [...] Description 09/25/2024 2:45 PM EDT Office Visit [facility] MEDICINE [address] [place] [address] Ene Elmore CNM [address] [place] [address] 11/07/2024 2:00 PM EDT Office Visit [facility] [address] [place] [address] Karon Powell [facility] [address] [place] [address] documented as of this encounter Visit Diagnoses Not on filedocumented in this encounter Additional Health Concerns Assessment Noted Time PHQ-9 Depression Total Score: 0 12/03/19 23 2:52 PM EDT documented as of this encounter Care Teams Criminal Lawyer Relationship Specialty Start Date End Date Karon Powell FNP [address] [place] [address] PCP - General Family Medicine 11/03/21 Gustavo Pa DMD [address] [place] [address] Dental Lead Software Tester 07/26/24 documented as of this encounter
--- OUTSIDE RECORDS SUMMARY | 2024-09-06 10:33 | XMS_ITS | Clinical Summary ---
Author Organization [employer] Address [address] [facility] [address] [place] [address] Care Team Providers Care Search Engine Optimization Specialist Name Role Phone Karon Powell PRODUCTION DISPATCHER Primary Care Provider [phone] YandelGustavo adames DMD Unavailable Allergies No known [...] (one) time each day. 10/22/19 22 Active Cesuxa-UF-Mayqygm n-Petrolatum 1-0.25-14.4-15 % cream Apply to area [...] of tympanic membrane 08/31/2024 Pelvic pain 08/31/2024 Assessment & Plan (08/31/2024 4:43 PM EDT): Patient referred to SALES STRATEGY MANAGER Vaginal discharge 08/31/2024 Assessment & Plan (08/31/2024 4:42 PM EDT): BV NCV done today patient will be contacted with results Irregular periods 08/31/2024 Assessment & Plan (08/31/2024 4:43 PM EDT): Patient referred to SALES STRATEGY MANAGER Dysmenorrhea 07/04/2023 Assessment & Plan (07/04/2023 5:47 [...] Encounters Date Type Department Care Team Description 09/06/2024 Orders Only GENERIC EXTERNAL DATA DEPARTMENT Provider, Generic External Data 08/31/2024 3:00 PM EDT Office Visit [facility] [address] [place] [phone] Ele Monroy MD Recurrent acute suppurative otitis media of right ear without spontaneous rupture of tympanic membrane (Primary Dx); UTI symptoms; Pelvic pain; Vaginal discharge; Irregular periods 08/23/2024 9:40 AM EDT Office Visit [facility] [address] [place] [address] [phone] Princess Kaufman DO Acute UTI (Primary Dx); Vaginal discharge 08/14/2024 11:20 AM EDT Office Visit [facility] [address] [place] [phone] Sofia Bee MD Right otitis media, unspecified otitis media type (Primary Dx); Cough in adult patient; Acute URI 08/07/2024 Telephone [facility] [address] [facility] [place] [address] Zurdo Randall CNM 07/26/2024 Orders Only [facility] [place] [address] Zurdo Randall CNM Galactorrhea (Primary Dx) 07/20/2024 Orders Only [facility] [address] [place] [address] Zurdo Randall CNM Elevated TSH (Primary Dx) 07/20/2024 Population Health Risk Score [facility] ([facility] Department [address] [place] [place] [phone] Provider, Population Health Generic 07/19/2024 Orders Only [facility] [place] [address] Zurdo Randall CNM Galactorrhea (Primary Dx); Breast pain, right 07/18/2024 Orders Only [facility] [place] [address] Zurdo Randall CNM 07/17/2024 1:00 PM EDT Office Visit [facility] [place] [address] Zurdo Randall CNM Galactorrhea (Primary Dx) 07/17/2024 Travel 06/15/2024 Telephone [facility] [place] [address] Lavinia, [place], [facility] No Show from Last 3 Months Immunizations Name Administration [...] Description 09/25/2024 2:45 PM EDT Office Visit [facility] [address], [place] [phone] Zurdo Randall, RJ [address], [place] [phone] 11/07/2024 2:00 PM EDT Office Visit [facility] [address], [place] [phone] Lavinia, Karon, PRODUCTION DISPATCHER [address] [place], [place] [phone] Health Maintenance Due Date Last Done Comments Dental Prophylaxis 1999 Alcohol/Substance Use Screening 2011 Pneumococcal Vaccine: Pediatrics (0 to 5 Years) and At-Risk Patients (6 to 49) Years) (1 of 2 - PCV) 2018 Dental Oral Exam 10/26/2023 04/25/2023 Pap Smear 11/29/2023 11/28/2020 COVID-19 Vaccine ( - season) 2024 01/07/2022, 12/04/2021 Influenza Vaccine [...] AUTO DIFFERENTIAL Routine 09/06/2024 9:33 AM EDT BI US BREAST LIMITED RIGHT Urgent 09/04/2024 11:00 AM EDT CHLAMYDIA/N. GONORRHOEAE RNA, TMA, UROGENITAL Routine 08/31/2024 3:33 PM EDT Vaginal discharge BACTERIAL VAGINOSIS PANEL Routine 08/31/2024 3:33 PM EDT Vaginal discharge POCT URINALYSIS DIPSTICK Routine 08/31/2024 2:59 PM [...] Relevant to Health Maintenance Results * (ABNORMAL) Urinalysis, Complete, with Reflex to Culture (09/06/2024 9:34 AM EDT) Color Urine Other(A) [facility] Comment:PINK Appearance Urine Cloudy [facility] PH 6.5 5.0 - 9.0 [facility] Glucose Urine UA Negative Negative mg/dL [facility] Urine Blood Large (3+)(A) Negative [facility] Specific [place] - Urine 1.010 1.005 - 1.025 [facility] Urine Protein Negative Neg-Trace mg/dL [facility] Urine Ketones Negative Negative mg/dL [facility] Nitrite Urine Negative Negative [facility] Leukocyte Esterase Urine Trace(A) Negative [facility] RBC Urine >20(A) 0 - 2 /HPF [facility] Urine WBC 0-5 0 - 5 /HPF [facility] Urine Squamous Epithelial Cell 3-5 0 - 2 /HPF [facility] Urine Bacteria None Seen None Seen [facility] Hyaline Casts, Urine 0-2 0 - 2 /LPF [facility] 09/06/2024 9:34 AM EDT 09/06/2024 9:38 AM EDT Narrative [facility] - 09/06/2024 9:44 AM EDT Urine, Clean Catch us Generic External Data Provider LAB URINE ORDERAB LES Final Result [facility] [address] [place] [phone] * (ABNORMAL) Urinalysis w/reflex microscopic (09/06/2024 9:34 AM EDT) Color Urine Other(A) [facility] Comment:PINK Appearance Urine Cloudy [facility] PH 6.5 5.0 - 9.0 [facility] Glucose Urine UA Negative Negative mg/dL [facility] Urine Blood Large (3+)(A) Negative [facility] Specific [place] - Urine 1.010 1.005 - 1.025 [facility] Urine Protein Negative Neg-Trace mg/dL [facility] Urine Ketones Negative Negative mg/dL [facility] Nitrite Urine Negative Negative [facility] Leukocyte Esterase Urine Trace(A) Negative [facility] 09/06/2024 9:34 AM EDT 09/06/2024 9:38 AM EDT Narrative [facility] - 09/06/2024 9:43 AM EDT Urine, Clean Catch us Generic External Data Provider LAB URINE ORDERAB LES Final Result [facility] [address] [place] [phone] * CBC auto differential (09/06/2024 9:33 AM EDT) White Blood Count 5.6 4.8 - 10.8 X10*3/uL [facility] Red Blood Count 4.25 4.20 - 5.50 X10*6/uL [facility] Hemoglobin 12.9 12.0 - 16.0 g/dl [facility] Hematocrit 38.6 37.0 - 47.0 % [facility] Mean Corpuscular Volume 90.8 80.0 - 98.0 fL [facility] Mean Corpuscular Hemoglobin 30.4 27.0 - 33.0 pg [facility] Mean Corpuscular HGB Conc 33.4 31.0 - 35.0 g/dl [facility] Red Cell Distribution Width 12.5 11.0 - 16.0 % [facility] Platelet Count 249 160 - 400 X10*3/uL [facility] Mean Platelet Volume 9.6 9.4 - 12.3 fL [facility] Neutrophils Percent Auto 55.6 45 - 73 % [facility] Imm Gran Pct Auto 0.4 0.0 - 0.4 % [facility] Lymphocytes Percent Auto 31.7 20 - 40 % [facility] Monocytes Percent Auto 8.0 2 - 11 % [facility] Eosinophils Percent Auto 3.2 0 - 4 % [facility] Basophils Percent Auto 1.1 0 - 2 % [facility] NRBC Pct Auto 0.0 0.0 - 0.2 /100WBC [facility] Neutrophils Absolute Auto 3.1 2.0 - 8.3 x10*3/uL [facility] Imm Gran Abs Auto 0.02 0.00 - 0.03 X10*3/uL [facility] Lymphocytes Absolute Auto 1.8 1.2 - 4.9 X10*3/uL [facility] Monocytes Absolute Auto 0.5 0.1 - 1.2 X10*3/uL [facility] Eosinophils Absolute Auto 0.2 0.0 - 0.4 X10*3/uL [facility] Basophils Absolute Auto 0.1 0.0 - 0.2 X10*3/uL [facility] NRBC Abs Auto 0.000 0.0 - 0.012 X10*3/uL [facility] 09/06/2024 9:33 AM EDT 09/06/2024 9:38 AM EDT us Generic External Data Provider LAB BLOOD ORDERAB LES Final Result Performing Organization Address [place] Co de Phone Number [facility] [address] [place] [phone] * BI US Breast Limited Right (09/04/2024 11:00 AM EDT) Anatomical Region Laterality Modality Breast Right Ultrasound 09/04/2024 11:0 0 AM EDT Narrative 09/04/2024 11:39 AM EDT ? [facility] ? [address] ?[place] [address] ? Ultrasound Report ? Signed ? Patient: Ying Eddy,Mayrangelique ? MR#: [id number] ? : 2000 ?Acct:[id number] ? Age/Sex: 24 / F ?ADM Date: 09/04/24 ? Loc: HO.MAMMO ? Attending Dr: Zurdo Randall CNM ? Ordering Physician: ZURDO RANDALL CNM ?? Date of Service: 09/04/24 ?? Procedure(s): US breast RT limited mamm only ?? Accession Number(s): [id number] ? cc: ZURDO RANDALL CNM; Karon Powell PRODUCTION DISPATCHER ? EXAMINATION: ?? US DIAGNOSTIC ULTRASOUND BREAST, RIGHT ? CLINICAL INFORMATION: ? Bony 4-year-old female who has right nipple discharge screening and ?? yellowish as well as ?? pruritis of the nipple.. ? COMPARISON: ?? Comparison is made with relevant prior imaging. ? TECHNIQUE: ?? Ultrasound of the breast is performed with real-time brumfield scale imaging ?? and color Doppler. ? FINDINGS: ?? Targeted color Doppler ultrasound scanning in the retroareolar region ?? demonstrates normal fibronodular breast tissue. There is no sonographic ?? abnormality to account for the nipple discharge. ? Results are discussed with the patient at time of visit. ? US/US breast RT limited mamm only ?? IMPRESSION: ?? No sonographic abnormality to account for the patient's screening L ?? nipple discharge. Recommend clinical evaluation and follow-up. ? ASSESSMENT: ? BI-RADS 1: Negative ? RECOMMENDATION: ?? 1. Patient should be managed based on the clinical impression. ? Decision to proceed with biopsy should be based on clinical grounds and ?? degree of clinical concern. ? This patient's information was entered into a reminder system with a ?? target due date for their next mammogram. ? Electronically signed by: ??Alexa Washington DO ??09/04/2024 11:36 AM EDT ?? RP ? Dictated By: ?Alexa Washington DO ? Signed By: ?<Electronically signed by Alexa Washington, DO in OV> ? 09/04/24 1136 ? DD/DT: 09/04/ 1100 ? TD/TT: 09/04/24 1127 ? Title Processor: ? Procedure Note Karl Image - 09/04/2024 [facility] [address] [place] [address] Ultrasound Report Signed Patient: Maicol Krishna MR#: [id number] : 2000Acct:[id number] Age/Sex: 24 / FADM Date: 09/04/24 Loc: HO.MAMMO Attending Dr: Zurdo Randall CNM Ordering Physician: ZURDO RANDALL CNM Date of Service: 09/04/24 Procedure(s): US breast RT limited mamm only Accession Number(s): [id number] cc: ZURDO RANDALL CNM; [facility] EXAMINATION: US DIAGNOSTIC ULTRASOUND BREAST, RIGHT CLINICAL INFORMATION: Bony 4-year-old female who has right nipple discharge screening and yellowish as well as pruritis of the nipple.. COMPARISON: Comparison is made with relevant prior imaging. TECHNIQUE: Ultrasound of the breast is performed with real-time brumfield scale imaging and color Doppler. FINDINGS: Targeted color Doppler ultrasound scanning in the retroareolar region demonstrates normal fibronodular breast tissue. There is no sonographic abnormality to account for the nipple discharge. Results are discussed with the patient at time of visit. US/US breast RT limited mamm only IMPRESSION: No sonographic abnormality to account for the patient's screening L nipple discharge. Recommend clinical evaluation and follow-up. ASSESSMENT: BI-RADS 1: Negative RECOMMENDATION: 1. Patient should be managed based on the clinical impression. Decision to proceed with biopsy should be based on clinical grounds and degree of clinical concern. This patient's information was entered into a reminder system with a target due date for their next mammogram. Electronically signed by: Alexa Washington DO 09/04/2024 11:36 AM EDT Dictated By: Alexa Washington DO Signed By: <Electronically signed by Alexa Washington DO in OV> 09/04/24 1136 DD/ 1100 TD/TT: 09/04/24 1127 Title Processor: Zurdo Randall CNM IMG US PROCEDURES Final R esult * Bacterial Vaginosis Panel (08/31/2024 3:33 PM EDT) Only the most recent of2 resultswithin the time period is included. TRICHOMONAS VAGINALIS DETECTION BY PCR NOT DETECTED Not Detect [facility] BACTERIAL VAGINOSIS DETECTION BY PCR NEGATIVE Negative [facility] Comment:The BV organism targ ets of [...] DETECTION BY PCR NOT DETECTED Not Detect [facility] Tata glab krusei PCR NOT DETECTED Not Detect [facility] Swab Vaginal structure / Unknown 08/31/2024 3:33 PM EDT 08/31/2024 4:31 PM EDT Ele Schneider MD LAB MICROBIOLOGY - NERLA ORDERABLES Final Result [facility] [address] [place] [phone] * Chlamydia/N. Gonorrhoeae RNA, TMA, Urogenitial (08/31/2024 3:33 PM EDT) Only the most recent of2 resultswithin the time period is included. CT PCR NOT DETECTED Not Detect. [facility] Comment:A not detected test result does [...] psychologicalconsequences. NG PCR NOT DETECTED Not Detect. [facility] Comment:A not detected test result does [...] medical, social or psychologicalconsequences. Swab (Vaginal Swab) 08/31/2024 3:33 PM EDT 08/31/2024 4:31 PM EDT Narrative [facility] - 09/01/2024 5:33 AM EDT Vaginal us Ele Schneider MD LAB MICROBIOLOGY - [facility] ORDERABLES Final Result [facility] [address] [place] [phone] * (ABNORMAL) POCT urinalysis dipstick manually resulted [...] Positive Urine 08/23/2024 10:1 4 AM EDT us Princess Kaufman DO POINT OF CARE TEST ENTER/IVORY T ORDERABLES Final Result * Culture, Urine, Routine (08/23/2024 9:52 AM EDT) Urine Urine specimen obtained by clean catch procedure / Unknown 08/23/2024 9:52 AM EDT 08/23/2024 4:56 PM EDT Comment:UACC Narrative [facility] - 08/25/2024 11:45 AM EDT Urine Culture No growth. Specimen Source: Urine clean catch us Princess Kaufman DO LAB MICROBIOLOGY - GENERAL O RDERABLES Final Result Performing Organization Address [facility]/ZIP Co de Phone Number [facility] [address] [place] [phone] * Influenza B (ID NOW Rapid Molecular) (08/14/2024 10:48 AM EDT) Influenza B Negative Negative, Indeterminate [facility] Swab 08/14/2024 10:4 8 AM EDT us Sofia Bee MD POINT OF CARE TEST ENTER/E DIT ORDERABLES Final Result Performing Organization Address [place]/ZIP Co de Phone Number [facility] [address] [place] [phone] * Influenza A (ID NOW Rapid Molecular) (08/14/2024 10:48 AM EDT) [facility] Influenza A Negative Negative, Indeterminate [facility] Swab 08/14/2024 10:4 8 AM EDT Sofia Bee MD POINT OF CARE TEST ENTER/E DIT ORDERABLES Final Result [facility] [address] [place] [phone] * POCT Rapid COVID Ag (08/14/2024 10:40 AM EDT) [facility] Rapid COVID Ag Negative Swab 08/14/2024 10:4 0 AM EDT Sofia Bee MD POINT OF CARE TEST ENTER/E DIT ORDERABLES Final Result * (ABNORMAL) TSH W/Reflex to FT4 (07/18/2024 9:12 AM EDT) [facility] TSH reflex Free T4 4.36(H) 0.32 - 4.0 uIU/mL [facility] Blood Venous blood specimen / Unknown 07/18/2024 9:12 AM EDT 07/18/2024 11:40 AM EDT Zurdo HUANG LAB BLOOD ORDERABLES Marisel l Result [facility] [address] [place] [phone] * T4, Free (07/18/2024 9:12 AM EDT) [facility] Free T4 (Free Thyroxine) 0.96 0.71 - 1.85 ng/dL [facility] 07/18/2024 9:12 AM EDT 07/18/2024 11:40 AM EDT Zurdo Ramírez [facility] LAB BLOOD ORDERABLES Marisel l Result Performing Organization Address [place] Co de Phone Number [facility] [address] [place] [phone] * Prolactin (07/18/2024 12:00 AM EDT) Prolactin 19.6 ng/mL [facility] Comment:Reference Range Fema les Non- 3.0-30.0 10.0-209.0 Postmenopausal 2.0-20.0THIS TEST WAS PERFORMED AT:[facility] [place] [phone] KAMINSKI MD Blood Venous blood specimen / Unknown 07/18/2024 07/18/2024 Zurdo Randall [facility] LAB BLOOD ORDERABLES Marisel l Result Performing Organization Address [facility] de Phone Number [facility] [address] [place] [phone] * Hepatitis C Antibody with Reflex to HCV, RNA, Quantitative, Real-Time PCR (02/17/2024 10:10 AM EDT) Pathologist [facility] Hepatitis C Antibody Nonreactive Nonreactive [facility] Comment:Antibodies to HCV no t detected; does not exclude early acuteHCV infection. Blood Venous blood specimen / Unknown 02/17/2024 10:10 AM EDT 02/17/2024 11:09 AM EDT Princess Kaufman DO LAB BLOOD ORDERABLES Final R esult Performing Organization Address [place] Co de Phone Number [facility] [address] [place] [phone] * HIV-1/2 Antigen and Antibodies, Fourth Generation, with Reflexes (02/17/2024 10:10 AM EDT) HIV AB/AG Nonreactive Nonreactive [facility] Comment:HIV-1 p24 Ag and/or HIV-1/HIV-2 Ab not detected.A test result that is nonreactive does not exclude thepossibility of exposure to or infection with HIV-1 and/orHIV-2. Nonreactive results in this assay for individualswith prior exposure to HIV-1 and/or HIV-2 may be due toantigen and antibody levels that are below the limit ofdetection of this assay.The [employer] HIV Ag/Ab Combo assay result andsupplemental assay results should be interpreted inconjunction with the patient's clinical presentation,history and other laboratory results. If the results areinconsistent with clinical evidence, additional testing issuggested to confirm the result. Blood Venous blood specimen / Unknown 02/17/2024 10:10 AM EDT 02/17/2024 11:09 AM EDT Princess Kaufman DO LAB BLOOD ORDERABLES Final R esult Performing Organization Address [place]/ZIP Co de Phone Number [facility] [address] [place] [phone] * Pap Smear (11/28/2020 12:00 AM EDT) Swab Historical Provider LAB CYTOLOGY ORDERABLES F inal Result Performing Organization Address [place] Co de Phone Number [facility] [address] [place] [phone] from Last 3 Months or Most Recently Relevant to Health Maintenance [facility] MEDICAID STAND ADULT DENTAL - HSN PARTIAL (MEDICAID) Care Teams Search Engine Optimization Specialist Relationship Specialty Start Date End Date Karon Powell FNP [address] [place], [place] [phone] PCP - General Family Medicine 11/03/21 Gustavo Pa DMD [address], [place] [phone] Dental Gizzard Puller 07/26/24
--- OUTSIDE RECORDS SUMMARY | 2024-09-06 10:33 | XMS_ITS | Clinical Summary ---
Author Organization [facility] ity Address [address] [place] [phone] Care Team Providers Care Intervention Teacher Name Role Phone Unavailable Primary Care Provider [...]
--- NOTE | 2024-09-06 10:55 | ED.GENADULT ---
HPI - General Adult General Chief complaint: Vaginal Bleeding Stated complaint: abnormal period/discharge, cramps Time Seen by Provider: 09/06/24 10:24 Source: patient Mode of arrival: ambulatory Limitations: no limitations History of Present Illness ED Provider: XIOMARA HICKMAN PA-C HPI narrative: 24 year old, A2 female, presents to the ED today for evaluation of vaginal bleeding x2 weeks. Reports having an elective in 04/2025 (5 months ago). She had nuvaring IUD inserted at that time. Reports two months of vaginal bleeding following procedure followed by two months of normal menstrual. Report vaginal bleeding which began again on 08/25 and has continued intermittently over the last two weeks. Admits to spotting. she has only been using panty liners, having to change them very infrequently. denies using pads/ tampons. reports occasional clots . Admits vaginal bleeding increased this morning and she began having lower abdominal cramping, prompting her to come to the ED for further evaluation. Admits to removing her IUD at home 3 days ago as she though this might be causing her symptoms. Reports she is sexually active with her one male partner of 6 months. Admits to unprotected intercourse. States she tested negative for STDs a few weeks ago. She adds she was diagnosed with UTI 2-3 weeks ago and was prescribed a 3 day course of antibiotics which she took to completion. Reports continued urinary urgency. Denies dysuria, flank pain. Denies fever, chills, N/V, vaginal discharge. Related Data Home Medications ?Medication ?Instructions ?Recorded ?Confirmed prenat.vits,bethel,zju-lanv-caxdm 1 tab PO DAILY 04/29/20 10/03/20 Previous Rx's ?Medication ?Instructions ?Recorded levonorgestrel-ethinyl estradiol 1 tab PO DAILY #84 tabs 11/28/20 0.1 mg-20 mcg tablet albuterol sulfate 90 mcg/actuation 1 inh inhalation QID PRN shortness 01/17/21 aerosol inhaler of breath or wheezing #8.5 grams azithromycin 250 mg tablet See Rx Instructions PO .COMPLEX #6 01/17/21 tabs codeine 10 mg-guaifenesin 100 mg/5 5 ml PO Q6H PRN cold symptoms #120 01/17/21 mL oral liquid (Guaifenesin AC) mL cyclobenzaprine 10 mg tablet 10 mg PO Q8H Muscle spasm #10 tabs 01/17/21 doxycycline monohydrate 100 mg 100 mg PO BID #14 tabs 07/30/21 tablet metronidazole 500 mg tablet 500 mg PO BID 7 days #14 tabs 08/04/21 acetaminophen 500 mg tablet 1,000 mg (2 x 500 mg) PO QID PRN 08/26/21 (Tylenol Extra Strength) fever or pain #14 tabs cyclobenzaprine 10 mg tablet 10 mg PO Q8H PRN Muscle spasm #14 08/26/21 tabs albuterol sulfate 90 mcg/actuation 1 inh inhalation QID PRN shortness 01/02/22 aerosol inhaler of breath or wheezing #8.5 grams amoxicillin 875 mg-potassium 1 tab PO BID 7 days #14 tabs 01/02/22 clavulanate 125 mg tablet guaifenesin 200 mg/5 mL oral liquid 200 mg (5 mL) PO Q4H PRN 01/02/22 congestion #118 mL prednisone 20 mg tablet 40 mg (2 x 20 mg) PO DAILY 01/02/22 Bronchospasm 5 days #10 tabs erythromycin 5 mg/gram (0.5 %) eye 0.5 inch ophthalmic (eye) TID 7 02/23/22 ointment days #3.5 grams Allergies Allergy/AdvReac Type Severity Reaction Status Date / Time No Known Allergies Allergy Verified 09/06/24 09:22 [No Known Allergies*] Review of Systems Review of Systems: Yes all other systems are reviewed and are negative [facility] Past Medical History Attestation statement: The following information was validated with the patient. Source: old records reviewed and nursing notes reviewed Medical History No known health problems Family History Family History Mother No problems noted. Father No problems noted. Maternal Grandfather No problems noted. Maternal Grandmother Hx of diabetes mellitus Paternal Grandfather Hx of coronary artery disease Hx of diabetes mellitus Hx of primary hypertension Paternal Grandmother No problems noted. Sister No problems noted. Paternal Aunt No problems noted. Social History Social History Household Members: Significant Other Alcohol intake: never Current occupational status: employed Current occupational exposures/hazards: No Sexual orientation: Straight/Heterosexual Physical Exam ED Vital Signs: Vital Signs - 24 hr 09/06/24 09:19 09/06/24 14:10 09/06/24 14:39 Temperature 97.1 F 97.5 F 97.5 F Pulse Rate 59 54 54 Respiratory Rate 16 14 14 Blood Pressure 98/45 L 99/52 L 99/52 L Pulse Oximetry 99 100 100 Oxygen Delivery Method Room Air Room Air Room Air BMI result Body Mass Index 21.3 vital signs stable General: Well appearing, in no acute distress. Skin: Warm, dry, intact. No rashes or lesions. Head: Normocephalic, atraumatic. EENT: Hearing is intact b/l. Conjunctiva clear. Sclera is anicteric. Neck: Supple without LAD. Cardiac: Chest wall symmetric. RRR. Lungs: Normal respiratory effort without accessory muscle use. CTA bilaterally. Abdomen: soft, ND/NT, no rebound or guarding. active bs x4. + Sensitive exam performed with Sarah perfume and toilet water maker present in room to make ready worker. NICHOLE farr at bedside to observe with patient's consent. External genitalia is normal in appearance without lesions, swelling, masses or tenderness. Vaginal canal is pink and moist without lesions or discharge. noted blood in vaginal canal, no clots. Cervix is non-tender without lesions or erosions. cervical os closed. Uterus is non-tender and normal in size. Ovaries are non-tender without palpable masses or enlargement. No cervical motion tenderness on bimanual exam. Back: No midline spinous or paraspinal tenderness. No step off deformity. No CVAT Ext: Upper and lower extremities atraumatic, without tenderness, deformity, swelling or erythema. Neuro: AOx3. Normal speech. Course Course Course Narrative: cbc without leukocytosis or left shift. no anemia, h&h stable. chemistry without acute electrolyte abnormality requiring intervention. no chantale. normal liver function. beta hcg undetectable. not . urine without infection. pelvic US unremarkable. ct/ng, trich, bv testing pending. > I reached out to self contained behavior unit teacher OBGYN dr. lorenzo - patient is hemodynamically stable. does not recommend starting patient on any OCP. recommending prompt outpatient follow up and return precautions. > discussed all work up results with patient. advised to follow up with her PCP. Patient has remained stable throughout ED visit today. Discussed worrisome signs and symptoms and when to return to the ED. All questions answered at this time. Patient is agreeable with disposition and stable for discharge. Medical Decision Making Medical Decision Making [facility] Narrative: 24 year old, A2 female, presents to the ED today for evaluation of vaginal bleeding x2 weeks. vitals are stable. afebrile. she is well appearing and in NAD. On exam, abdomen is soft, ND/NT, no rebound or guarding. active bs x4. Sensitive exam performed with Sarah perfume and toilet water maker present in room to make ready worker. NICHOLE farr at bedside to observe with patient's consent. External genitalia is normal in appearance without lesions, swelling, masses or tenderness. Vaginal canal is pink and moist without lesions or discharge. noted blood in vaginal canal, no clots. Cervix is non-tender without lesions or erosions. cervical os closed. Uterus is non-tender and normal in size. Ovaries are non-tender without palpable masses or enlargement. No cervical motion tenderness on bimanual exam. Differential diagnosis consists of IUP, ectopic , endometriosis, PID, UTI, anemia, PCOS, complication of contraception use/removal ED workup: CBC, CMP, UA, bHCG, pelvic ultrasound Differential Diagnosis Differential Diagnoses: The differential diagnosis associated with the presentation includes As above Admission/Observation Not indicated Consult Healthcare Provider Management of the patient was discussed with: Radio Communication Coordinator (OTILIO - dr. lorenzo) Lab Data [facility] Lab Attestation statement: I reviewed the patient's lab results. As above 09/06/24 09:33 09/06/24 09:33 Labs: Lab Results 09/06/24 09/06/24 09/06/24 Range/Units 09:33 09:34 12:48 WBC 5.6 (4.8-10.8) X10*3/uL RBC 4.25 (4.20-5.50) X10*6/uL Hgb 12.9 (12.0-16.0) g/dl Hct 38.6 (37.0-47.0) % MCV 90.8 (80.0-98.0) fL MCH 30.4 (27.0-33.0) pg MCHC 33.4 (31.0-35.0) g/dl RDW 12.5 (11.0-16.0) % Plt Count 249 (160-400) X10*3/uL MPV 9.6 (9.4-12.3) fL Immature Gran % (Auto) 0.4 (0.0-0.4) % Neut % (Auto) 55.6 (45-73) % Lymph % (Auto) 31.7 (20-40) % [place] % (Auto) 8.0 (2-11) % Eos % (Auto) 3.2 (0-4) % Baso % (Auto) 1.1 (0-2) % Lymph # (Auto) 1.8 (1.2-4.9) X10*3/uL [place] # (Auto) 0.5 (0.1-1.2) X10*3/uL Eos # (Auto) 0.2 (0.0-0.4) X10*3/uL Baso # (Auto) 0.1 (0.0-0.2) X10*3/uL Abs Immat Gran (auto) 0.02 (0.00-0.03) X10*3/uL Absolute Neuts (auto) 3.1 (2.0-8.3) x10*3/uL Absolute Nucleated RBC 0.000 (0.0-0.012) X10*3/uL Nucleated RBC % (auto) 0.0 (0.0-0.2) /100WBC Sodium 139 (135-145) mmol/L Potassium 3.7 (3.3-5.1) mmol/L Chloride 107 (96-108) mmol/L Carbon Dioxide 25 (22-29) mmol/L Anion Gap 11 L (12-20) BUN 8 L (9-16) mg/dL Creatinine 0.70 (0.5-1.4) mg/dL Estim Creat Clear Calc 101.6 Estimated GFR > 60 Random Glucose 96 (60-115) mg/dL Calcium 9.2 (8.4-10.2) mg/dL Total Bilirubin 0.2 (0.0-1.0) mg/dL AST 13 (5-31) U/L ALT < 6 (0-31) U/L Alkaline Phosphatase 60 (39-117) U/L Total Protein 6.5 (6.5-8.0) g/dL Albumin 3.9 (3.5-5.0) g/dL Beta HCG, Quant < 2 mIU/mL Urine Color Other A Urine Appearance Cloudy Urine pH 6.5 (5.0-9.0) Ur Specific [place] 1.010 (1.005-1.025) Urine Protein Negative (Neg-Trace) mg/dL Urine Glucose (UA) Negative (Negative) mg/dL Urine Ketones Negative (Negative) mg/dL Urine Blood Large (3+) H (Negative) Urine Nitrite Negative (Negative) Ur Leukocyte Esterase Trace H (Negative) Urine RBC >20 H (0-2) /HPF Urine WBC 0-5 (0-5) /HPF Ur Squamous Epith Cells 3-5 (0-2) /HPF Urine Bacteria None Seen (None Seen) Hyaline Casts 0-2 (0-2) /LPF Chlam trachomat DNA PCR NOT DETECTED (Not Detect.) N.gonorrhoeae DNA (PCR) NOT DETECTED (Not Detect.) T. vaginalis (PCR) NOT DETECTED (Not Detect) Bact vaginosis (PCR) NEGATIVE (Negative) C. krusei/glabrata (PCR) NOT DETECTED (Not Detect) Tata group (PCR) NOT DETECTED (Not Detect) Independent Interpretation I performed an independent interpretation of an: Ultrasound Interpretation: pelvic US with good aa flow to b/l ovaries Radiology Impression Discussion of test interpretation with radiology: I have reviewed the radiologist's reading. Radiologist Impression: Procedure(s): US pelvic and transvaginal Accession Number(s): [id number] cc: Xiomara Hickman; [place] [facility] EXAMINATION: US PELVIS TRANSABDOMINAL AND TRANSVAGINAL HISTORY: pelvic pain, increased vag bleed COMPARISON: There are no prior studies for comparison. TECHNIQUE: Transabdominal and endovaginal real-time 2D brumfield-scale ultrasound was performed. Color and spectral Doppler evaluation of the ovaries was performed. FINDINGS: Uterus: The uterus is normal in size, measuring 9.4 x 4.0 x 5.0 cm. Myometrium has a normal echotexture. No fibroids are identified. Endometrium: The endometrial stripe measures 1 mm in thickness. Right ovary: The right ovary measures 2.4 x 1.9 x 1.9 cm. The right ovary is normal in size and echotexture. Left ovary: The left ovary measures 2.6 x 1.6 x 2.7 cm. The left ovary is normal in size and echotexture. Normal color and spectral Doppler wave forms were documented in the bilateral ovarian arteries and veins. Pelvic fluid: none. US/US pelvic and transvaginal IMPRESSION: Unremarkable pelvic ultrasound. External Record Review External record reviewed: Inpatient record Prescription Management I considered prescription management with: Pain Medication Social Determinants Patient?s care significantly limited by Social Determinants of Health including: Other Social Determinant of Health Critical Care Time Critical Care Time Critical Care Time: No Discharge Plan Discharge Clinical Impression: Vaginal bleeding Patient Disposition: Home, Self-Care Instructions: Menorrhagia (ED) Additional Instructions: Your workup today is reassuring. Your blood work is normal. Your urine does not demonstrate infection. Your test is negative. Your pelvic ultrasound is normal. Your pelvic exam was quite benign. We have sent swabs to the lab to test for gonorrhea, chlamydia, Trichomonas and bacterial vaginosis. You will be contacted if any of these result positive and will be treated appropriately at that time. I did reach out to our on -call sheet metal pattern cutter. He is recommending close outpatient follow-up. Please call your clinic to follow up this week as they may need to change your control method. Return with any new or worsening symptoms such as heavy vaginal bleeding, clotting, fever, chills, nausea, vomiting, worsening abdominal pain. In the case of an emergency call 911. Prescriptions: No Action cyclobenzaprine 10 mg tablet 10 mg PO Q8H Qty: 10 0RF azithromycin 250 mg tablet See Rx Instructions .ROUTE .COMPLEX Qty: 6 0RF Rx Instructions: take 500 mg today (day 1), then 250 mg for 4 days (days 2-5) codeine-guaifenesin [Guaifenesin AC] 10-100 mg/5 mL liquid 5 ml PO Q6H PRN (Reason: cold symptoms) Qty: 120 0RF albuterol sulfate 90 mcg/actuation HFA aerosol inhaler 1 inh inhalation QID PRN (Reason: shortness of breath or wheezing) Qty: 8.5 0RF amoxicillin-pot clavulanate 875-125 mg tablet 1 tab PO BID 7 Days Qty: 14 0RF guaifenesin 200 mg/5 mL liquid 200 mg PO Q4H PRN (Reason: congestion) Qty: 118 0RF prednisone 20 mg tablet 40 mg PO DAILY 5 Days Qty: 10 0RF albuterol sulfate 90 mcg/actuation HFA aerosol inhaler 1 inh inhalation QID PRN (Reason: shortness of breath or wheezing) Qty: 8.5 0RF erythromycin 5 mg/gram (0.5 %) ointment 0.5 inch ophthalmic (eye) TID 7 Days Qty: 3.5 0RF Rx Instructions: Left eye doxycycline monohydrate 100 mg tablet 100 mg PO BID Qty: 14 0RF metronidazole 500 mg tablet 500 mg PO BID 7 Days Qty: 14 0RF acetaminophen [Tylenol Extra Strength] 500 mg tablet 1,000 mg PO QID PRN (Reason: fever or pain) Qty: 14 0RF cyclobenzaprine 10 mg tablet 10 mg PO Q8H PRN (Reason: Muscle spasm) Qty: 14 0RF prenat.vits,bethel,jxw-kuae-phvbe Tablet 1 tab PO DAILY levonorgestrel-ethinyl estrad 0.1-20 mg-mcg tablet 1 tab PO DAILY Qty: 84 4RF Referrals: Karon Powell FNP [Primary Care Provider] - Fortino Lorenzo MD [Physician] - Interventions: ED Discharge Assessment Last Done: 09/06/24 14:39 Discharge Date/Time: 09/06/24 14:40 Print Language: Tuvaluan
--- NOTE | 2024-09-06 13:01 | P.CONOB_ITS ---
CUSTOMS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 - CN: HPI Data of Consult Consult date: 09/06/24 Primary Care Provider: JASMYNE Callejas Consult Narrative Narrative: I was consulted on Maicol Eddy who is a 24 year old female presenting to the ED with complaints of abnormal vaginal bleeding, associated with pelvic cramps last 2 weeks. The workup done emergency room include the following: H&H 12.9/38.6 HCG less than 2 GC/CT, BV panel , trich pending Pelvic ultrasound showed the following: Uterus: The uterus is normal in size, measuring 9.4 x 4.0 x 5.0 cm. Myometrium has a normal echotexture. No fibroids are identified. Endometrium: The endometrial stripe measures 1 mm in thickness. Right ovary: The right ovary measures 2.4 x 1.9 x 1.9 cm. The right ovary is normal in size and echotexture. Left ovary: The left ovary measures 2.6 x 1.6 x 2.7 cm. The left ovary is normal in size and echotexture. Normal color and spectral Doppler wave forms were documented in the bilateral ovarian arteries and veins. Pelvic fluid: none. cc:: CC: OB [facility] Past Medical History Medical History No known health problems Family History Family History Mother No problems noted. Father No problems noted. Maternal Grandfather No problems noted. Maternal Grandmother Hx of diabetes mellitus Paternal Grandfather Hx of coronary artery disease Hx of diabetes mellitus Hx of primary hypertension Paternal Grandmother No problems noted. Sister No problems noted. Paternal Aunt No problems noted. Social History Social History Household Members: Significant Other Alcohol intake: never Advance Directives: No Advance Directives Information Provided: No Do you have a plan to hurt others: No Plan Current occupational status: employed Current occupational exposures/hazards: No Sexual orientation: Straight/Heterosexual Meds Allergies Allergy/AdvReac Type Severity Reaction Status Date / Time No Known Allergies Allergy Verified 09/06/24 09:22 [No Known Allergies*] Home Medications ?Medication ?Instructions ?Recorded ?Confirmed ?Last Taken ?Type prenat.vits,bethel,ica-lnoa-mhipb 1 tab PO DAILY 04/29/20 10/03/20 Unknown History [employer]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 Physical Exam Vitals Vital signs: Temp Pulse Resp BP Pulse Ox O2 Del Method 97.1 F 59 16 98/45 L 99 Room Air 09/06/24 09:19 09/06/24 09:19 09/06/24 09:19 09/06/24 09:19 09/06/24 09:19 09/06/24 09:19 BMI result Body Mass Index 21.3 Additional Comments: Reported by NICHOLE Oro in the emergency room as the following: Pelvic exam minimal blood per vagina no blood clots , closed cervical os , no tenderness [employer]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 - Results Labs 09/06/24 09:33 09/06/24 09:33 Labs: Short CBC 09/06/24 Range/Units 09:33 WBC 5.6 (4.8-10.8) X10*3/uL Hgb 12.9 (12.0-16.0) g/dl Hct 38.6 (37.0-47.0) % Plt Count 249 (160-400) X10*3/uL BMP 09/06/24 09:33 Sodium 139 Potassium 3.7 Chloride 107 Carbon Dioxide 25 BUN 8 L Creatinine 0.70 Calcium 9.2 Liver Function 09/06/24 Range/Units 09:33 Total Bilirubin 0.2 (0.0-1.0) mg/dL AST 13 (5-31) U/L ALT < 6 (0-31) U/L Alkaline Phosphatase 60 (39-117) U/L Albumin 3.9 (3.5-5.0) g/dL Urine 09/06/24 Range/Units 09:34 Urine Color Other A Urine Appearance Cloudy Urine pH 6.5 (5.0-9.0) Ur Specific [place] 1.010 (1.005-1.025) Urine Protein Negative (Neg-Trace) mg/dL Urine Glucose (UA) Negative (Negative) mg/dL Imaging US - abdomen: Radiologist's impression: ITS Impressions Pelvic/Transvag US 09/06/24 11:33 IMPRESSION: Unremarkable pelvic ultrasound. Electronically signed by: Oscar Tao MD 09/06/2024 12:01 PM EDT Assessment and Plan (1) Abnormal uterine bleeding: Status: Acute Given normal H&H and negative workup, recommended close follow-up with her OBGYN for further management. Instructions to be given to patient to come back to the emergency room in case vaginal bleeding is heavy or in case she does not have access to care in a timely manner. I spent a total of 20 minutes reviewing the chart, communicating with the emergency room provider and documenting in the medical record.
[2024-09-06 14:09] LABS: Bacterial Vaginosis PCR NEGATIVE (Negative); Candida Group PCR NOT DETECTED (Not Detect); Candida glab krusei PCR NOT DETECTED (Not Detect); Trichomonas vaginalis PCR NOT DETECTED (Not Detect)
[2024-09-06 14:10] VITALS: BP 99/52; PULSE 54; RESP 14; TEMP 36.4; O2SAT 100
[2024-09-06 14:39] VITALS: BP 99/52; PULSE 54; RESP 14; TEMP 36.4; O2SAT 100
[2024-09-06 14:40] LABS: CT PCR NOT DETECTED (Not Detect.); NG PCR NOT DETECTED (Not Detect.)
== END 2024-09-06 14:40 | disposition home or self-care (01) ==
PROVIDERS: Physician Assistant Medical; Emergency Provider Emergency Medicine; PCP Registered Nurse
DX: N93.9 Abnormal uterine and vaginal bleeding, unspecified (principal); R25.2 Cramp and spasm; R10.2 Pelvic and perineal pain; R39.15 Urgency of urination; Z20.2 Contact with and (suspected) exposure to infections with a predominantly sexual mode of transmission; Z79.899 Other long term (current) drug therapy
CPT/HCPCS: 36415; 76830; 76856; 80053; 81001; 81515; 84702; 85025; 87491; 87591; 93975; 99283; 99284

== ENCOUNTER → 2024-09-06 09:37 | Outpatient (BNV) | payer MEDICAID, SELFPAY | PROVIDERS: Emergency Provider Emergency Medicine; PCP Registered Nurse; Visit Provider Obstetrics & Gynecology | DX: N93.9 Abnormal uterine and vaginal bleeding, unspecified (principal) | CPT/HCPCS: 99447 ==

== ENCOUNTER → 2024-09-06 11:01 | Outpatient (BNV) | payer MEDICAID, SELFPAY | PROVIDERS: Emergency Provider Emergency Medicine; PCP Registered Nurse; Visit Provider Radiology Diagnostic Radiology | DX: R10.2 Pelvic and perineal pain (principal); N93.9 Abnormal uterine and vaginal bleeding, unspecified | CPT/HCPCS: 76830; 76856; 93975 ==

== ENCOUNTER 2024-09-12 09:00 | Outpatient (REF) | payer MEDICAID, SELFPAY ==
--- OUTSIDE RECORDS SUMMARY | 2024-09-12 09:29 | XMS_ITS | Encounter Summary ---
Author Organization [employer] Address [address] [place] [address] Care Team Providers Care Compressor Mechanic Bus Name Role Phone Karon Powell [employer] Primary Care Provider [phone] Ember Gustavo DMD Unavailable Encounter Details Date Type Department Care Team (Late st Contact Info) Description 01/03/2024 Orders Only [facility] [address] [place], [place] [id number] Ysabel Thakkar FNP [address] [place], [place] [phone] Social History Tobacco Use Types Packs/Day Years [...] Description 09/25/2024 2:45 PM EDT Office Visit [facility] [address] [place] [id number] Ene Elmore CNM [address] [place] [address] 11/07/2024 2:00 PM EDT Office Visit [facility] [address] [place] [phone] Karon Powell FNP [address] [place] [phone] documented as of this encounter Visit Diagnoses Not on filedocumented in this encounter Additional Health Concerns Assessment Noted Time PHQ-9 Depression Total Score: 0 09/23/19 24 9:24 AM EDT documented as of this encounter Care Teams Compressor Mechanic Bus Relationship Specialty Start Date End Date Karon Powell FNP [address] [place] [phone] PCP - General Family Medicine 11/03/21 Gustavo Pa DMD [address] [place] [phone] Dental Research Program Internship 07/26/24 documented as of this encounter
--- OUTSIDE RECORDS SUMMARY | 2024-09-12 09:29 | XMS_ITS | Clinical Summary ---
Author Organization [employer] Address [address] [facility] [facility] [address] [place] [address] Care Team Providers Care Pediatric Urologist Name Role Phone Karon Powell DISULFURIZER TENDER Primary Care Provider [phone] Gustavo Pa DMD Unavailable Allergies No known active allergies [...] (one) time each day. 10/22/19 22 Active Xqtcev-RO-Cqipeje n-Petrolatum 1-0.25-14.4-15 % cream Apply to area [...] 10 days 20 capsule 08/15/19 25 Active carbamide peroxide (Debrox) 6.5 % otic solutionIndicatio ns:Cough in adult patient Administer 3-5 drops into affected ear(s) 2 times daily for 4 days. 15 mL 08/15/19 25 025 sulfamethoxazole- trimethoprim (Bactrim DS) 800-160 MG tablet Take 1 tablet by mouth 2 times daily for 3 days. 6 tablet 08/24/19 25 025 amoxicillin-clavu lanate (Augmentin) 875-125 MG tabletIndications :Recurrent acute suppurative otitis media of right ear without spontaneous rupture of tympanic membrane Take 1 tablet by mouth 2 times daily for 10 days. 20 tablet 09/01/19 25 025 Active Problems Problem Noted Date Diagnosed Date Recurrent acute suppurative otitis media of right ear without spontaneous rupture of tympanic membrane 08/31/2024 Pelvic pain 08/31/2024 Assessment & Plan (08/31/2024 4:43 PM EDT): Patient referred to [facility] Vaginal discharge 08/31/2024 Assessment & Plan (08/31/2024 4:42 PM EDT): BV NCV done today patient will be contacted with results Irregular periods 08/31/2024 Assessment & Plan (08/31/2024 4:43 PM EDT): Patient referred to [facility] Dysmenorrhea 07/04/2023 Assessment & Plan (07/04/2023 5:47 [...] Encounters Date Type Department Care Team Description 09/10/2024 Telephone [facility] [address] [place] [phone] Pamella Cleveland RN Results; Lab Orders 09/06/2024 Orders Only GENERIC EXTERNAL DATA DEPARTMENT Provider, Generic External Data 08/31/2024 3:00 PM EDT Office Visit [facility] [address] [address] Ele Monroy MD Recurrent acute suppurative otitis media of right ear without spontaneous rupture of tympanic membrane (Primary Dx); UTI symptoms; Pelvic pain; Vaginal discharge; Irregular periods 08/23/2024 9:40 AM EDT Office Visit [facility] [address] [address] Princess Kaufman DO Acute UTI (Primary Dx); Vaginal discharge 08/14/2024 11:20 AM EDT Office Visit [facility] [address] [address] Sofia Bee MD Right otitis media, unspecified otitis media type (Primary Dx); Cough in adult patient; Acute URI 08/07/2024 Telephone [facility] [address] [place] [address] Zurdo Randall CNM 07/26/2024 Orders Only [facility] [address] [facility] [place] [place] [address] Zurdo Randall CNM Galactorrhea (Primary Dx) 07/20/2024 Orders Only [facility] [address] [facility] [place] [address] Zurdo Randall CNM Elevated TSH (Primary Dx) 07/20/2024 Population Health Risk Score [facility] (C3) Department [address] [place] [address] [phone] Provider, Population Health Generic 07/19/2024 Orders Only [facility] [address] [facility] [place] [address] Zurdo Randall CNM Galactorrhea (Primary Dx); Breast pain, right 07/18/2024 Orders Only [facility] [place] [address] Zurdo Randall CNM 07/17/2024 1:00 PM EDT Office Visit [facility] [place] [address] Zurdo Randall CNM Galactorrhea (Primary Dx) 07/17/2024 Travel 06/15/2024 Telephone [facility] [place] [address] [facility] No Show from Last 3 Months Immunizations [...] Description 09/25/2024 2:45 PM EDT Office Visit [facility] [address] [place], [place] [phone] Zurdo Randall, CNM [address] [place], [place] [phone] 11/07/2024 2:00 PM EDT Office Visit [facility] [address] [place], [place] [phone] [place], Karon, DISULFURIZER TENDER [address] [place], [place] [phone] Health Maintenance Due Date Last Done Comments Dental Prophylaxis 1999 Alcohol/Substance Use Screening 2011 Pneumococcal Vaccine: Pediatrics (0 to 5 Years) and At-Risk Patients (6 to 49) Years) (1 of 2 - PCV) 2018 Dental Oral Exam 10/26/2023 04/25/2023 Pap Smear 11/29/2023 11/28/2020 COVID-19 Vaccine ( - season) 2024 Influenza Vaccine (#1) 2024 , 04/18/2018, 04/05/2017, [...] Procedure Name Priority Date/Time Associated Diagnosis Comments CHLAMYDIA/N. GONORRHOEAE RNA, TMA, UROGENITAL Routine 09/06/2024 12:48 PM EDT BACTERIAL VAGINOSIS PANEL Routine 09/06/2024 12:48 PM EDT WET PREP, GENITAL Routine 09/06/2024 12: 48 PM EDT US PELVIC OVARIAN DOPPLER Routine 09/06/2024 11:33 AM EDT US PELVIS TRANSVAGINAL Routine 09/06/2024 11:33 AM EDT URINALYSIS, COMPLETE, WITH REFLEX TO CULTURE Routine [...] Recently Relevant to Health Maintenance Results * Bacterial Vaginosis (09/06/2024 12:48 PM EDT) Only the most recent of3 resultswithin the time period is included. TRICHOMONAS VAGINALIS DETECTION BY PCR NOT DETECTED Not Detect [facility] BACTERIAL VAGINOSIS DETECTION BY PCR NEGATIVE Negative [facility] Comment:The BV organism targ ets [...] DETECTION BY PCR NOT DETECTED Not Detect [facility] Tata glab krusei PCR NOT DETECTED Not Detect [facility] 09/06/2024 12:4 8 PM EDT 09/06/2024 12:51 PM EDT us Generic External Data Provider LAB MICROBIOLOGY - GENERAL ORDERABLES Final Result [facility] [address] [place] [address] [phone] * Chlamydia/N. Gonorrhoeae RNA, TMA, Urogenitial (09/06/2024 12:48 PM EDT) Only the most recent of3 resultswithin the time period is included. CT PCR NOT DETECTED Not Detect. [facility] Comment:A not detected test result [...] psychologicalconsequences. NG PCR NOT DETECTED Not Detect. [facility] Comment:A not detected test result [...] lead to adverse medical, social or psychologicalconsequences. 09/06/2024 12:4 8 PM EDT 09/06/2024 12:51 PM EDT Narrative [facility] - 09/06/2024 2:40 PM EDT Vaginal us Generic External Data Provider LAB MICROBIOLOGY - GENERAL ORDERABLES Final Result Performing Organization Address [facility] de Phone Number [facility] [address] [place] [phone] * Wet prep, genital (09/06/2024 12:48 PM EDT) Vaginal Fluid Vaginal structure / Unknown 09/06/2024 12:48 PM EDT 09/06/2024 12:51 PM EDT Comment:Vaginal Narrative [facility] - 09/06/2024 1:06 PM EDT Trichomonas Prep Direct Microscopic Exam Trichomonas Prep No trichomonads or yeast seen Specimen Source: Vaginal Generic External Data Provider LAB MICROBIOLOGY - GENERAL ORDERABLES Final Result Performing Organization Address [facility] de Phone Number [facility] [address] [place] [phone] * US PELVIC OVARIAN DOPPLER (09/06/2024 11:33 AM EDT) Anatomical Region Laterality Modality Abdomen Ultrasound 09/06/2024 11:3 3 AM EDT Narrative 09/07/2024 8:36 AM EDT ? [facility] ?[address] ?[place] [address] ? Ultrasound Report ? Signed ? Patient: Maicol Krishna ? MR#: [id number] ? : 2000 ?Acct:[id number] ? Age/Sex: 24 / F ?ADM Date: 09/06/24 ? Loc: HO.ED ? Attending Dr: ? Ordering Physician: Xiomara Hickman ?? Date of Service: 09/06/24 ?? Procedure(s): US pelvic ovarian doppler ?? Accession Number(s): [id number] ? cc: Xiomara Hickman; Karon PowellP ? EXAMINATION: ??US PELVIS TRANSABDOMINAL AND TRANSVAGINAL ? HISTORY: pelvic pain, increased vag bleed ? COMPARISON: There are no prior studies for comparison. ? TECHNIQUE: ? Transabdominal and endovaginal real-time 2D brumfield-scale ultrasound was ?? performed. ??Color and spectral Doppler evaluation of the ovaries was ?? performed. ? FINDINGS: ? Uterus: ??The uterus is normal in size, measuring 9.4 x 4.0 x 5.0 cm. ? Myometrium has a normal echotexture. ??No fibroids are identified. ? Endometrium: ??The endometrial stripe measures 1 mm in thickness. ? Right ovary: ??The right ovary measures 2.4 x 1.9 x 1.9 cm. ??The right ?? ovary is normal in size and echotexture. ? Left ovary: ?? The left ovary measures 2.6 x 1.6 x 2.7 cm. ??The left ?? ovary is normal in size and echotexture. ? Normal color and spectral Doppler wave forms were documented in the ?? bilateral ovarian arteries and veins. ? Pelvic fluid: none. ? US/US pelvic ovarian doppler ?? IMPRESSION: ?? Unremarkable pelvic ultrasound. ? Electronically signed by: ??Oscar Tao MD ??09/06/2024 12:01 PM EDT ? Dictated By: ?Oscar Tao MD ? Signed By: ?<Electronically signed by Oscar Tao MD in OV> ?09/07/24 0835 ? DD/ 1133 ? TD/TT: 09/06/24 1144 ? Senior Database Programmer: ? Procedure Note Karl, Image - 09/07/[address] [address] Ultrasound Report Signed Patient: Maicol Krishna MR#: [id number] : 2000Acct:[id number] Age/Sex: 24 / FADM Date: 09/06/24 Loc: HO.ED Attending Dr: Ordering Physician: Xiomara Hickman Date of Service: 09/06/24 Procedure(s): US pelvic ovarian doppler Accession Number(s): [id number] cc: [facility]ara Hickman; [facility] EXAMINATION: US PELVIS TRANSABDOMINAL AND TRANSVAGINAL HISTORY: pelvic pain, increased vag bleed COMPARISON: There are no prior studies for comparison. TECHNIQUE: Transabdominal and endovaginal real-time 2D brumfield-scale ultrasound was performed. Color and spectral Doppler evaluation of the ovaries was performed. FINDINGS: Uterus: The uterus is normal in size, measuring 9.4 x 4.0 x 5.0 cm. Myometrium has a normal echotexture. No fibroids are identified. Endometrium: The endometrial stripe measures 1 mm in thickness. Right ovary: The right ovary measures 2.4 x 1.9 x 1.9 cm. The right ovary is normal in size and echotexture. Left ovary: The left ovary measures 2.6 x 1.6 x 2.7 cm. The left ovary is normal in size and echotexture. Normal color and spectral Doppler wave forms were documented in the bilateral ovarian arteries and veins. Pelvic fluid: none. US/US pelvic ovarian doppler IMPRESSION: Unremarkable pelvic ultrasound. Electronically signed by: Oscar Tao MD 09/06/2024 12:01 PM EDT Dictated By: Oscar Tao MD Signed By: <Electronically signed by Oscar Tao MD in OV> 09/07/24 0835 DD/ 1133 TD/TT: 09/06/24 1144 Senior Database Programmer: us [facility] External Provider IMG US PROCEDURES Final Result * US Pelvis Transvaginal (09/06/2024 11:33 AM EDT) Anatomical Region Laterality Modality Pelvis Ultrasound 09/06/2024 11:3 3 AM EDT Narrative 09/06/2024 12:04 PM EDT ? [facility] ?[address] ?[place] [address] ? Ultrasound Report ? Signed ? Patient: Ying Eddy,Mayrangelique ? MR#: [id number] ? : 2000 ?Acct:[id number] ? Age/Sex: 24 / F ?ADM Date: 09/06/24 ? Loc: HO.ED ? Attending Dr: ? Ordering Physician: Xiomara Hickman ?? Date of Service: 09/06/24 ?? Procedure(s): US pelvic and transvaginal ?? Accession Number(s): [id number] ? cc: Xiomara Hickman; Karon PowellP ? EXAMINATION: ??US PELVIS TRANSABDOMINAL AND TRANSVAGINAL ? HISTORY: pelvic pain, increased vag bleed ? COMPARISON: There are no prior studies for comparison. ? TECHNIQUE: ? Transabdominal and endovaginal real-time 2D brumfield-scale ultrasound was ?? performed. ??Color and spectral Doppler evaluation of the ovaries was ?? performed. ? FINDINGS: ? Uterus: ??The uterus is normal in size, measuring 9.4 x 4.0 x 5.0 cm. ? Myometrium has a normal echotexture. ??No fibroids are identified. ? Endometrium: ??The endometrial stripe measures 1 mm in thickness. ? Right ovary: ??The right ovary measures 2.4 x 1.9 x 1.9 cm. ??The right ?? ovary is normal in size and echotexture. ? Left ovary: ?? The left ovary measures 2.6 x 1.6 x 2.7 cm. ??The left ?? ovary is normal in size and echotexture. ? Normal color and spectral Doppler wave forms were documented in the ?? bilateral ovarian arteries and veins. ? Pelvic fluid: none. ? US/US pelvic and transvaginal ?? IMPRESSION: ?? Unremarkable pelvic ultrasound. ? Electronically signed by: ??Oscar Tao MD ??09/06/2024 12:01 PM EDT ?? RP ? Dictated By: ?Oscar Tao MD ? Signed By: ?<Electronically signed by Oscar Tao MD in OV> ?09/07/24 0835 ? DD/ ? TD/TT: 09/06/244 ? Senior Database Programmer: ? Procedure Note Donotuseinterpreter, Image - 09/07/[address] [address] Ultrasound Report Signed Patient: Maicol Krishna MR#: [id number] : 2000Acct:[id number] Age/Sex: 24 FADM Date: 09/06/24 Loc: .ED Attending Dr: Ordering Physician: Xiomara Hickman Date of Service: 09/06/24 Procedure(s): US pelvic and transvaginal Accession Number(s): [id number] cc: Xiomara Hickman; [facility] EXAMINATION: US PELVIS TRANSABDOMINAL AND TRANSVAGINAL HISTORY: pelvic pain, increased vag bleed COMPARISON: There are no prior studies for comparison. TECHNIQUE: Transabdominal and endovaginal real-time 2D brumfield-scale ultrasound was performed. Color and spectral Doppler evaluation of the ovaries was performed. FINDINGS: Uterus: The uterus is normal in size, measuring 9.4 x 4.0 x 5.0 cm. Myometrium has a normal echotexture. No fibroids are identified. Endometrium: The endometrial stripe measures 1 mm in thickness. Right ovary: The right ovary measures 2.4 x 1.9 x 1.9 cm. The right ovary is normal in size and echotexture. Left ovary: The left ovary measures 2.6 x 1.6 x 2.7 cm. The left ovary is normal in size and echotexture. Normal color and spectral Doppler wave forms were documented in the bilateral ovarian arteries and veins. Pelvic fluid: none. US/US pelvic and transvaginal IMPRESSION: Unremarkable pelvic ultrasound. Electronically signed by: Oscar Tao MD 09/06/2024 12:01 PM EDT Dictated By: Oscar Tao MD Signed By: <Electronically signed by Oscar Tao MD in OV> 09/07/24 0835 DD/ 1133 TD/TT: 09/06/24 1144 Senior Database Programmer: us [facility] External Provider IMG US PROCEDURES Edited Result - Final * (ABNORMAL) Urinalysis, Complete, with Reflex to Culture (09/06/2024 9:34 AM EDT) Color Urine Other(A) [facility] Comment:PINK Appearance Urine Cloudy [facility] PH 6.5 5.0 - 9.0 [facility] Glucose Urine UA Negative Negative mg/dL [facility] Urine Blood Large (3+)(A) Negative [facility] Specific Fowler - Urine 1.010 1.005 - 1.025 [facility] Urine Protein Negative Neg-Trace mg/dL [facility] Urine Ketones Negative Negative mg/dL [facility] Nitrite Urine Negative Negative [facility] Leukocyte Esterase Urine Trace(A) Negative [facility] RBC Urine >20(A) 0 - 2 /HPF [facility] Urine WBC 0-5 0 - 5 /HPF [facility] Urine Squamous Epithelial Cell 3-5 0 - 2 /HPF [facility] Urine Bacteria None Seen None Seen [facility] Hyaline Casts, Urine 0-2 0 - 2 /LPF [facility] 09/06/2024 9:34 AM EDT 09/06/2024 9:38 AM EDT Narrative [facility] - 09/06/2024 9:44 AM EDT Urine, Clean Catch us Generic External Data Provider LAB URINE ORDERAB LES Final Result [facility] [address] [place] [phone] * (ABNORMAL) Urinalysis w/reflex microscopic (09/06/2024 9:34 AM EDT) Color Urine Other(A) [facility] Comment:PINK Appearance Urine Cloudy [facility] PH 6.5 5.0 - 9.0 [facility] Glucose Urine UA Negative Negative mg/dL [facility] Urine Blood Large (3+)(A) Negative [facility] Specific Fowler - Urine 1.010 1.005 - 1.025 [facility] Urine Protein Negative Neg-Trace mg/dL [facility] Urine Ketones Negative Negative mg/dL [facility] Nitrite Urine Negative Negative [facility] Leukocyte Esterase Urine Trace(A) Negative [facility] 09/06/2024 9:34 AM EDT 09/06/2024 9:38 AM EDT Narrative [facility] - 09/06/2024 9:43 AM EDT Urine, Clean Catch us Generic External Data Provider LAB URINE ORDERAB LES Final Result Performing Organization Address City/State/[facility] Co de Phone Number [facility] [address] [place] [phone] * CBC auto differential (09/06/2024 9:33 AM EDT) White Blood Count 5.6 4.8 - 10.8 X10*3/uL [facility] Red Blood Count 4.25 4.20 - 5.50 X10*6/uL [facility] Hemoglobin 12.9 12.0 - 16.0 g/dl [facility] Hematocrit 38.6 37.0 - 47.0 % [facility] Mean Corpuscular Volume 90.8 80.0 - 98.0 fL [facility] Mean Corpuscular Hemoglobin 30.4 27.0 - 33.0 pg [facility] Mean Corpuscular HGB Conc 33.4 31.0 - 35.0 g/dl [facility] Red Cell Distribution Width 12.5 11.0 - 16.0 % [facility] Platelet Count 249 160 - 400 X10*3/uL [facility] Mean Platelet Volume 9.6 9.4 - 12.3 fL [facility] Neutrophils Percent Auto 55.6 45 - 73 % [facility] Imm Gran Pct Auto 0.4 0.0 - 0.4 % [facility] Lymphocytes Percent Auto 31.7 20 - 40 % [facility] Monocytes Percent Auto 8.0 2 - 11 % [facility] Eosinophils Percent Auto 3.2 0 - 4 % [facility] Basophils Percent Auto 1.1 0 - 2 % [facility] NRBC Pct Auto 0.0 0.0 - 0.2 /100WBC [facility] Neutrophils Absolute Auto 3.1 2.0 - 8.3 x10*3/uL [facility] Imm Gran Abs Auto 0.02 0.00 - 0.03 X10*3/uL [facility] Lymphocytes Absolute Auto 1.8 1.2 - 4.9 X10*3/uL [facility] Monocytes Absolute Auto 0.5 0.1 - 1.2 X10*3/uL [facility] Eosinophils Absolute Auto 0.2 0.0 - 0.4 X10*3/uL [facility] Basophils Absolute Auto 0.1 0.0 - 0.2 X10*3/uL [facility] NRBC Abs Auto 0.000 0.0 - 0.012 X10*3/uL [facility] 09/06/2024 9:33 AM EDT 09/06/2024 9:38 AM EDT us Generic External Data Provider LAB BLOOD ORDERAB LES Final Result [facility] [address] [place], [place] [phone] * BI US Breast Limited Right (09/04/2024 11:00 AM EDT) Anatomical Region Laterality Modality Breast Right Ultrasound 09/04/2024 11:0 0 AM EDT Narrative 09/04/2024 11:39 AM EDT ? [facility] ? [address] ?[place] [address] ? Ultrasound Report ? Signed ? Patient: Maicol Krishna ? MR#: [id number] ? : 2000 ?Acct:[id number] ? Age/Sex: 24 / F ?ADM Date: 09/04/24 ? Loc: HO.MAMMO ? Attending Dr: Zurdo Randall CNM ? Ordering Physician: ZURDO RANDALL CNM ?? Date of Service: 09/04/24 ?? Procedure(s): US breast RT limited mamm only ?? Accession Number(s): [id number] ? cc: ZURDO RANDALL CNM; Karon Powell DISULFURIZER TENDER ? EXAMINATION: ?? US DIAGNOSTIC ULTRASOUND BREAST, [...] DO in OV> ? 09/04/24 1136 ? DD/ 1100 ? TD/TT: 09/04/24 1127 ? Senior Database Programmer: ? Procedure Note Donotuseinterpreter, Image - 09/04/2024 [facility] [address] [place] [address] [place] [address] Ultrasound Report Signed Patient: Maicol Krishna MR#: [id number] : 2000Acct:[id number] Age/Sex: 24 / FADM Date: 09/04/24 Loc: HO.MAMMO Attending Dr: Zurdo Randall CNM Ordering Physician: ZURDO RANDALL CNM Date of Service: 09/04/24 Procedure(s): US breast RT limited mamm only Accession Number(s): [id number] cc: ZURDO RANDALL CNM; [facility] EXAMINATION: US DIAGNOSTIC ULTRASOUND BREAST, RIGHT CLINICAL [...] 09/04/24 1136 DD/ 1100 TD/TT: 09/04/24 1127 Senior Database Programmer: us Zurdo Randall CNM IMG US PROCEDURES Final R esult * (ABNORMAL) POCT urinalysis dipstick manually resulted [...] EDT 08/23/2024 4:56 PM EDT Comment:UACC Narrative [facility] - 08/25/2024 11:45 AM EDT Urine Culture No growth. Specimen Source: Urine clean catch Princess Kaufman DO LAB MICROBIOLOGY - GENERAL O RDERABLES Final Result [facility] [address] [place] [phone] * Influenza B (ID NOW Rapid Molecular) (08/14/2024 10:48 AM EDT) [facility] Influenza B Negative Negative, Indeterminate [facility] Swab 08/14/2024 10:4 8 AM EDT Sofia Bee MD POINT OF CARE TEST ENTER/E DIT ORDERABLES Final Result Performing Organization Address City/[facility]/ZIP Co de Phone Number [facility] [address] [place] [phone] * Influenza A (ID NOW Rapid Molecular) (08/14/2024 10:48 AM EDT) [facility] Influenza A Negative Negative, Indeterminate [facility] Swab 08/14/2024 10:4 8 AM EDT Sofia Bee MD POINT OF CARE TEST ENTER/E DIT ORDERABLES Final Result Performing Organization Address City/[facility]/ZIP Co de Phone Number [facility] [address] [place] [phone] * POCT Rapid COVID Ag (08/14/2024 10:40 AM EDT) [facility] Rapid COVID Ag Negative Swab 08/14/2024 10:4 0 AM EDT Sofia Bee MD POINT OF CARE TEST ENTER/E DIT ORDERABLES Final Result * (ABNORMAL) TSH W/Reflex to FT4 (07/18/2024 9:12 AM EDT) [facility] TSH reflex Free T4 4.36(H) 0.32 - 4.0 uIU/mL [facility] Blood Venous blood specimen / Unknown 07/18/2024 9:12 AM EDT 07/18/2024 11:40 AM EDT Zurdo Randall [facility] LAB BLOOD ORDERABLES Marisel l Result Performing Organization Address [facility] Co de Phone Number [facility] [address] [place] [phone] * T4, Free (07/18/2024 9:12 AM EDT) Pathologist [facility] Free T4 (Free Thyroxine) 0.96 0.71 - 1.85 ng/dL [facility] 07/18/2024 9:12 AM EDT 07/18/2024 11:40 AM EDT [facility]LOOD ORDERABLES Marisel l Result Performing Organization Address [facility] Number [facility] [address] [place] [phone] * Prolactin (07/18/2024 12:00 AM EDT) [facility] Prolactin 19.6 ng/mL [facility] Comment:Reference Range Fema les Non- 3.0-30.0 10.0-209.0 Postmenopausal 2.0-20.0THIS TEST WAS PERFORMED AT:[employer] [address] [phone] KAMINSKI MD Blood Venous blood specimen / Unknown 07/18/2024 07/18/2024 [facility] LAB BLOOD ORDERABLES Marisel l Result Performing Organization Address [facility] de Phone Number [facility] [address] [place] [phone] * Hepatitis C Antibody with Reflex to HCV, RNA, Quantitative, Real-Time PCR (02/17/2024 10:10 AM EDT) [facility] Hepatitis C Antibody Nonreactive Nonreactive [facility] Comment:Antibodies to HCV no t detected; does not exclude early acuteHCV infection. Blood Venous blood specimen / Unknown 02/17/2024 10:10 AM EDT 02/17/2024 11:09 AM EDT Princess Kaufman DO LAB BLOOD ORDERABLES Final R esult Performing Organization Address City/[facility]/ZIP Co de Phone Number [facility] [address] [place] [phone] * HIV-1/2 Antigen and Antibodies, Fourth Generation, with Reflexes (02/17/2024 10:10 AM EDT) Pathologist [facility] HIV AB/AG Nonreactive Nonreactive [facility] Comment:HIV-1 p24 Ag and/or HIV-1/HIV-2 Ab not detected.A test result that is nonreactive does not exclude thepossibility of exposure to or infection with HIV-1 and/orHIV-2. Nonreactive results in this assay for individualswith prior exposure to HIV-1 and/or HIV-2 may be due toantigen and antibody levels that are below the limit ofdetection of this assay.The AIRSIS HIV Ag/Ab Combo assay result andsupplemental assay results should be interpreted inconjunction with the patient's clinical presentation,history and other laboratory results. If the results areinconsistent with clinical evidence, additional testing issuggested to confirm the result. Blood Venous blood specimen / Unknown 02/17/2024 10:10 AM EDT 02/17/2024 11:09 AM EDT Princess Kaufman DO LAB BLOOD ORDERABLES Final R esult Performing Organization Address City/[facility]/ZIP Co de Phone Number [facility] [address] [place] [address] [phone] * Pap Smear (11/28/2020 12:00 AM EDT) Swab Historical Provider LAB CYTOLOGY ORDERABLES F inal Result [facility] [address] [place], [place] [phone] from Last 3 Months or Most Recently Relevant to Health Maintenance Insurance [facility] C3 DENTAL-[facility] MEDICAID STAND ADULT DENTAL - HSN PARTIAL (MEDICAID) Care Teams Pediatric Urologist Relationship Specialty Start Date End Date [place] Karon [facility] [address] [place] [address] PCP - General Family Medicine 11/03/21 Gustavo Pa DMD [address] [place] [address] Dental Hydrocrane Operator 07/26/24
--- OUTSIDE RECORDS SUMMARY | 2024-09-12 09:29 | XMS_ITS | Encounter Summary ---
Author Organization [employer] Address [address] [facility] 7t [place] [address] Care Team Providers Care Rodent Control Worker Name Role Phone Sherry, Karon INSTRUCTOR WARPER Primary Care Provider [phone] Gustavo Pa DMD Unavailable Encounter Details Date Type Department Care Team (Late st Contact Info) Description 05/06/2023 Orders Only [facility] [address] [place], [place] [phone] [facility] [address] [place], [place] [phone] Social History Tobacco Use Types Packs/Day Years [...] Description 09/25/2024 2:45 PM EDT Office Visit [facility] [address] [place] [phone] Ene Elmore CNM [address] [place] [address] 11/07/2024 2:00 PM EDT Office Visit [facility] [address] [place] [address] Karon Powell FNP [address] [place] [address] documented as of this encounter Visit Diagnoses Not on filedocumented in this encounter Additional Health Concerns Assessment Noted Time PHQ-9 Depression Total Score: 0 12/03/19 23 2:52 PM EDT documented as of this encounter Care Teams Rodent Control Worker Relationship Specialty Start Date End Date Karon Powell FNP [address] [place] [phone] PCP - General Family Medicine 11/03/21 Gustavo Pa DMD [address] [place] [address] [phone] Dental Roving Weight Gauger 07/26/24 documented as of this encounter
--- OUTSIDE RECORDS SUMMARY | 2024-09-12 09:29 | XMS_ITS | Encounter Summary ---
Author Organization [employer] Address 75 [facility] 7t [place] [address] Care Team Providers Care Power Plant Supervisor Name Role Phone Karon Powell SPECIAL NEEDS BABYSITTER Primary Care Provider [phone] Ember Gustavo DMD Unavailable Reason for Visit * Reason Onset Date Comments Results 09/10/2024 Lab Orders 09/10/2024 Encounter Details Date Type Department Care Team ([facility] st Contact Info) Description 09/10/2024 Telephone [facility] [address] [place], [place] [phone] Pamella Cleveland, RN [address] [place], [place] [phone] Results; Lab Orders Social History Tobacco Use Types Packs/Day Years [...] AM EDT documented as of this encounter Miscellaneous Notes * Telephone Encounter - Ene Elmore CNM - 09/10/2024 9:32 AM EDT Great - thanks! I will wait for TSH and go from there. * Telephone Encounter - Pamella Cleveland RN - 09/10/2024 9:13 AM EDT Telephone call placed to pt regarding below message. Pt reports still having nipple discharge, rarely . Advised to get TSH drawn. Can come to the lab at her convenience. Informed that if the lab doesn't see the order, tell them it was thyroid testing ordered in July. If they can't find it, can come up to [facility] and we will print out the lab requisition for her. Pt verbalized understanding and denied having any further questions or concerns at this time.' Please relay normal breast imaging. Ask Mayrangelique to get bloodwork to check thyroid and let meknow if nipple discharge continues. Thanks! documented in this encounter Plan of Treatment Upcoming Encounters Date Type Department Care Team (Late st Contact Info) Description 09/25/2024 2:45 PM EDT Office Visit [facility] [address] [place], [place] [phone] Ene Elmore CNM [address] [place] [address] 11/07/2024 2:00 PM EDT Office Visit [facility] [address] [place] [address] Karon Powell FNP [address] [place] [address] documented as of this encounter Visit Diagnoses Not on filedocumented in this encounter Additional Health Concerns Assessment Noted Time PHQ-9 Depression Total Score: 0 09/23/19 24 9:24 AM EDT documented as of this encounter Care Teams Power Plant Supervisor Relationship Specialty Start Date End Date Karon Powell FNP [address] [place] [address] [phone] PCP - General Family Medicine 11/03/21 Gustavo Pa DMD [address] [place] [address] [phone] Dental Retail Financial Analyst 07/26/24 documented as of this encounter
--- OUTSIDE RECORDS SUMMARY | 2024-09-12 09:29 | XMS_ITS | Encounter Summary ---
Author Organization [employer] Address [address] [facility] 7t [place] [address] Care Team Providers Care Traffic I Manager Name Role Phone Sherry [facility] Primary Care Provider [phone] Ember Gustavo DMD Unavailable Reason for Visit * Reason Onset Date Comments Results 05/14/2022 triage 05/14/2022 Encounter Details Date Type Department Care Team ([facility] st Contact Info) Description 05/14/2022 Telephone [facility] [address] [place], [place] [phone] [facility] [address] [place], [place] [phone] Results; triage Social History Tobacco Use Types [...] lab work results Please contact pt at [phone] documented in this encounter Plan of Treatment Upcoming Encounters Date Type Department Care Team (Late st Contact Info) Description 09/25/2024 2:45 PM EDT Office Visit [facility] [address] [place] [address] Ene Elmore CNM [address] [place] [address] 11/07/2024 2:00 PM EDT Office Visit [facility] [address] [place] [address] Karon Powell FNP [address] [place] [address] documented as of this encounter Visit Diagnoses Not on filedocumented in this encounter Care Teams Traffic I Manager Relationship Specialty Start Date End Date Karon Powell FNP [address] [place] [phone] PCP - General Family Medicine 11/03/21 Gustavo Pa DMD [address] [place] [phone] Dental Account Auditor 07/26/24 documented as of this encounter
--- OUTSIDE RECORDS SUMMARY | 2024-09-12 09:29 | XMS_ITS | Encounter Summary ---
Author Organization [employer] Address [address] [facility] 7t [place] [address] Care Team Providers Care Supervisor Paste Mixing Name Role Phone Sherry, Karon SPECIAL EDUCATION RESOURCE TEACHER Primary Care Provider [phone] Gustavo Pa DMD Unavailable Encounter Details Date Type Department Care Team (Late st Contact Info) Description 05/11/2023 Orders Only [facility] [address] [place], [place] [phone] [place] Karon [facility] [address] [place], [place] [phone] Social History Tobacco Use Types Packs/Day Years [...] Description 09/25/2024 2:45 PM EDT Office Visit [facility] [address] [place] [phone] Ene Elmore CNM [address] [place] [address] 11/07/2024 2:00 PM EDT Office Visit [facility] [address] [place] [address] Karon Powell FNP [address] [place] [address] documented as of this encounter Visit Diagnoses Not on filedocumented in this encounter Additional Health Concerns Assessment Noted Time PHQ-9 Depression Total Score: 0 12/03/19 23 2:52 PM EDT documented as of this encounter Care Teams Supervisor Paste Mixing Relationship Specialty Start Date End Date Karon Powell FNP [address] [place] [address] PCP - General Family Medicine 11/03/21 Gustavo Pa DMD [address] [place] [phone] Dental Enterprise Architect 07/26/24 documented as of this encounter
== END 2024-09-12 09:01 | disposition home or self-care (01) ==
LOC: HO.HHCL 09:00
PROVIDERS: Visit Provider Advanced Practice Midwife
DX: R79.89 Other specified abnormal findings of blood chemistry (principal)
CPT/HCPCS: 36415; 84443

== ENCOUNTER 2024-09-19 11:40 | Outpatient (REF) | payer OTHER, SELFPAY ==
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
--- OUTSIDE RECORDS SUMMARY | 2024-09-19 12:34 | XMS_ITS | Clinical Summary ---
Author Organization [facility] ity Address [address] [place] [address] Care Team Providers Care Boom Supervisor Name Role Phone Unavailable Primary Care Provider [...]
== END 2024-09-19 11:41 | disposition home or self-care (01) ==
LOC: HO.HHCX 11:40
PROVIDERS: Visit Provider Family Medicine
DX: M54.2 Cervicalgia (principal); M25.511 Pain in right shoulder
CPT/HCPCS: 72040; 73030

== ENCOUNTER → 2024-09-19 11:41 | Outpatient (BNV) | payer OTHER, SELFPAY | PROVIDERS: Visit Provider Radiology Diagnostic Radiology | DX: M25.511 Pain in right shoulder (principal); W19.XXXA Unspecified fall, initial encounter | CPT/HCPCS: 72040; 73030 ==

== ENCOUNTER 2025-03-14 11:18 | Outpatient (REF) | payer OTHER, SELFPAY ==
--- NOTE | ~2025-03-14 | XR_ITS ---
EXAMINATION: XR HAND, RIGHT CLINICAL INFORMATION: pain at base of 4th and 5th digits x 2 mos s/p trauma COMPARISON: X-ray 08/26/2021 TECHNIQUE: PA, lateral, and oblique views of the right hand. FINDINGS: There is limited evaluation of the base of the third and fourth metatarsals/CMC joints due to overlapping densities. No acute fracture is otherwise seen. No dislocation. Ulnar negative variance. No erosions. No abnormal soft tissue calcification. XR/XR hand RT min 3V IMPRESSION: Limited evaluation of the base of the third and fourth metacarpals/CMC joints due to overlapping osseous structures. No acute fractures otherwise seen. Additional/follow-up imaging as indicated. Electronically signed by: Norm De La O MD 03/14/2025 01:08 PM [facility]
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
--- OUTSIDE RECORDS SUMMARY | 2025-03-14 14:05 | XMS_ITS | Encounter Summary ---
Author Organization [employer] Address [address] [facility] 7t [place] [address] Care Team Providers Care Manager Action Name Role Phone Karon Powell CONTROLS PROJECT ENGINEER Primary Care Provider [phone] Gustavo Pa DMD Unavailable Encounter Details Date Type Department Care Team (Late st Contact Info) Description 05/06/2023 Orders Only [facility] [address], [place] [phone] Sherry, Karon [facility] [address] [place], [place] [phone] Social History Tobacco Use Types Packs/Day Years [...] documented as of this encounter Care Teams Manager Action Relationship Specialty Start Date End Date Karon Powell FNP [address] [place] [address] PCP - General Family Medicine 11/03/21 Gustavo Pa DMD [address] [place] [address] Dental Thermometer Production Worker 07/26/24 documented as of this encounter
--- OUTSIDE RECORDS SUMMARY | 2025-03-14 14:05 | XMS_ITS | Clinical Summary ---
Author Organization [employer] Address [address] [facility] 7t [place] [address] Care Team Providers Care Child Care Supervisor Name Role Phone Karon Powell PROFESSOR OF FINE ART Primary Care Provider [phone] EmberGustavo DMD Unavailable Allergies No known active allergies Medications emtricitabine-te nofovir DF (Truvada) 200-300 MG tablet Take 1 tablet by mouth at bed time. 022 Active fluticasone (Flonase Allergy Relief) 50 MCG/ACT nasal spray Administer 2 sprays into affected nostril(s) at bed time. 022 Active Aesudn-YI-Ztwmsk in-Petrolatum 1-0.25-14.4-15 % cream Apply to area 2x daily 022 Active escitalopram (Lexapro) 5 MG tablet Take 5 mg by mouth at bedtime. 023 Active FLUoxetine (PROzac) 20 MG capsule Take 20 mg by mouth in the morning. 024 Active etonogestrel-eth inyl estradiol (NuvaRing) 0.12-0.015 MG/24HR vaginal ringIndications: Encounter for surveillance of vaginal ring hormonal contraceptive device Insert vaginally and leave in place for 3 consecutive weeks, then remove for 1 week. Discard old ring. Repeat cycle. 1 Ring. 11 025 Active naproxen (Naprosyn) 500 MG tablet Take 1 tablet (500 mg) by mouth if needed in the morning and at bedtime for mild pain. 40 tablet 1 025 2025 Active baclofen (Lioresal) 10 MG tablet Take 1 tablet (10 mg) by mouth if needed in the morning, at noon, and at bedtime for muscle spasms. 60 tablet 1 Active Diclofenac Sodium 1 % gel Apply 2 g topically if needed in the morning, at noon, in the evening, and at bedtime (pain). 150 g 3 Active budesonide-formo terol (Symbicort) 80-4.5 MCG/ACT inhalerIndicatio ns:Mild intermittent asthma without complication Inhale 2 puffs twie daily. Rinse mouth with water after use to reduce aftertaste and incidence of candidiasis. Do not swallow. 1 each 11 Active cetirizine (ZyrTEC) 10 MG tabletIndication s:Mild intermittent asthma without complication Take 1 tablet (10 mg) by mouth Once per day. 30 tablet 11 2025 Active hydrocortisone 1 % ointmentIndicati ons:Mild intermittent asthma without complication Apply topically 2 times daily. 28 g Active docusate sodium (Colace) 100 MG capsule Take 1 capsule (100 mg) by mouth 2 times daily. 180 capsule 3 025 2025 Active polycarbophil (Fibercon) 625 MG tablet Take 1 tablet (625 mg) by mouth 2 times daily. 180 tablet 3 025 2025 Active polyethylene glycol, PEG, 3350 (MiraLax) 17 GM/SCOOP powder Take 17 g by mouth if needed each day (constipation) for up to 3 days. 527 g 3 025 2024 Active witch rogers-glycerin (Tucks) pad Apply topically if needed for hemorrhoids. 96 each 3 Active hydrocortisone (Proctosol HC) 2.5 % rectal cream Insert into the rectum if needed in the morning and at bedtime for hemorrhoids. 28 g 3 Active Methylcellulose, Laxative, (Citrucel) 500 MG tablet Take 2 capsules by mouth in the morning. 022 2024 Discontinued polyethylene glycol, PEG, 3350 (MiraLax) 17 GM/SCOOP powder Take 17 g by mouth 1 (one) time each day. 022 2024 Discontinued hydrocortisone (Anusol-HC) 2.5 % rectal creamIndications :External hemorrhoids Apply small quantity to skin around anus twice daily 28 g 023 2024 Discontinued amoxicillin (Amoxil) 500 MG capsuleIndicatio ns:Cough in adult patient Take 1 tab po bid for 10 days 20 capsule 025 2024 Discontinued(T herapy completed) Active Problems Problem Noted Date Diagnosed Date Recurrent acute suppurative otitis media of right ear without spontaneous rupture of tympanic membrane 08/31/2024 Pelvic pain 08/31/2024 Assessment & Plan (08/31/2024 4:43 PM EDT): Patient referred to IMAGING TECHNICIAN Vaginal discharge 08/31/2024 Assessment & Plan (08/31/2024 4:42 PM EDT): BV NCV done today patient will be contacted with results Irregular periods 08/31/2024 Assessment & Plan (08/31/2024 4:43 PM EDT): Patient referred to IMAGING TECHNICIAN Dysmenorrhea 07/04/2023 Assessment & Plan (07/04/2023 5:47 PM EST): Requesting nuva ring, poc hcg negative, however pt aware that it may be too soon to detect , aware to consider waiting until next menses, or repeating test at home Side effects reviewed Mild intermittent asthma 12/11/2022 Overview (12/11/2022): PRN albuterol Anxiety and depression 07/09/2022 Overview (12/11/2022): Escitalopram Established with therapist Resolved Problems Problem Noted [...] Encounters Date Type Department Care Team Description 03/14/2025 10:40 AM EST Office Visit [facility] [address] [place] [address] Princess Kaufman DO Generalized abdominal pain (Primary Dx); Right hand pain 03/14/2025 Travel 03/01/2025 Patient Outreach [facility] [address] [place], [place] [phone] RyeKaron FNP Pre-visit Planning (SDOH was already completed) 01/10/2025 Telephone [facility] [address] [place] [address] SherryKaron bishop FNP oct recall from Last 3 Months Immunizations Immunization Administration Dates Next Due Pneumococcal Conjugate PCV 20 11/07/2024 Tdap 08/07/2018,01/08/2011 Family History Medical History Relation [...] Q2 Not on file 06/04/2024 Comments No Intention Date Recorded No desire to become (finding) 0 07/17/2024 Sex and Gender Information Value Date Recorded [...] Mass Index 22.68 03/14/2025 10:31 AM EST Plan of Treatment Health Maintenance Due Date Last Done Comments Dental Prophylaxis 2000 Disability Screening 2000 Dental Oral Exam 10/26/2023 04/25/2023 Pap Smear 11/29/2023 11/28/2020 Dental X-Ray: Bitewings 12/05/2024 12/05/19 24, 04/25/2023, 04/13/2022 COVID-19 Vaccine ( season) 2025 01/07/2022, 12/04/2021 Influenza Vaccine (#1) 2025 , 04/18/2018, 04/05/2017, Additional history exists SDOH Screening 06/04/2025 06/04/2024 Family Planning (PISQ) 07/17/2025 07/17/2024 Alcohol/Substance Use Screening 11/07/2025 11/07/2024 Depression Screening 11/07/2025 11/07/2024, 11/08/19 25 Tobacco Screening 03/14/2026 03/14/2025 Dental X-Ray: Full Mouth 04/26/2026 04/25/2023 DTaP/Tdap/Td [...] 12/23/2021 Hepatitis C Screening Completed 02/17/2024, 023 Pneumococcal Vaccine: Pediatrics (0 to 5 Years) and At-Risk Patients (6 to 49) Years Completed 11/07/2024 Meningococcal B Vaccine Aged Out No l onger eligible based on patient's age to complete this topic RSV under 20 months Aged Out No [...] 03/14/2025 10:44 AM EST Generalized abdominal pain HEPATITIS C AB W/REFL TO HCV RNA, [...] Recently Relevant to Health Maintenance Results * XR Hand 3+ Views Right (03/14/2025 12:30 PM EST) Anatomical Region Laterality Modality Upper Extremities, Hand Right Radiogra phic Imaging 03/14/2025 12:3 0 PM EST Narrative 03/14/2025 1:11 PM EST [address] [address] XRay Report Signed Patient: Maicol Krishna MR#: [id number] : 2000 Acct:[id number] Age/Sex: 24 / F ADM Date: 03/14/25 Loc: HO.HHCX Attending Dr: Princess Kaufman DO Ordering Physician: Princess Kaufman DO Date of Service: 03/14/25 Procedure(s): XR hand RT min 3V Accession Number(s): [id number] cc: Princess Kaufman DO Reason for Exam: [...] De La O MD 03/14/2025 01:08 PM [facility] Dictated By: Norm De La O MD Signed By: <Electronically signed by Norm De La O MD in OV> 03/14/25 1308 DD/ 1230 TD/TT: 03/14/25 1235 Registered Travel Nurse: ARCHANA Procedure Note Donotuseinterpreter, Image - 03/14/[address] [address] XRay Report Signed Patient: Maicol Krishna MR#: [id number] : 2000Acct:[id number] Age/Sex: 24 FADM Date: 03/14/25 Loc: HO.HHCX Attending Dr: Princess Kaufman DO Ordering Physician: Princess Kaufman DO Date of Service: 03/14/25 Procedure(s): XR hand RT min 3V Accession Number(s): [id number] cc: Princess Kaufman DO Reason for Exam: [...] La O MD 03/14/2025 01:08 PM EST RP Dictated By: Norm De La O MD Signed By: <Electronically signed by Norm De La O MD in OV> 03/14/25 1308 DD/ 1230 TD/TT: 03/14/25 1235 Registered Travel Nurse: ARCHANA Princess Kaufman DO IMG XR PROCEDURES [...] Media Lot # [id number] Lot# Expiration Date [id number] Urine (Urine, Random) 03/14/2025 10:45 AM EST Princess Shae DO POINT OF CARE TEST ENTER/IVORY T ORDERABLES Final Result * POCT Urine (03/14/2025 10:44 AM EST) Preg Test, Ur Negative Negative, Indeterminate, None Detected, Invalid, Specimen unsatisfactory for evaluation, Weakly Positive, 2+ QC Media Lot # [id number] Lot# Expiration Date [id number] Urine 03/14/2025 10:4 4 AM EST Princess Kaufman DO POINT OF CARE TEST ENTER/IVORY T ORDERABLES Final Result * Hepatitis C Antibody with Reflex to HCV, RNA, Quantitative, Real-Time PCR (02/17/2024 10:10 AM EDT) Hepatitis C Antibody Nonreactive Nonreactive [facility] Comment:Antibodies to HCV no t detected; does not exclude early acuteHCV infection. Blood Venous blood specimen / Unknown 02/17/2024 10:10 AM EDT 02/17/2024 11:09 AM EDT Princess Kaufman DO LAB BLOOD ORDERABLES Final R esult Performing Organization Address [facility]/ZIP Co de Phone Number [facility] [address] [place] [phone] * HIV-1/2 Antigen and Antibodies, Fourth Generation, with Reflexes (02/17/2024 10:10 AM EDT) HIV AB/AG Nonreactive Nonreactive [facility] Comment:HIV-1 p24 Ag and/or HIV-1/HIV-2 Ab not detected.A test result that is nonreactive does not exclude thepossibility of exposure to or infection with HIV-1 and/orHIV-2. Nonreactive results in this assay for individualswith prior exposure to HIV-1 and/or HIV-2 may be due toantigen and antibody levels that are below the limit ofdetection of this assay.The Sorbisense HIV Ag/Ab Combo assay result andsupplemental assay results should be interpreted inconjunction with the patient's clinical presentation,history and other laboratory results. If the results areinconsistent with clinical evidence, additional testing issuggested to confirm the result. Blood Venous blood specimen / Unknown 02/17/2024 10:10 AM EDT 02/17/2024 11:09 AM EDT Princess Kaufman DO LAB BLOOD ORDERABLES Final R esult Performing Organization Address City/[facility]/ZIP Co de Phone Number [facility] [address] [place] [phone] * Pap Smear (11/28/2020 12:00 AM EDT) Swab us Historical Provider MD LAB CYTOLOGY ORDERABLES F inal Result [facility] [address] [place] [phone] from Last 3 Months or Most Recently Relevant to Health Maintenance Insurance [facility] C3 DENTAL-[facility] MEDICAID STAND ADULT DENTAL - HSN PARTIAL (MEDICAID) [employer] Care Teams Child Care Supervisor Relationship Specialty Start Date End Date Karon Powell FNP [address] [place], [place] PCP - General Family Medicine 11/03/21 Gustavo Pa DMD [address] [place], [place] Dental Branch Maker 07/26/24
--- OUTSIDE RECORDS SUMMARY | 2025-03-14 14:05 | XMS_ITS | Encounter Summary ---
Author Organization [employer] Address [address] [facility] [address] [place] [address] Care Team Providers Care Image Assembler Name Role Phone Karon Powell [facility] Primary Care Provider [phone] Gustavo Pa DMD Unavailable Reason for Visit * Reason Onset Date Comments Results 05/14/2022 triage 05/14/2022 Encounter Details Date Type Department Care Team ([facility] st Contact Info) Description 05/14/2022 Telephone [facility] [address] [place], [place] [phone] Sherry, [facility] [address] [place] [address] Results; triage Social History Tobacco Use Types [...] lab work results Please contact pt at [phone] documented in this encounter Plan of Treatment Not on file documented as of this encounter Visit Diagnoses Not on filedocumented in this encounter Care Teams Image Assembler Relationship Specialty Start Date End Date KillingworthKaron bishop FNP [address] [place] [address] PCP - General Family Medicine 11/03/21 Gustavo Pa DMD [address] [place], [place] [phone] Dental Manager [employer] Sales 07/26/24 documented as of this encounter
--- OUTSIDE RECORDS SUMMARY | 2025-03-14 14:05 | XMS_ITS | Encounter Summary ---
Author Organization [employer] Address [address] [facility] 7t [place] [address] Care Team Providers Care Bottle Label Inspector Name Role Phone Karon Powell RECREATION AIDE Primary Care Provider [phone] Ember Gustavo DMD Unavailable Encounter Details Date Type Department Care Team (Latest Contact Info) Description 03/14/2025 Travel Social History Tobacco Use Types Packs/Day [...] documented as of this encounter Care Teams Bottle Label Inspector Relationship Specialty Start Date End Date Karon Powell FNP [address] [place] [address] PCP - General Family Medicine 11/03/21 Gustavo Pa DMD [address] [place] [address] Dental Hand Shoe Cutter 07/26/24 documented as of this encounter
--- OUTSIDE RECORDS SUMMARY | 2025-03-14 14:05 | XMS_ITS | Encounter Summary ---
Author Organization [employer] Address [address] [facility] 7t [place] [address] Care Team Providers Care Professor Of Legal Studies Name Role Phone Sherry [facility] Primary Care Provider Gustavo Pa DMD Unavailable Encounter Details Date Type Department Care Team (Late st Contact Info) Description 05/11/2023 Orders Only [facility] [address] [place], [place] [phone] [place] [facility] [address] [place], [place] [phone] Social History Tobacco Use Types Packs/Day Years [...] documented as of this encounter Care Teams Professor Of Legal Studies Relationship Specialty Start Date End Date Karon Powell FNP [address] [place] [address] PCP - General Family Medicine 11/03/21 Gustavo Pa DMD [address] [place] [address] Dental Benefits Coordinator 07/26/24 documented as of this encounter
--- OUTSIDE RECORDS SUMMARY | 2025-03-14 14:05 | XMS_ITS | Encounter Summary ---
Author Organization [employer] Address [address] [facility] 7t [place] [address] Care Team Providers Care Health And Social Care Teacher Name Role Phone Karon Powell CEMENT CUTTER Primary Care Provider Gustavo Pa DMD Unavailable Encounter Details Date Type Department Care Team (Late st Contact Info) Description 01/03/2024 Orders Only [facility] [address] [place], [place] [phone] Ysabel Thakkar FNP [address] [place], [place] [phone] Social History Tobacco Use Types Packs/Day Years [...] documented as of this encounter Care Teams Health And Social Care Teacher Relationship Specialty Start Date End Date Karon Powell FNP [address] [place] [address] PCP - General Family Medicine 11/03/21 Gustavo Pa DMD [address] [place] [address] Dental Civil Defense Director 07/26/24 documented as of this encounter
== END 2025-03-14 11:19 | disposition home or self-care (01) ==
LOC: HO.HHCX 11:18
PROVIDERS: Visit Provider Family Medicine
DX: M79.641 Pain in right hand (principal)
CPT/HCPCS: 73130

== ENCOUNTER → 2025-03-14 11:18 | Outpatient (BNV) | payer OTHER, SELFPAY | PROVIDERS: Visit Provider Radiology Diagnostic Ultrasound | DX: M79.641 Pain in right hand (principal) | CPT/HCPCS: 73130 ==

== ENCOUNTER 2025-04-17 09:14 | Outpatient (AMB) | payer OTHER, MEDICAID, SELFPAY ==
--- NOTE | 2025-04-17 09:16 | A.OFFVIS_ITS ---
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 Patient states about 2-3 months ago she punched a wall. She compains of pain on her right middle, ring, and small finger, primarily on the dorsal aspect. She explains pain worsen when it is cold outside. She states she is not gaining her ROM back. She denies any numbness, tingling, finger locking. She is not taking any pain medications at this time. She denies any previous injuries or surgeries to the right hand. Allergies No Known Allergies (No Known Allergies*) Allergy (Verified 04/17/25 09:21) HPI HPI BOOT LACE CUTTER MACHINE: RT RF & SF, punch wall 2 mths ago: Details: Maicol is a 24 year old right hand dominant female who present today as a New Patient for evaluation of Right Hand Pain. Patient states about 2-3 months ago she punched a wall. She compains of pain on her right middle, ring, and small finger, primarily on the dorsal aspect. She explains pain worsen when it is cold outside. She states she is not gaining her ROM back. Patient states that she has had x-rays previously, and these did not demonstrate any fracture. Patient does state overall, that her pain has improved significantly, but that she is just not back to 100% like she was prior to her injury. She denies any numbness, tingling, finger locking. She is not taking any pain medications at this time. She denies any previous injuries or surgeries to the right hand. [facility] Medical History No known health problems Family History Mother No problems noted. Father No problems noted. Maternal Grandfather No problems noted. Maternal Grandmother Hx of diabetes mellitus Paternal Grandfather Hx of coronary artery disease Hx of diabetes mellitus Hx of primary hypertension Paternal Grandmother No problems noted. Sister No problems noted. Paternal Aunt No problems noted. 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 Neuro: Normal sensation of the tips of all digits of the right hand at this time Vascular: Cap refill brisk Pain: Minimal tenderness to palpation of right 5th metacarpal head No tenderness to palpation anywhere else in the right hand or digits of the right hand ROM: Patient is able to make a closed fist and extend all digits of the right hand fully and without difficulty Skin: No lacerations or abrasions. General: No ecchymosis, erythema, or evidence of infection. Psych: Appears grossly normal Affect normal Attitude cooperative Results Reviewed Results Reviewed: X-rays obtained on 03/17/2025 and independently reviewed by me, Rohit Barbour, demonstrate no fracture or acute bony abnormality of the right hand. Assessment & Plan Assessment & Plan (1) Contusion of right hand: Code(s): S60.221A - Contusion of right hand, initial encounter Category: Medical Plan 1. Bony contusion of right hand after punching a wall Date of injury approximately 2 months ago Patient is educated about this condition Patient is educated about the typical treatment course At this time, there is no acute intervention indicated at this time, patient should just proceed with conservative pain management measures, such as rest, ice, elevation, and continuing with range of motion of the right hand If patient ceases to continue experiencing improvement, or notices worsening of symptoms, she should call us for re-evaluation Patient understands this and is amenable to this plan Follow-up as needed Coding Level of Care Code New Pt Level 3 (30179) Diagnoses Contusion of right hand S60.221A
[2025-04-17 09:17] VITALS: BMI 21.3
== END 2025-04-17 09:32 | disposition home or self-care (01) ==
LOC: HO.HOS 09:14
DX: S60.221A Contusion of right hand, initial encounter (principal)
CPT/HCPCS: 99203